=== PATIENT | male | born 1975 | race Caucasian/White ===

== ENCOUNTER 2017-05-29 23:46 | Emergency (ER) | payer OTHER ==
[2017-05-30 00:03] VITALS: BP 133/88; PULSE 111; TEMP 98; BMI 47.7
--- NOTE | 2017-05-30 02:10 | PDOC ---
History of Present Illness <Chasity Rizo - Last Filed: 05/30/17 02:11> - General History Source: Patient Exam Limitations: No Limitations - History of Present Illness Occurred: reports: other (TODAY) Pain Location: reports: face, head Method of Injury: Yes: fall Modifying Factors: improves with: other (PT WAS SEEN A FEW HOURA AGO IN THIS ER BUT THEN LEFT AND WAS FOUND IN ANOTHER PART OF THE HOSPITAL) Loss of Consciousness: unsure <Karen Santoro - Last Filed: 05/30/17 02:24> - General Chief Complaint: Injury Stated Complaint: FALL Time Seen by Provider: 05/30/17 00:11 Past History <Chasity Rizo - Last Filed: 05/30/17 02:11> - Past Medical History Anemia: No Asthma: No Cancer: No Cardiac Disorders: No CVA: No COPD: No CHF: No Dementia: No Diabetes: No GI Disorders: No Disorders: No HTN: No Hypercholesterolemia: No Kidney Stones: No Liver Disease: No Suicide Attempt (Hx): No Seizures: No Thyroid Disease: No - Surgical History Abdominal Surgery: No Appendectomy: No Cardiac Surgery: No Cholecystectomy: No Lung Surgery: No Neurologic Surgery: No Orthopedic Surgery: No - Reproductive History Testicular Surgery: No - Immunization History Immunization Up to Date: Yes - Psycho/Social/Smoking Cessation Hx Anxiety: No Suicidal Ideation: No Smoking Status: No Smoking History: Unknown if ever smoked Have you smoked in the past 12 months: Yes Number of Cigarettes Smoked Daily: 1 Cigars Per Day: 0 Information on smoking cessation initiated: No 'Breaking Loose' booklet given: 10/10/15 Hx Alcohol Use: Yes Drug/Substance Use Hx: Yes Substance Use Type: Alcohol, Heroin, Marijuana Hx Substance Use Treatment: Yes <Karen Santoro - Last Filed: 05/30/17 02:24> - Past Medical History Allergies/Adverse Reactions: Allergies Allergy/AdvReac Type Severity Reaction Status Date / Time No Known Allergies Allergy Verified 05/29/17 19:51 Home Medications: Ambulatory Orders Quetiapine Fumarate [Seroquel] 50 mg PO HS #30 tablet 10/11/15 Trauma Specific PMHX - Complaint Specific PMHX Arthritis: No <Karen Santoro - Last Filed: 05/30/17 02:24> *Physical Exam - Vital Signs Last Vital Signs Temp Pulse Resp BP Pulse Ox 98 F 111 H 18 133/88 99 05/29/17 23:55 05/29/17 23:55 05/29/17 23:55 05/29/17 23:55 05/29/17 23:55 - Physical Exam Comments: 05/30/17 02:11 HEAD: facial hematoma and occipital hematoma. PERRL, EOMI. NECK: No cervical or vertebral tenderneess. LUNGS: Clear to auscultation. ABDOMEN: No rebound or guarding EXTREMITIES: extensive superficial laceration to all his extremities. 10 cm area of ecchymosis on posterior left shoulder. NEURO: Alert, ambulatory PSYCH: combative, agitated, used profuse profanity towards staff <Chasity Rizo - Last Filed: 05/30/17 02:11> - Vital Signs Last Vital Signs Temp Pulse Resp BP Pulse Ox 98 F 111 H 18 133/88 99 05/29/17 23:55 05/29/17 23:55 05/29/17 23:55 05/29/17 23:55 05/29/17 23:55 <Karen Santoro - Last Filed: 05/30/17 02:24> ED Treatment Course - RADIOLOGY Radiology Studies Ordered: Category Date Time Status FACIAL BONES CT W/O CONTRAST [CT] Stat CT Scan 05/30/17 00:[address] WITHOUT CONTRAST [CT] Stat CT Scan 05/30/17 00:13 Taken <Karen Santoro - Last Filed: 05/30/17 02:24> Medical Decision Making - Medical Decision Making 05/30/17 02:14 Patient went missing and left the ED and was found in another part of the hospital <Chasity Rizo - Last Filed: 05/30/17 02:11> - Medical Decision Making 05/30/17 02:20 CAT scan of the head is negative for any acute fracture or intracranial pathology. There is no intracranial hemorrhage CT SCAN OF FACIAL BONES was negative for any facial fractures <Karen Santoro - Last Filed: 05/30/17 02:24> *DC/Admit/Observation/Transfer <Chasity Rizo - Last Filed: 05/30/17 02:11> <Karen Santoro - Last Filed: 05/30/17 02:24> Diagnosis at time of Disposition: PCP dependence., Opioid dependence, Abrasions of multiple sites Head trauma Qualifiers: Encounter type: initial encounter Qualified Code(s): S09.90XA - Unspecified injury of head, initial encounter - Discharge Dispostion Disposition: HOME - Patient Instructions Printed Discharge Instructions: DI for Closed Head Injury, DI for Abrasion Additional Instructions: PLEASE APPLY BACITRACIN TO YOUR ABRASIONS RETURN FOR ANY WORSENING SYMPTOMS
== END 2017-05-30 02:30 | disposition home or self-care (01) ==
LOC: JER 23:46
DX: S09.8XXA Other specified injuries of head, initial encounter (principal); M25.511 Pain in right shoulder; M25.512 Pain in left shoulder; M25.551 Pain in right hip; M25.552 Pain in left hip; T14.8 Other injury of unspecified body region; W17.81XD Fall down embankment (hill), subsequent encounter; F16.20 Hallucinogen dependence, uncomplicated; F10.10 Alcohol abuse, uncomplicated; F12.10 Cannabis abuse, uncomplicated
CPT/HCPCS: 70450-TC; 70486-TC; 99282-25

== ENCOUNTER → 2017-05-29 | Emergency (ER) | payer OTHER ==
[~2017-05-29] MED LIST: KETOROLAC TROMETHAMINE 30 MG/1 ML VIAL IVPUSH ONE; KETOROLAC TROMETHAMINE 30 MG/1 ML VIAL ONE; SODIUM CHLORIDE 1,000 ML IV STA; TETANUS AND DIPHTHERIA TOXOID 0.5 ML DISP.SYRIN IM ONE
[2017-05-29 19:51] VITALS: BP 132/79; PULSE 102; TEMP 98.1; BMI 23.3
--- NOTE | 2017-05-29 20:02 | PDOC ---
History of Present Illness - General Chief Complaint: Injury Stated Complaint: FALL Time Seen by Provider: 05/29/17 19:44 - History of Present Illness Initial Comments: 05/29/17 20:45 42M w/ hx of polysubstance abuse BIBEMS after fall resulting in multiple injuries. Pt reports walking down an embankment in [place] when he tripped, fell , and rolled down a hill banging his head, shoulders, back, and hips into trees and rocks. He reports signfiicant pain on the left side of his face, back of his head, his right hip, and shoulders. He denies any LOC before, during, or after fall. He denies any dizziness before the fall. He denies any n/v/, abdominal pain, blurry vision, seizures. He reports smoking marijuana earlier today, and states that his last drink of alcohol was yesterday when he had a beer. He denies using any other substances today. Past History - Past Medical History Allergies/Adverse Reactions: Allergies Allergy/AdvReac Type Severity Reaction Status Date / Time No Known Allergies Allergy Verified 05/29/17 19:51 Home Medications: Ambulatory Orders Quetiapine Fumarate [Seroquel] 50 mg PO HS #30 tablet 10/11/15 Anemia: No Asthma: No Cancer: No Cardiac Disorders: No CVA: No COPD: No CHF: No Dementia: No Diabetes: No GI Disorders: No Disorders: No HTN: No Hypercholesterolemia: No Kidney Stones: No Liver Disease: No Suicide Attempt (Hx): No Seizures: No Thyroid Disease: No Comment:: 05/29/17 20:49 Denies any PMH - Surgical History Abdominal Surgery: No Appendectomy: No Cardiac Surgery: No Cholecystectomy: No Lung Surgery: No Neurologic Surgery: No Orthopedic Surgery: No Comments:: 05/29/17 20:49 Denies any surgical hx. - Reproductive History Testicular Surgery: No - Immunization History Immunization Up to Date: Yes - Psycho/Social/Smoking Cessation Hx Anxiety: No Suicidal Ideation: No Smoking Status: No Smoking History: Current some day smoker Have you smoked in the past 12 months: Yes Number of Cigarettes Smoked Daily: 20 Cigars Per Day: 0 Information on smoking cessation initiated: No 'Breaking Loose' booklet given: 10/10/15 Hx Alcohol Use: Yes (Occasional) Drug/Substance Use Hx: Yes Substance Use Type: Alcohol, Marijuana Hx Substance Use Treatment: Yes Review of Systems - Review of Systems Comments:: 05/29/17 20:50 General: denies fevers, chills Neuro: no dizziness, no numbness HEENT: no vision changes, no nasal congestion Cardiac: no palpitations, no chest pain resp: no SOB, no wheezing abd: no diarrhea, no constipation extremities: + swelling on shoulders, +erythema on back and arms 05/29/17 20:56 *Physical Exam - Vital Signs Last Vital Signs Temp Pulse Resp BP Pulse Ox 98.1 F 102 H 19 132/79 99 05/29/17 19:45 05/29/17 19:45 05/29/17 19:45 05/29/17 19:45 05/29/17 19:45 - Physical Exam Comments: 05/29/17 20:53 General: belligerant male lying in bed in distress HEENT: large swelling on left temporal area and back of head Neuro: CN2-12 intact, AAOx3 Cardiac: normal s1/s2, RRR, no m/r/g Pulm: CTAB, no wheezing Abd: soft, NT, ND, no organomegaly Extremities: widespread erythema and cuts, and bruises on arms, shoulders, and legs. ED Treatment Course - LABORATORY CBC & Chemistry Diagram: 05/29/17 21:07 05/29/17 21:07 Medical Decision Making - Medical Decision Making 05/29/17 20:56 42M w/ hx of polysubstance abuse presenting after fall down hill resulting in multiple injuries. Pt denies LOC, dizziness, and states that he simply tripped. PE is significant for widespread bruises, cuts, erythema with swelling on face and back of head. -CT head w/o contrast -CT facial bones -PA and lateral CXR -pelvis radiograph -CBC -CMP -Utox -UA -pain meds: IM toradol 30mg -tetanus shot Pt eloped before receiving any imaging. He did not give any warning before doing so. Murali GUARDADO was notified, and attempts were made to locate him and warn him of the dangers of not receiving treatment. 05/29/17 22:06 *DC/Admit/Observation/Transfer Diagnosis at time of Disposition: Traumatic injury of head - Discharge Dispostion Disposition: ELOPED Condition at time of disposition: Poor - Attestations Physician Attestion: 05/29/17 20:59 I, Dr. Skyler Barrientos, attest that this document has been prepared under my direction and personally reviewed by me in its entirety. I further attest, that it accurately reflects all work, treatment, procedures and medical decision -making performed by me.
[2017-05-29 20:58] LABS: URINE APPEARANCE CLEAR; URINE BILIRUBIN NEGATIVE (NEGATIVE); URINE BLOOD 3+ (NEGATIVE); URINE COLOR YELLOW; URINE GLUCOSE (UA) NEGATIVE (NEGATIVE); URINE KETONE NEGATIVE (NEGATIVE); URINE LEUK ESTERASE NEGATIVE (NEGATIVE); URINE NITRITE NEGATIVE (NEGATIVE); URINE UROBILINOGEN NEGATIVE mg/dL (0.2-1.0)
[2017-05-29 20:59] LABS: URINE PROTEIN 1+ (NEGATIVE)
[2017-05-29 21:08] LABS: GRANULAR CASTS 3 /lpf; URINE MUCUS MANY; URINE RBC 122 /hpf (0-3); URINE WBC 2 /hpf (3-5)
[2017-05-29 21:11] LABS: URINE MARIJUANA THC NEGATIVE ng/ml (CUTOFF=50)
[2017-05-29 21:23] LABS: MCH 30.2 pg (25.7-33.7); MCHC 32.5 g/dl (32.0-35.9); MEAN PLT VOLUME 9.8 fl (7.5-11.1); PLATELET COUNT 215 K/MM3 (134-434); RDW 13.5 % (11.9-15.9); WHITE BLOOD COUNT 14.3 K/mm3 (4.0-10.0)
[2017-05-29 22:02] LABS: ALBUMIN 4.2 g/dl (3.4-5.0); ANION GAP 6 (8-16); BILIRUBIN,TOTAL 0.4 mg/dL (0.2-1.0); CALCIUM 8.8 mg/dL (8.5-10.1); CO2 28 mmol/L (21-32); CREATININE 1.1 mg/dL (0.7-1.3); GLUCOSE,RANDOM 74 mg/dL (74-106); SGPT/ALT 41 U/L (12-78); TOT PROT 7.7 g/dl (6.4-8.2)
[2017-05-29 22:03] LABS: ALK PHOS 72 U/L (45-117)
[2017-05-29 22:07] LABS: SGOT/AST 42 U/L (15-37)
== END | disposition left against medical advice (07) ==
LOC: SUPCPDRO 19:36 → JER 19:36
DX: S00.83XA Contusion of other part of head, initial encounter (principal); M25.511 Pain in right shoulder; M25.512 Pain in left shoulder; M25.551 Pain in right hip; M25.552 Pain in left hip; M54.5 Low back pain; W17.81XA Fall down embankment (hill), initial encounter; Y93.89 Activity, other specified; Y92.89 Other specified places as the place of occurrence of the external cause; Y99.8 Other external cause status
CPT/HCPCS: 36415; 71020-TC; 72170-TC; 80053; 80307; 81003; 81015; 85027; 99281-25

== ENCOUNTER 2017-07-12 21:35 | Emergency (ER) | payer SELFPAY ==
[2017-07-12 21:59] VITALS: BP 137/69; PULSE 75; TEMP 98.9; BMI 24.4
== END 2017-07-12 22:18 | disposition left against medical advice (07) ==
LOC: SUPCPDRO 21:35 → JER 21:35
DX: Z53.21 Procedure and treatment not carried out due to patient leaving prior to being seen by health care provider (principal)
CPT/HCPCS: 99281-25

== ENCOUNTER 2017-07-15 03:56 | Emergency (ER) | payer SELFPAY ==
[2017-07-15] MEDS ORDERED: diphenhydrAMINE HCL 25 MG CAPSULE (FP) PO ONE (04:32)
--- NOTE | 2017-07-15 04:32 | PDOC ---
History of Present Illness - General History Source: Patient Exam Limitations: No Limitations - History of Present Illness Initial Comments: 07/15/17 05:23 42-year-old male with a history of asthma presents to the emergency department complaining of dyskinesia after smoking a marijuana cigarette. Patient denies any headache, dizziness, lightheadedness, disturbance, neck pain, back pains, chest shortness of breath, abdominal pains, flank pains, urinary symptoms, extremity numbness or tingling sensation. Timing/Duration: 1 hour <Heidi Moreno - Last Filed: 07/15/17 05:23> - History of Present Illness Initial Comments: 07/15/17 05:50 Pt seen by Midlevel Provider under my direct supervision. Documentation has been prepared under my direction and personally reviewed by me in its entirety. I attest that this document accurately reflects all work, treatment, procedures and medical decision-making performed. I agree with plan as outlined by Midlevel Provider. (Gil Hall I) <Gil Hall I - Last Filed: 07/15/17 06:08> - General Stated Complaint: TIGHTNESS IN NECK Time Seen by Provider: 07/15/17 04:24 Past History - Past Medical History Anemia: No Asthma: No Cancer: No Cardiac Disorders: No CVA: No COPD: No CHF: No Dementia: No Diabetes: No GI Disorders: No Disorders: No HTN: No Hypercholesterolemia: No Kidney Stones: No Liver Disease: No Suicide Attempt (Hx): No Seizures: No Thyroid Disease: No - Surgical History Abdominal Surgery: No Appendectomy: No Cardiac Surgery: No Cholecystectomy: No Lung Surgery: No Neurologic Surgery: No Orthopedic Surgery: No - Reproductive History Testicular Surgery: No - Immunization History Immunization Up to Date: Yes - Psycho/Social/Smoking Cessation Hx Anxiety: No Suicidal Ideation: No Smoking Status: No Smoking History: Unknown if ever smoked Have you smoked in the past 12 months: Yes Number of Cigarettes Smoked Daily: 1 Cigars Per Day: 0 'Breaking Loose' booklet given: 10/10/15 Hx Alcohol Use: Yes Drug/Substance Use Hx: Yes Substance Use Type: Alcohol, Heroin, Marijuana Hx Substance Use Treatment: Yes <Heidi Moreno - Last Filed: 07/15/17 05:23> <Gil Hall I - Last Filed: 07/15/17 06:08> - Past Medical History Allergies/Adverse Reactions: Allergies Allergy/AdvReac Type Severity Reaction Status Date / Time No Known Allergies Allergy Verified 07/12/17 21:52 Home Medications: Ambulatory Orders Quetiapine Fumarate [Seroquel] 50 mg PO HS #30 tablet 10/11/15 Review of Systems - Review of Systems Able to Perform ROS?: Yes Comments:: 07/15/17 04:34 CONSTITUTIONAL: Absent: fever, chills, diaphoresis, generalized weakness, malaise, loss of appetite HEENT: +Involuntary movement to jaw/neck Absent: rhinorrhea, nasal congestion, throat pain, throat swelling, difficulty swallowing, mouth swelling, ear pain, eye pain, visual Changes CARDIOVASCULAR: Absent: chest pain, loss of consciousness, palpitations, irregular heart rate, peripheral edema RESPIRATORY: Absent: cough, shortness of breath, dyspnea with exertion, orthopnea, wheezing, stridor, hemoptysis GASTROINTESTINAL: Absent: abdominal pain, abdominal distension, nausea, vomiting, diarrhea, constipation, melena, hematochezia GENITOURINARY: Absent: dysuria, frequency, urgency, hesitancy, hematuria, flank pain, genital pain MUSCULOSKELETAL: Absent: myalgia, arthralgia, joint swelling SKIN: Absent: rash, itching, pallor HEMATOLOGIC/IMMUNOLOGIC: Absent: easy bleeding, easy bruising, lymphadenopathy, frequent infections ENDOCRINE: Absent: unexplained weight gain, unexplained weight loss, heat intolerance, cold intolerance NEUROLOGIC: Absent: headache, focal weakness or paresthesias, dizziness, unsteady gait, seizure, mental status changes, bladder or bowel incontinence PSYCHIATRIC: Absent: anxiety, depression, suicidal or homicidal ideation, hallucinations. Is the patient limited Somali proficient: No <Heidi Moreno - Last Filed: 07/15/17 05:23> *Physical Exam - Physical Exam Comments: 07/15/17 04:34 GENERAL: Well developed, well nourished. Awake and alert. No acute distress. HEENT: Normocephalic, atraumatic. PERRLA, EOMI. No conjunctival pallor. Sclera are non- icteric. Moist mucous membranes. Oropharynx is clear. NECK: Supple. Full ROM. No JVD. Carotid pulses 2+ and symmetric, without bruits. No thyromegaly. No lymphadenopathy. CARDIOVASCULAR: Regular rate and rhythm. No murmurs, rubs, or gallops. Distal pulses are 2+ and symmetric. PULMONARY: No evidence of respiratory distress. Lungs clear to auscultation bilaterally. No wheezing, rales or rhonchi. ABDOMINAL: Soft. Non-tender. Non-distended. No rebound or guarding. No organomegaly. Normoactive bowel sounds. MUSCULOSKELETAL Normal range of motion at all joints. No bony deformities or tenderness. No CVA tenderness. EXTREMITIES: No cyanosis. No clubbing. No edema. No calf tenderness. SKIN: Warm and dry. Normal capillary refill. No rashes. No jaundice. NEUROLOGICAL: Alert, awake, appropriate. Cranial nerves 2-12 intact. No deficits to light touch and temperature in face, upper extremities and lower extremities. No motor deficits in the in face, upper extremities and lower extremities. Normoreflexic in the upper and lower extremities. Normal speech. Toes are down- going bilaterally. Gait is normal without ataxia. PSYCHIATRIC: Cooperative. Good eye contact. Appropriate mood and affect. <Heidi Moreno - Last Filed: 07/15/17 05:23> - Vital Signs Last Vital Signs Temp Pulse Resp BP Pulse Ox 98.7 F 79 18 141/79 100 07/15/17 04:43 07/15/17 04:43 07/15/17 04:43 07/15/17 04:43 07/15/17 04:43 <Gil Hall I - Last Filed: 07/15/17 06:08> Heart Score/ECG Review - History History: Slightly suspicious - Electrocardiogram EKG: Normal - Age Age: >/= 65 - Risk Factors Based on the list above the patient has:: 1-2 risk factors - Troponin Troponin: </= normal limit - Score Heart Score - Total: 3 <Heidi Moreno - Last Filed: 07/15/17 05:23> ED Treatment Course - Medications Given in the ED: ED Medications Discontinued Medications Generic Name Dose Route Start Last Admin Trade Name Freq PRN Reason Stop Dose Admin Diphenhydramine HCl 50 mg 07/15/17 04:32 07/15/17 04:50 Benadryl - PO 07/15/17 04:33 Not Given ONCE ONE Diphenhydramine HCl 50 mg 07/15/17 04:33 07/15/17 04:49 Benadryl Injection - IM 07/15/17 04:34 50 mg ONCE ONE Administration <Gil Hall I - Last Filed: 07/15/17 06:08> *DC/Admit/Observation/Transfer - Discharge Dispostion Admit: No <Heidi Moreno - Last Filed: 07/15/17 05:23> <Gil Hall I - Last Filed: 07/15/17 06:08> Diagnosis at time of Disposition: Dyskinesia - Discharge Dispostion Condition at time of disposition: Stable - Referrals Referrals: Audrey Hansen MD [Staff Physician] - - Patient Instructions Printed Discharge Instructions: DI for Tardive Dyskinesia Additional Instructions: Avoid illegal narcotics/drugs Follow-up with your primary care physician or the one listed on your discharge Return back to the emergency department as needed
[2017-07-15 04:48] VITALS: BP 141/79; PULSE 79; TEMP 98.7; BMI 25.2
--- NOTE | 2017-07-24 20:33 | EKG ---
Test Reason : Blood Pressure : / mmHG Vent. Rate : 094 BPM Atrial Rate : 094 BPM P-R Int : 156 ms QRS Dur : 082 ms QT Int : 328 ms P-R-T Axes : 071 070 063 degrees QTc Int : 410 ms POOR DATA QUALITY, INTERPRETATION MAY BE ADVERSELY AFFECTED NORMAL SINUS RHYTHM NORMAL ECG WHEN COMPARED WITH ECG OF 02-DEC-2015 10:59, NO SIGNIFICANT CHANGE WAS FOUND SUBMITTED ON07-24-2017 SUBOPTIMAL EKG NO CLINICAL INFORMATION IS AVAILABLE REPEAT EKG IF CLINICALLY INDICATED Confirmed by DAVID VOGT MD ([id number]) on 07/24/2017 8:32:52 PM Referred By: Confirmed By:DAVID VOGT MD
== END 2017-07-15 06:35 | disposition home or self-care (01) ==
LOC: JER 03:56
PROC: 3E023GC Introduction of Other Therapeutic Substance into Muscle, Percutaneous Approach (ICD-10-PCS; principal; 2017-07-15)
DX: T40.7X4A Poisoning by cannabis (derivatives), undetermined, initial encounter (principal); G24.01 Drug induced subacute dyskinesia; Y92.89 Other specified places as the place of occurrence of the external cause
CPT/HCPCS: 93005; 93010; 99281-25

== ENCOUNTER 2018-03-15 22:05 | Emergency (ER) | payer OTHER ==
[2018-03-15 22:21] VITALS: BP 158/98; PULSE 106; TEMP 98.8; BMI 25.7
--- NOTE | 2018-03-15 22:54 | PDOC ---
*Physical Exam - Vital Signs Last Vital Signs Temp Pulse Resp BP Pulse Ox 98.8 F 106 H 18 158/98 97 03/15/18 22:17 03/15/18 22:17 03/15/18 22:17 03/15/18 22:17 03/15/18 22:17 - Physical Exam Comments: 03/15/18 22:53 The patient was examined by [FILTER TENDER JELLY Nikunj] under my direct supervision. I personally evaluated the patient. I concur with the above findings and the plan of care. *DC/Admit/Observation/Transfer Diagnosis at time of Disposition: Abscess of scrotal wall, Cellulitis - Discharge Dispostion Disposition: HOME Condition at time of disposition: Fair - Prescriptions Prescriptions: Cephalexin Monohydrate [Keflex -] 500 mg PO Q6H #28 capsule Sulfamethoxazole/Trimethoprim [Bactrim DS -] 1 tab PO BID #14 tablet - Referrals Referrals: Jonnie Valdovinos MD [Staff Physician] - Erik Chen MD [Staff Physician] - - Patient Instructions Printed Discharge Instructions: DI for Cellulitis -- Adult, DI for Scrotal Abscess Additional Instructions: Take Bactrim one tablet twice a day for the next 7 days. Take Keflex 4 times a day for the next 7 days. Finish all tablets of both of these medications even if you begin to feel better. You have been given a number to Dr. Chen, a urologist. If Symptoms do not improve within the 5 days, make an appointment for evaluation. You have been given a recommendation to see Dr. Cristina abuses her primary doctor going forward. Please call for an appointment for evaluation within the next 7 days. Return to the emergency department for any fevers, chills, discharge or drainage , worsening pain, foul odor from her genitals or any other concerns. - Post Discharge Activity
--- NOTE | 2018-03-15 23:02 | PDOC ---
History of Present Illness - General Chief Complaint: Wound Stated Complaint: INFECTION Time Seen by Provider: 03/15/18 22:32 History Source: Patient, Old Records Exam Limitations: No Limitations - History of Present Illness Initial Comments: 03/15/18 23:04 This is a 43-year-old male with past medical history of heroin use who presents emergency Department with pain to his left scrotum for the past one week. Patient states he's had multiple abscesses with MRSA in the past which she has been treated with Bactrim. Patient denies any IV drug use or injection into his scrotum at this time. The patient also with abrasion noted to his left lower leg with surrounding area of redness. Patient denies any fevers, chills, dysuria , hematuria. Past History - Past Medical History Allergies/Adverse Reactions: Allergies Allergy/AdvReac Type Severity Reaction Status Date / Time No Known Allergies Allergy Verified 01/20/18 15:03 Home Medications: Ambulatory Orders Quetiapine Fumarate [Seroquel] 50 mg PO HS #30 tablet 10/11/15 Cephalexin Monohydrate [Keflex -] 500 mg PO Q6H #28 capsule 03/16/18 Sulfamethoxazole/Trimethoprim [Bactrim DS -] 1 tab PO BID #14 tablet 03/16/18 Anemia: No Asthma: No Cancer: No Cardiac Disorders: No CVA: No COPD: No CHF: No Dementia: No Diabetes: No GI Disorders: No Disorders: No HTN: No Hypercholesterolemia: No Kidney Stones: No Liver Disease: No Seizures: No Thyroid Disease: No - Surgical History Abdominal Surgery: No Appendectomy: No Cardiac Surgery: No Cholecystectomy: No Lung Surgery: No Neurologic Surgery: No Orthopedic Surgery: No - Reproductive History Testicular Surgery: No - Immunization History Immunization Up to Date: Yes - Suicide/Smoking/Psychosocial Hx Smoking Status: No Smoking History: Current every day smoker Have you smoked in the past 12 months: Yes Number of Cigarettes Smoked Daily: 5 Cigars Per Day: 0 Information on smoking cessation initiated: No 'Breaking Loose' booklet given: 10/10/15 Hx Alcohol Use: No Drug/Substance Use Hx: Yes Substance Use Type: Heroin, Marijuana Hx Substance Use Treatment: Yes Review of Systems - Review of Systems Able to Perform ROS?: Yes Is the patient limited Libyan proficient: No Constitutional: No: Symptoms Reported HEENTM: No: Symptoms Reported Respiratory: No: Symptoms reported Cardiac (ROS): No: Symptoms Reported ABD/GI: No: Symptoms Reported : Yes: See HPI Musculoskeletal: No: Symptoms Reported Integumentary: Yes: See HPI Neurological: No: Symptoms reported *Physical Exam - Vital Signs Last Vital Signs Temp Pulse Resp BP Pulse Ox 98.8 F 106 H 18 158/98 97 03/15/18 22:17 03/15/18 22:17 03/15/18 22:17 03/15/18 22:17 03/15/18 22:17 - Physical Exam General Appearance: Yes: Appropriately Dressed. No: Apparent Distress HEENT: positive: EOMI, TALIB Neck: positive: Trachea midline Respiratory/Chest: positive: Lungs Clear, Normal Breath Sounds. negative: Respiratory Distress, Accessory Muscle Use Cardiovascular: positive: Regular Rhythm, Regular Rate. negative: Murmur Gastrointestinal/Abdominal: positive: Normal Bowel Sounds, Soft. negative: Tender Male Genitalia: positive: other (4 cm circular area of induration noted with open area to the center of induration. Unable to express fluid at this time.). negative: discharge, testicular tenderness, testicular mass, epididymus tender, inguinal hernia Musculoskeletal: positive: Normal Inspection. negative: CVA Tenderness Extremity: positive: Normal Range of Motion, Erythema (Healing abrasion noted to the left lateral lower leg with surrounding area of erythema. No induration or fluctuance noted.) Integumentary: positive: Normal Color, Dry, Warm Neurologic: positive: Alert, Normal Response Medical Decision Making - Medical Decision Making 03/16/18 01:10 A/P: 43 yo man with h/o multiple MRSA abscesses with induration to left anterior scrotal wall induration to left scrotal wall measuring 4cm circular. No area of fluctuance noted. self draining per patient No sq emphysema, crepitus noted on palpation multiple abrasions to bilateral lower extremities with 10x6cm abrasion with surrounding erythema to left lateral lower leg scrotal u/s, HIV, FSBG 03/16/18 01:37 Ultrasound as read by imaging induction coordination engineer: 3.4 x 3.2 x 1.6 cm complex, heterogeneous, vascular focus in the left scrotal wall area of scrotal induration. Findings could represent focal cellulitis, phlegmon or developing abscess. No testicular torsion bilaterally. Appropriate arterial and venous waveforms present. Unremarkable epididymides Small bilateral hydroceles 03/16/18 03:17 Laboratory Results - last 24 hr 03/16/18 03/16/18 00:32 01:49 POC Glucometer [id number] HIV 1&2 Antibody Screen Negative HIV P24 Antigen Negative Negative HIV testing and blood glucose of 135, low likelihood for Sarita's. I will discharge the patient home with prescriptions for Keflex and Bactrim to cover cellulitis and possible developing abscess in the scrotum. All results have been discussed with the patient verbalizes understanding of results. *DC/Admit/Observation/Transfer Diagnosis at time of Disposition: Abscess of scrotal wall Cellulitis Qualifiers: Site of cellulitis: extremity Site of cellulitis of extremity: lower extremity Laterality: left Qualified Code(s): L03.116 - Cellulitis of left lower limb - Discharge Dispostion Disposition: HOME Condition at time of disposition: Fair Decision to Admit order: No - Prescriptions Prescriptions: Cephalexin Monohydrate [Keflex -] 500 mg PO Q6H #28 capsule Sulfamethoxazole/Trimethoprim [Bactrim DS -] 1 tab PO BID #14 tablet - Referrals Referrals: Erik Chen MD [Staff Physician] - Jonnie Valdovinos MD [Staff Physician] - - Patient Instructions Printed Discharge Instructions: DI for Cellulitis -- Adult, DI for Scrotal Abscess Additional Instructions: Take Bactrim one tablet twice a day for the next 7 days. Take Keflex 4 times a day for the next 7 days. Finish all tablets of both of these medications even if you begin to feel better. You have been given a number to Dr. Chen, a urologist. If Symptoms do not improve within the 5 days, make an appointment for evaluation. You have been given a recommendation to see Dr. Cristina abuses her primary doctor going forward. Please call for an appointment for evaluation within the next 7 days. Return to the emergency department for any fevers, chills, discharge or drainage , worsening pain, foul odor from her genitals or any other concerns. - Post Discharge Activity
--- NOTE | 2018-03-17 14:02 | PDOC ---
Patient Follow-up (Call Back) - Post ED Follow - Up Condition at time of discharge: Fair Disposition at time of original discharge: HOME Reason for Call Back: Abnwl. Microbiology (MRSA positive. Pt already on bactrim. No further follow up needed)
== END 2018-03-16 03:21 | disposition home or self-care (01) ==
LOC: JER 22:05
DX: N49.2 Inflammatory disorders of scrotum (principal); B95.7 Other staphylococcus as the cause of diseases classified elsewhere; B96.89 Other specified bacterial agents as the cause of diseases classified elsewhere; Z86.14 Personal history of Methicillin resistant Staphylococcus aureus infection
CPT/HCPCS: 36415; 76870-TC; 82962; 87070; 87186; 87205; 87389; 99281-25

== ENCOUNTER 2018-04-04 10:27 | Inpatient (IN) | payer OTHER ==
[2018-04-04 11:39] VITALS: BMI 24.6
--- NOTE | 2018-04-04 13:24 | HP ---
COWS - Scale Resting Pulse: 1= MD 81-100 Sweatin=Flushed/Facial Moisture Restless Observation: 3= Extraneous Movement Pupil Size: 2= Moderately Dilated Bone or Joint Aches: 2= Severe Diffuse Aches Runny Nose/ Eye Tearin= Runny Nose/Eyes GI Upset > 30mins: 3= Vomiting/Diarrhea Tremor Observation: 2= Slight Tremor Visible Yawning Observation: 2= >3x During Session Anxiety or Irritability: 2=Irritable/Anxious Goose Flesh Skin: 0=Smooth Skin COWS Score: 21 Admission ROS S - HPI Chief Complaint: i am here,needed help to stop using heroin,marijuana,pcp Allergies/Adverse Reactions: Allergies Allergy/AdvReac Type Severity Reaction Status Date / Time No Known Allergies Allergy Verified 04/04/18 12:09 History of Present Illness: this 43 years old male with heroin marijuana and pcp dependence,seeking detox, withdrawal symptom,last treatment [facility] from 10/10/15 to 10/13/15 not completed nicotine dependence insomnia treated for abscess of scrotum at [facility] 1 month no significant period of sobriety Exam Limitations: No Limitations - Ebola screening Have you traveled outside of the country in the last 21 days: No (N) Have you had contact with anyone from an Ebola affected area: No Have you been sick,other than usual withdrawal symptoms: No Do you have a fever: No - Review of Systems Constitutional: Chills, Diaphoresis, Loss of Appetite, Malaise, Night Sweats, Weakness, Unintentional Wgt. Loss EENT: reports: Tearing, Nose Congestion Respiratory: reports: No Symptoms reported Cardiac: reports: No Symptoms Reported GI: reports: Diarrhea, Nausea, Vomiting : reports: No Symptoms Reported Musculoskeletal: reports: Back Pain, Joint Pain, Muscle Pain, Joint Stiffness Integumentary: reports: Dryness, Other (abscess) Neuro: reports: Headache, Tremors Endocrine: reports: No Symptoms Reported Hematology: reports: No Symptoms Reported Psychiatric: reports: No Sypmtoms Reported, Judgement Intact, Mood/Affect Appropiate, Orientated x3 (insomnia) Patient History - Patient Medical History Hx Anemia: No Hx Asthma: No Hx Chronic Obstructive Pulmonary Disease (COPD): No Hx Cancer: No Hx Cardiac Disorders: No Hx Congestive Heart Failure: No Hx Hypertension: No Hx Hypercholesterolemia: No Hx Pacemaker: No HX Cerebrovascular Accident: No Hx Seizures: No Hx Dementia: No Hx Diabetes: No Hx Gastrointestinal Disorders: No Hx Liver Disease: No Hx Genitourinary Disorders: No Hx Sexually Transmitted Disorders: No Hx Renal Disease (ESRD): No Hx Thyroid Disease: No Hx Human Immunodeficiency Virus (HIV): No (last 02/13 negative) Hx Hepatitis C: No Hx Depression: Yes Hx Suicide Attempt: No Hx Bipolar Disorder: Yes (seroquel, celexa, trazodone, rispedal as per hx , non compliant ) Hx Schizophrenia: No Other Medical History: no suicdal,no homicidal - Patient Surgical History Past Surgical History: No Hx Neurologic Surgery: No Hx Cataract Extraction: No Hx Cardiac Surgery: No Hx Lung Surgery: No Hx Breast Surgery: No Hx Breast Biopsy: No Hx Abdominal Surgery: No Hx Appendectomy: No Hx Cholecystectomy: No Hx Genitourinary Surgery: No Hx Section: No Hx Orthopedic Surgery: No Anesthesia Reaction: No - PPD History Previous Implant?: Yes Documented Results: Negative w/o proof Implanted On Prior [facility] Admission?: Yes Date: 10/12/15 PPD to be Administered?: Yes - Smoking Cessation Smoking history: Current every day smoker Have you smoked in the past 12 months: Yes Aproximately how many cigarettes per day: 5 Cigars Per Day: 0 Hx Chewing Tobacco Use: No Initiated information on smoking cessation: Yes 'Breaking Loose' booklet given: 04/04/18 - Substance & Tx. History Hx Alcohol Use: No Hx Substance Use: Yes Substance Use Type: Heroin Hx Substance Use Treatment: Yes ([facility] 10/10/15 to 10/13/15 not completed) - Substances Abused Heroin Route: Inhalation Frequency: Daily Amount used: 4 BAGS Age of first use: 23 Date of Last Use: 04/03/18 Marijuana/Hashish Route: Smoking Frequency: Daily Amount used: 1 BLUNT Age of first use: 15 Date of Last Use: 04/03/18 PCP Route: Smoking Frequency: 1-2 times per week Amount used: 1-2 BAGS Age of first use: 20 Date of Last Use: 03/28/18 Family Disease History - Family Disease History Family Disease History: Diabetes: Grandparent, Heart Disease: Grandparent, Other : Father (HIV/AIDS , iv drug user ) Admission Physical Exam BHS - Vital Signs Vital Signs: Vital Signs - 24 hr 04/04/18 11:36 Pulse Rate 98 H Respiratory 20 Rate Blood Pressure 110/80 - Physical General Appearance: Yes: Moderate Distress, Tremorous, Irritable, Sweating, Anxious HEENTM: Yes: Normal ENT Inspection, TALIB, Pharynx Normal Respiratory: Yes: Lungs Clear, Normal Breath Sounds, No Respiratory Distress Neck: Yes: Within Normal Limits, Supple, Trachea in good position Breast: Yes: Within Normal Limits Cardiology: Yes: Within Normal Limits, Regular Rhythm, Regular Rate, S1, S2 Abdominal: Yes: Within Normal Limits, Normal Bowel Sounds, Non Tender, Flat, Soft Genitourinary: Yes: Within Normal Limits Back: Yes: Normal Inspection, Muscle Spasm Musculoskeletal: Yes: full range of Motion, Back pain, Joint Stiffness, Muscle Pain Extremities: Yes: Tremors Neurological: Yes: pesticide applicator II-XII NML intact, Fully Oriented, Alert, Motor Strength 5/5 Integumentary: Yes: Dry, Other (resolving abscess both inguinal leigh cyst lef srotal area) Lymphatic: Yes: Within Normal Limits - Diagnostic (1) Opioid dependence with withdrawal Current Visit: No Status: Acute (2) Cannabis dependence Current Visit: No Status: Chronic (3) PCP dependence. Current Visit: No Status: Chronic (4) Abscess of scrotal wall Current Visit: No Status: Acute (5) Cellulitis Current Visit: No Status: Acute Qualifiers: Site of cellulitis: extremity Site of cellulitis of extremity: lower extremity Laterality: left Qualified Code(s): L03.116 - Cellulitis of left lower limb (6) Weight loss counseling, encounter for Current Visit: Yes Status: Acute Cleared for Admission [facility] - Detox or Rehab [facility] Level of Care: Medically Managed Detox Regimen/Protocol: Methadone [facility] Breath Alcohol Content Breath Alcohol Content: 0 Urine Drug Screen - Results Drug Screen Negative: No Urine Drug Screen Results: THC-Marijuana, OPI-Opiates, PCP-Phencyclidine, TCA- Tricyclic Antidepress
[2018-04-04] MEDS ORDERED: ACETAMINOPHEN 325 MG TABLET (FP) PO PRN (13:39)
[2018-04-04] MEDS ORDERED: LOPERAMIDE HCL 2 MG CAPSULE PO PRN (13:39)
[2018-04-04] MEDS ORDERED: MAG HYDROX/AL HYDROX/SIMETH 30 ML UNIT-DOSE CUP PO PRN (13:39)
[2018-04-04] MEDS ORDERED: IBUPROFEN 400 MG TABLET (FP) PO PRN (13:39)
[2018-04-04] MEDS ORDERED: guaiFENesin/D-METHORPHAN HB 10 ML UNIT-DOSE CUPS PO PRN (13:39)
[2018-04-04] MEDS ORDERED: hydrOXYzine PAMOATE 25 MG CAPSULE (FP) PO PRN (13:39)
[2018-04-04] MEDS ORDERED: MAGNESIUM HYDROX 2400MG/30ML ORAL SUSPENSION 30 ML CUP PO PRN (13:39)
[2018-04-04] MEDS ORDERED: MAGNESIUM CITRATE 300 ML BOTTLE PO PRN (13:39)
[2018-04-04] MEDS ORDERED: P-EPHED 60MG/TRIPROLIDI 2.5MG TABLET PO PRN (13:39)
[2018-04-04] MEDS ORDERED: MENTHOL/PHENOL 1 EACH UD MM PRN (13:39)
--- NOTE | 2018-04-04 13:53 | CONSULT ---
[facility] Psychiatric Consult - Data Date of interview: 04/04/18 Admission source: [facility] Identifying data: This 43 years old male, single father of two, living alone, unemployed, with no psychiatric hospitalization history, with heroin marijuana and pcp dependence, reportingn withdrawal symptoms, seeking for detox, Substance Abuse History: - Smoking Cessation. Smoking history: Current every day smoker. Have you smoked in the past 12 months: Yes. Aproximately how many cigarettes per day: 5. Cigars Per Day: 0. Hx Chewing Tobacco Use: No. Initiated information on smoking cessation: Yes. 'Breaking Loose' booklet given : 04/04/18. - Substance & Tx. History. Hx Alcohol Use: No. Hx Substance Use: Yes. Substance Use Type: Heroin. Hx Substance Use Treatment: Yes ([facility] to 10/13/15 not completed). - Substances Abused. Heroin. Route: Inhalation. Frequency: Daily. Amount used: 4 BAGS. Age of first use: 23. Date of Last Use: 04/03/18. Marijuana/Hashish. Route: Smoking. Frequency: Daily. Amount used: 1 BLUNT. Age of first use: 15. Date of Last Use: . PCP. Route: Smoking. Frequency: 1-2 times per week. Amount used: 1-2 BAGS. Age of first use: 20. Date of Last Use: 03/28/18 Medical History: Denies significant medical issues Psychiatric History: Patient reports history of depression and nxiety, repoprts severe insomnia, reports Benadryl 100mg was helpful in the past Physical/Sexual Abuse/Trauma History: Denies Additional Comment: Benadryl 100mg po qhs Mental Status Exam - Mental Status Exam Alert and Oriented to: Place, Person Cognitive Function: Fair Patient Appearance: Well Groomed Mood: Anxious, Irritable Affect: Labile Patient Behavior: Cooperative Speech Pattern: Excessive Voice Loudness: Normal Thought Process: Goal Oriented Thought Disorder: Being Controlled Hallucinations: Denies Suicidal Ideation: Denies Homicidal Ideation: Denies Insight/Judgement: Fair Sleep: Difficulty falling asleep Appetite: Fair Muscle strength/Tone: Normal Gait/Station: Normal Additional Comments: Benadryl 100mg po qhs Psychiatric Findings - Problem List ([place] 1, 2,3) (1) Drug-induced mood disorder Current Visit: Yes Status: Acute (2) Alcohol dependence with uncomplicated withdrawal Current Visit: No Status: Acute (3) Drug-induced mood disorder Current Visit: No Status: Acute (4) Heroin overdose Current Visit: No Status: Acute Qualifiers: Encounter type: initial encounter Injury intent: accidental or unintentional Qualified Code(s): T40.1X1A - Poisoning by heroin, accidental ( unintentional), initial encounter (5) Opioid dependence with withdrawal Current Visit: No Status: Acute (6) Cannabis dependence Current Visit: No Status: Chronic (7) Nicotine dependence Current Visit: No Status: Chronic (8) PCP dependence. Current Visit: No Status: Chronic - Initial Treatment Plan Initial Treatment Plan: Benadryl 100mg po qhs
[2018-04-04] MEDS ORDERED: METHADONE HCL 10 MG TABLET (FOR DETOX USE ONLY) PO ONE ×2 (14:00→23:00)
[2018-04-04] MEDS: diazePAM 5 MG TABLET PO PRN (14:58)
[2018-04-04] MEDS ORDERED: diphenhydrAMINE HCL 50 MG CAPSULE PO PRN (15:08)
[2018-04-04] MEDS: CEPHALEXIN MONOHYDRATE 500 MG CAPSULE (UD) PO SCH ×2 (17:39→23:01)
[2018-04-04 18:00] LABS: URINE APPEARANCE CLEAR; URINE BILIRUBIN NEGATIVE (<2.0 mg/dL); URINE BLOOD NEGATIVE (NEGATIVE); URINE COLOR YELLOW; URINE GLUCOSE (UA) NEGATIVE (NEGATIVE); URINE KETONE NEGATIVE (NEGATIVE); URINE LEUK ESTERASE NEGATIVE (NEGATIVE); URINE NITRITE NEGATIVE (NEGATIVE); URINE PROTEIN NEGATIVE (NEGATIVE); URINE UROBILINOGEN NEGATIVE mg/dL (0.2-1.0)
[2018-04-04] MEDS ORDERED: diphenhydrAMINE HCL 25 MG CAPSULE (FP) PO ONE (20:33)
[2018-04-04] MEDS ORDERED: MELATONIN 5 MG TABLETS PO PRN (22:00)
[2018-04-04] MEDS: diphenhydrAMINE HCL 50 MG CAPSULE PO SCH (22:33)
[2018-04-04] MEDS: SULFAMETHOXAZOLE/TRIMETHOPRIM 800MG/160MG D.S. TABLET PO SCH (22:34)
[2018-04-04] MEDS: THIAMINE HCL 100 MG TABLET (FP) PO SCH (22:34)
[2018-04-05] MEDS: CEPHALEXIN MONOHYDRATE 500 MG CAPSULE (UD) PO SCH ×4 (06:22→23:17)
[2018-04-05] MEDS ORDERED: METHADONE HCL 10 MG TABLET (FOR DETOX USE ONLY) PO ONE (10:00)
[2018-04-05 10:29] LABS: HEMATOCRIT 42.8 % (35.4-49); HEMOGLOBIN 14.6 GM/dL (11.7-16.9); MCHC 34.1 g/dl (32.0-35.9); MEAN CELL VOLUME 90.9 fl (80-96); MEAN PLT VOLUME 10.4 fl (7.5-11.1); PLATELET COUNT 253 K/MM3 (134-434); RDW 13.8 % (11.9-15.9); WHITE BLOOD COUNT 6.3 K/mm3 (4.0-10.0)
[2018-04-05 10:39] LABS: ALBUMIN 3.8 g/dl (3.4-5.0); ANION GAP 7 (8-16); BLOOD UREA NITROGEN 16 mg/dL (7-18); CHLORIDE 100 mmol/L (98-107); CO2 29 mmol/L (21-32); CREATININE 0.9 mg/dL (0.7-1.3); GLUCOSE,RANDOM 130 mg/dL (74-106); SGOT/AST 19 U/L (15-37); SGPT/ALT 28 U/L (12-78); SODIUM 136 mmol/L (136-145)
[2018-04-05 10:40] LABS: ALK PHOS 68 U/L (45-117); BILIRUBIN,TOTAL 0.3 mg/dL (0.2-1.0); TOT PROT 7.3 g/dl (6.4-8.2)
--- NOTE | 2018-04-05 10:50 | EKG ---
Test Reason : Blood Pressure : / mmHG Vent. Rate : 088 BPM Atrial Rate : 088 BPM P-R Int : 160 ms QRS Dur : 088 ms QT Int : 338 ms P-R-T Axes : 069 059 055 degrees QTc Int : 408 ms NORMAL SINUS RHYTHM POSSIBLE LEFT ATRIAL ENLARGEMENT BORDERLINE ECG WHEN COMPARED WITH ECG OF 20-JAN-2018 16:15, NO SIGNIFICANT CHANGE WAS FOUND Confirmed by TIO SCHAEFER MD ([id number]) on 04/05/2018 10:49:53 AM Referred By: Confirmed By:TIO SCHAEFER MD
[2018-04-05] MEDS: PRENATAL VITAMINS W/ FOLIC ACID TABLET (FP) PO SCH (11:06)
[2018-04-05] MEDS: SULFAMETHOXAZOLE/TRIMETHOPRIM 800MG/160MG D.S. TABLET PO SCH ×2 (11:06→22:44)
[2018-04-05] MEDS: diazePAM 5 MG TABLET PO PRN ×2 (11:06→22:44)
--- NOTE | 2018-04-05 13:42 | PN ---
S COWS - Scale Resting Pulse: 0= VT 80 or Below Sweatin= Chills/Flushing Restless Observation: 3= Extraneous Movement Pupil Size: 1= Pupils >than Normal Bone or Joint Aches: 2= Severe Diffuse Aches Runny Nose/ Eye Tearin= Runny Nose/Eyes GI Upset > 30mins: 2= Nausea/Diarrhea Tremor Observation of Outstretched Hands: 2= Slight Tremor Visible Yawning Observation: 1= 1-2x During Session Anxiety or Irritability: 2=Irritable/Anxious Goose Flesh Skin: 0=Smooth Skin COWS Score: 16 S Progress Note (SOAP) Subjective: alert,irritable,anxious,interrupted sleep,tremor,pain in the body and back Objective: 04/05/18 13:39 Vital Signs Temperature 96.4 F L 04/05/18 11:22 Pulse Rate 79 04/05/18 11:22 Respiratory Rate 18 04/05/18 11:22 Blood Pressure 99/63 04/05/18 11:22 O2 Sat by Pulse Oximetry (%) ekg nsr prolog qt 338/408 no chest pain,no sob,no dizziness Laboratory Last Values WBC 6.3 K/mm3 (4.0-10.0) D 04/05/18 06:00 RBC 4.70 M/mm3 (4.00-5.60) 04/05/18 06:00 Hgb 14.6 GM/dL (11.7-16.9) 04/05/18 06:00 Hct 42.8 % (35.4-49) 04/05/18 06:00 MCV 90.9 fl (80-96) 04/05/18 06:00 MCH 31.0 pg (25.7-33.7) 04/05/18 06:00 MCHC 34.1 g/dl (32.0-35.9) 04/05/18 06:00 RDW 13.8 % (11.9-15.9) 04/05/18 06:00 Plt Count 253 K/MM3 (134-434) 04/05/18 06:00 MPV 10.4 fl (7.5-11.1) D 04/05/18 06:00 Sodium 136 mmol/L (136-145) 04/05/18 06:00 Potassium 4.0 mmol/L (3.5-5.1) 04/05/18 06:00 Chloride 100 mmol/L (98-107) 04/05/18 06:00 Carbon Dioxide 29 mmol/L (21-32) D 04/05/18 06:00 Anion Gap 7 (8-16) L 04/05/18 06:00 BUN 16 mg/dL (7-18) 04/05/18 06:00 Creatinine 0.9 mg/dL (0.7-1.3) D 04/05/18 06:00 Creat Clearance w eGFR > 60 (>60) 04/05/18 06:00 Random Glucose 130 mg/dL (74-106) H 04/05/18 06:00 Calcium 9.0 mg/dL (8.5-10.1) 04/05/18 06:00 Total Bilirubin 0.3 mg/dL (0.2-1.0) D 04/05/18 06:00 AST 19 U/L (15-37) D 04/05/18 06:00 ALT 28 U/L (12-78) 04/05/18 06:00 Alkaline Phosphatase 68 U/L (45-117) 04/05/18 06:00 Total Protein 7.3 g/dl (6.4-8.2) 04/05/18 06:00 Albumin 3.8 g/dl (3.4-5.0) 04/05/18 06:00 Urine Color Yellow 04/04/18 17:26 Urine Appearance Clear 04/04/18 17:26 Urine pH 6.0 (5.0-8.0) 04/04/18 17:26 Ur Specific [place] 1.014 (1.001-1.035) 04/04/18 17:26 Urine Protein Negative (NEGATIVE) 04/04/18 17:26 Urine Glucose (UA) Negative (NEGATIVE) 04/04/18 17:26 Urine Ketones Negative (NEGATIVE) 04/04/18 17:26 Urine Blood Negative (NEGATIVE) 04/04/18 17:26 Urine Nitrite Negative (NEGATIVE) 04/04/18 17:26 Urine Bilirubin Negative (<2.0 mg/dL) 04/04/18 17:26 Urine Urobilinogen Negative mg/dL (0.2-1.0) 04/04/18 17:26 Ur Leukocyte Esterase Negative (NEGATIVE) 04/04/18 17:26 RPR Titer Nonreactive (NONREACTIVE) 04/05/18 06:00 HIV 1&2 Antibody Screen Negative 04/04/18 15:00 HIV P24 Antigen Negative 04/04/18 15:00 Assessment: 04/05/18 13:41 withdrawal symptom Plan: continue detox,bgm monitoring,fasting glucose in am
[2018-04-05] MEDS: BACITRACIN 0.9 GM PACKET TP SCH ×2 (15:02→22:44)
[2018-04-05] MEDS ORDERED: diphenhydrAMINE HCL 25 MG CAPSULE (FP) PO ONE (21:07)
[2018-04-05] MEDS: diphenhydrAMINE HCL 50 MG CAPSULE PO SCH (22:44)
[2018-04-05] MEDS: THIAMINE HCL 100 MG TABLET (FP) PO SCH (22:46)
[2018-04-06] MEDS: CEPHALEXIN MONOHYDRATE 500 MG CAPSULE (UD) PO SCH ×2 (06:41→11:11)
[2018-04-06 07:03] VITALS: BP 100/62; PULSE 60; TEMP 96.6
[2018-04-06] MEDS ORDERED: METHADONE HCL 5 MG TABLET (FOR DETOX USE ONLY) PO ONE (10:00)
[2018-04-06] MEDS: PRENATAL VITAMINS W/ FOLIC ACID TABLET (FP) PO SCH (10:13)
[2018-04-06] MEDS: BACITRACIN 0.9 GM PACKET TP SCH (10:13)
[2018-04-06] MEDS: SULFAMETHOXAZOLE/TRIMETHOPRIM 800MG/160MG D.S. TABLET PO SCH (10:13)
[2018-04-06] MEDS: diazePAM 5 MG TABLET PO PRN (10:13)
--- NOTE | 2018-04-06 13:31 | PN ---
BHS COWS - Scale Resting Pulse: 0= MD 80 or Below Sweatin= Chills/Flushing Restless Observation: 3= Extraneous Movement Pupil Size: 1= Pupils >than Normal Bone or Joint Aches: 2= Severe Diffuse Aches Runny Nose/ Eye Tearin= Runny Nose/Eyes GI Upset > 30mins: 2= Nausea/Diarrhea Tremor Observation of Outstretched Hands: 2= Slight Tremor Visible Yawning Observation: 1= 1-2x During Session Anxiety or Irritability: 1=Feels Anxious/Irritable Goose Flesh Skin: 0=Smooth Skin COWS Score: 15 BHS Progress Note (SOAP) Subjective: alert,irritable,anxious,interrupted sleep,pain in the body and back Objective: 04/06/18 13:29 Vital Signs Temperature 96.6 F L 04/06/18 10:46 Pulse Rate 60 04/06/18 10:46 Respiratory Rate 18 04/06/18 10:46 Blood Pressure 100/62 04/06/18 10:46 O2 Sat by Pulse Oximetry (%) Assessment: 04/06/18 13:30 withdrawal symptom Plan: continue detox
--- NOTE | 2018-04-06 13:33 | PN ---
[facility] Progress Note Note: patient did not want to completed treatment,all attempts to convince patient to stay with no avail seen by counselor,signed relase ama,
--- NOTE | 2018-04-06 13:36 | DS ---
[facility] Detox Discharge Summary Admission Date: 04/04/18 Discharge Date: 04/06/18 - History Present History: Cocaine Dependence, Opioid Dependence Additional Comments: patient did not want to complete treatment,all attempts to convince patient to stay with no avail seen by counselor,signed release ama Pertinent Past History: cellulitis history of abscess of scrotal - Physical Exam Results Vital Signs: Vital Signs Temperature 96.6 F L 04/06/18 10:46 Pulse Rate 60 04/06/18 10:46 Respiratory Rate 18 04/06/18 10:46 Blood Pressure 100/62 04/06/18 10:46 O2 Sat by Pulse Oximetry (%) Pertinent Admission Physical Exam Findings: withdrawal signs and symptom Vital Signs Temperature 96.6 F L 04/06/18 10:46 Pulse Rate 60 04/06/18 10:46 Respiratory Rate 18 04/06/18 10:46 Blood Pressure 100/62 04/06/18 10:46 O2 Sat by Pulse Oximetry (%) Laboratory Last Values WBC 6.3 K/mm3 (4.0-10.0) D 04/05/18 06:00 RBC 4.70 M/mm3 (4.00-5.60) 04/05/18 06:00 Hgb 14.6 GM/dL (11.7-16.9) 04/05/18 06:00 Hct 42.8 % (35.4-49) 04/05/18 06:00 MCV 90.9 fl (80-96) 04/05/18 06:00 MCH 31.0 pg (25.7-33.7) 04/05/18 06:00 MCHC 34.1 g/dl (32.0-35.9) 04/05/18 06:00 RDW 13.8 % (11.9-15.9) 04/05/18 06:00 Plt Count 253 K/MM3 (134-434) 04/05/18 06:00 MPV 10.4 fl (7.5-11.1) D 04/05/18 06:00 Sodium 136 mmol/L (136-145) 04/05/18 06:00 Potassium 4.0 mmol/L (3.5-5.1) 04/05/18 06:00 Chloride 100 mmol/L (98-107) 04/05/18 06:00 Carbon Dioxide 29 mmol/L (21-32) D 04/05/18 06:00 Anion Gap 7 (8-16) L 04/05/18 06:00 BUN 16 mg/dL (7-18) 04/05/18 06:00 Creatinine 0.9 mg/dL (0.7-1.3) D 04/05/18 06:00 Creat Clearance w eGFR > 60 (>60) 04/05/18 06:00 POC Glucometer 85 UNITS (80-120) 04/06/18 06:48 Random Glucose 130 mg/dL (74-106) H 04/05/18 06:00 Fasting Glucose 79 mg/dL (70-105) 04/06/18 07:55 Calcium 9.0 mg/dL (8.5-10.1) 04/05/18 06:00 Total Bilirubin 0.3 mg/dL (0.2-1.0) D 04/05/18 06:00 AST 19 U/L (15-37) D 04/05/18 06:00 ALT 28 U/L (12-78) 04/05/18 06:00 Alkaline Phosphatase 68 U/L (45-117) 04/05/18 06:00 Total Protein 7.3 g/dl (6.4-8.2) 04/05/18 06:00 Albumin 3.8 g/dl (3.4-5.0) 04/05/18 06:00 Urine Color Yellow 04/04/18 17:26 Urine Appearance Clear 04/04/18 17:26 Urine pH 6.0 (5.0-8.0) 04/04/18 17:26 Ur Specific [place] 1.014 (1.001-1.035) 04/04/18 17:26 Urine Protein Negative (NEGATIVE) 04/04/18 17:26 Urine Glucose (UA) Negative (NEGATIVE) 04/04/18 17:26 Urine Ketones Negative (NEGATIVE) 04/04/18 17:26 Urine Blood Negative (NEGATIVE) 04/04/18 17:26 Urine Nitrite Negative (NEGATIVE) 04/04/18 17:26 Urine Bilirubin Negative (<2.0 mg/dL) 04/04/18 17:26 Urine Urobilinogen Negative mg/dL (0.2-1.0) 04/04/18 17:26 Ur Leukocyte Esterase Negative (NEGATIVE) 04/04/18 17:26 RPR Titer Nonreactive (NONREACTIVE) 04/05/18 06:00 HIV 1&2 Antibody Screen Negative 04/04/18 15:00 HIV P24 Antigen Negative 04/04/18 15:00 - Medication Discharge Medications: Ambulatory Orders Diphenhydramine [Benadryl Capsule -] 100 mg PO HS #14 capsule 04/04/18 - Diagnosis (1) Opioid dependence with withdrawal Current Visit: No Status: Acute (2) Cannabis dependence Current Visit: No Status: Chronic (3) PCP dependence. Current Visit: No Status: Chronic (4) Abscess of scrotal wall Current Visit: No Status: Acute (5) Cellulitis Current Visit: No Status: Acute Qualifiers: Site of cellulitis: extremity Site of cellulitis of extremity: lower extremity Laterality: left Qualified Code(s): L03.116 - Cellulitis of left lower limb (6) Weight loss counseling, encounter for Current Visit: Yes Status: Acute - AMA Did Patient Leave Against Medical Advice: Yes
[2018-04-07] MEDS ORDERED: METHADONE HCL 5 MG TABLET (FOR DETOX USE ONLY) PO ONE (10:00)
[2018-04-08] MEDS ORDERED: METHADONE HCL 10 MG TABLET (FOR DETOX USE ONLY) PO ONE (10:00)
[2018-04-09] MEDS ORDERED: METHADONE HCL 5 MG TABLET (FOR DETOX USE ONLY) PO ONE (06:00)
== END 2018-04-06 13:50 | disposition left against medical advice (07) | DRG 770 ==
LOC: YASAS 10:27 → Y6N 13:35
PROVIDERS: ADMIT Surgery; ATTEND Surgery
PROC: HZ2ZZZZ Detoxification Services for Substance Abuse Treatment (ICD-10-PCS; principal; 2018-04-04)
DX: F11.23 Opioid dependence with withdrawal (principal); F12.20 Cannabis dependence, uncomplicated; F16.20 Hallucinogen dependence, uncomplicated; F17.210 Nicotine dependence, cigarettes, uncomplicated; F19.24 Other psychoactive substance dependence with psychoactive substance-induced mood disorder; N49.2 Inflammatory disorders of scrotum; Z71.3 Dietary counseling and surveillance; Z68.24 Body mass index [BMI] 24.0-24.9, adult
CPT/HCPCS: 36415; 80053; 81003; 82947; 82962; 85027; 86593; 87389; 93005; 93010

== ENCOUNTER 2018-05-21 19:16 | Inpatient (IN) | payer OTHER ==
[2018-05-21 19:46] VITALS: BMI 24.6
--- NOTE | 2018-05-21 21:38 | HP ---
COWS - Scale Resting Pulse: 0= [place] 80 or Below Sweatin= Beads of Sweat on Face Restless Observation: 3= Extraneous Movement Pupil Size: 1= Pupils >than Normal Bone or Joint Aches: 1= Mild Discomfort Runny Nose/ Eye Tearin= Runny Nose/Eyes GI Upset > 30mins: 3= Vomiting/Diarrhea Tremor Observation: 2= Slight Tremor Visible Yawning Observation: 1= 1-2x During Session Anxiety or Irritability: 2=Irritable/Anxious Goose Flesh Skin: 3=Piloerection COWS Score: 21 Admission ROS S - HPI Chief Complaint: opioid withdrawal symptoms Allergies/Adverse Reactions: Allergies Allergy/AdvReac Type Severity Reaction Status Date / Time No Known Allergies Allergy Verified 05/21/18 21:52 History of Present Illness: 43 yo male with hx of nicotine, heroin ( paranasal), PCP, and cannabis dependence is here seeking detox. Denies any medical problems. Reports hx of bipolar, depression and anxiety. Denies suicidal / homicidal ideation, denies hx of suicide attempt. Denies hx of seizures, and reports frequent blackouts. Reports OD x 4 with last episode 05/07/18. Exam Limitations: No Limitations - Ebola screening Have you been sick,other than usual withdrawal symptoms: No - Review of Systems Constitutional: Chills, Diaphoresis, Loss of Appetite, Changes in sleep, Unintentional Wgt. Loss EENT: reports: No Symptoms Reported Respiratory: reports: No Symptoms reported Cardiac: reports: No Symptoms Reported GI: reports: Diarrhea, Nausea, Poor Appetite, Poor Fluid Intake, Vomiting : reports: No Symptoms Reported Musculoskeletal: reports: Back Pain, Joint Pain Integumentary: reports: Pruritus Neuro: reports: Headache Endocrine: reports: Increased Thirst Hematology: reports: No Symptoms Reported Psychiatric: reports: Orientated x3, Anxious Other Systems: Reviewed and Negative Patient History - Patient Medical History Hx Anemia: No Hx Asthma: No Hx Chronic Obstructive Pulmonary Disease (COPD): No Hx Cancer: No Hx Cardiac Disorders: No Hx Congestive Heart Failure: No Hx Hypertension: No Hx Hypercholesterolemia: No Hx Pacemaker: No HX Cerebrovascular Accident: No Hx Seizures: No Hx Dementia: No Hx Diabetes: No Hx Gastrointestinal Disorders: No Hx Liver Disease: No Hx Genitourinary Disorders: No Hx Sexually Transmitted Disorders: No Hx Renal Disease (ESRD): No Hx Thyroid Disease: No Hx Human Immunodeficiency Virus (HIV): No (last 02/13 negative) Hx Hepatitis C: No Hx Depression: Yes Hx Suicide Attempt: No Hx Bipolar Disorder: Yes (seroquel, celexa, trazodone, rispedal as per hx , non compliant ) Hx Schizophrenia: No - Patient Surgical History Past Surgical History: No Hx Neurologic Surgery: No Hx Cataract Extraction: No Hx Cardiac Surgery: No Hx Lung Surgery: No Hx Breast Surgery: No Hx Breast Biopsy: No Hx Abdominal Surgery: No Hx Appendectomy: No Hx Cholecystectomy: No Hx Genitourinary Surgery: No Hx Section: No Hx Orthopedic Surgery: No Anesthesia Reaction: No - PPD History Documented Results: Negative w/proof Implanted On Prior R Admission?: No Date: 04/06/18 PPD to be Administered?: No - Smoking Cessation Smoking history: Current every day smoker Have you smoked in the past 12 months: Yes Aproximately how many cigarettes per day: 2 Cigars Per Day: 0 Hx Chewing Tobacco Use: No Initiated information on smoking cessation: Yes 'Breaking Loose' booklet given: 05/21/18 - Substance & Tx. History Hx Alcohol Use: Yes Hx Substance Use: Yes Substance Use Type: Heroin, Marijuana Hx Substance Use Treatment: Yes (04/04/18 - 04/06/18 [facility] left AMA ) - Substances Abused Heroin Route: Inhalation Frequency: Daily Amount used: 3 bags Age of first use: 23 Date of Last Use: 05/21/18 Marijuana/Hashish Route: Smoking Frequency: Daily Amount used: 1 joint Age of first use: 15 Date of Last Use: 05/14/18 PCP Route: Smoking Frequency: 1-2 times per week Amount used: 1 bag Age of first use: 19 Date of Last Use: 05/07/18 Family Disease History - Family Disease History Family Disease History: Diabetes: Grandparent, Heart Disease: Grandparent, Other : Father (HIV/AIDS , iv drug user ) Admission Physical Exam BHS - Vital Signs Vital Signs: Vital Signs - 24 hr 05/21/18 19:45 Temperature 96.5 F L Pulse Rate 71 Respiratory 18 Rate Blood Pressure 112/71 - Physical General Appearance: Yes: Moderate Distress, Thin, Sweating, Anxious HEENTM: Yes: EOMI, Hearing grossly Normal, Normal ENT Inspection, Normocephalic , Normal Voice, TALIB, Pharynx Normal, Tm's normal Respiratory: Yes: Chest Non-Tender, Lungs Clear, Normal Breath Sounds, No Respiratory Distress, No Accessory Muscle Use Neck: Yes: Within Normal Limits Breast: Yes: Breast Exam Deferred Cardiology: Yes: Regular Rhythm, Regular Rate Abdominal: Yes: Normal Bowel Sounds, Non Tender, Flat, Soft Genitourinary: Yes: Within Normal Limits Back: Yes: Normal Inspection Musculoskeletal: Yes: full range of Motion, Gait Steady, Pelvis Stable Extremities: Yes: Normal Capillary Refill, Normal Inspection, Normal Range of Motion, Non-Tender Neurological: Yes: tribunal member II-XII NML intact, Fully Oriented, Alert, Motor Strength 5/5, Depressed Affect, Other (restless) Integumentary: Yes: Normal Color, Warm, Diaphoresis, Other (abression on biateral lower extremities secondary to patient scratching the area, no infection) Lymphatic: Yes: Within Normal Limits - Diagnostic (1) Anxious mood Current Visit: Yes Status: Acute (2) Abrasions of multiple sites Current Visit: No Status: Acute (3) Opioid dependence with withdrawal Current Visit: Yes Status: Acute (4) Cannabis dependence Current Visit: Yes Status: Chronic (5) Nicotine dependence Current Visit: Yes Status: Chronic Qualifiers: Nicotine product type: cigarettes (6) PCP dependence. Current Visit: Yes Status: Chronic Cleared for Admission [facility] - Detox or Rehab [facility] Level of Care: Medically Managed Detox Regimen/Protocol: Methadone [facility] Breath Alcohol Content Breath Alcohol Content: 0 Urine Drug Screen - Results Drug Screen Negative: No Urine Drug Screen Results: THC-Marijuana, OPI-Opiates, PCP-Phencyclidine
[2018-05-21] MEDS ORDERED: hydrOXYzine PAMOATE 50 MG CAPSULE (FP) PO PRN (21:45)
[2018-05-21] MEDS ORDERED: NICOTINE POLACRILEX 2 MG GUM BC PRN (21:45)
[2018-05-21] MEDS ORDERED: P-EPHED 60MG/TRIPROLIDI 2.5MG TABLET PO PRN (21:45)
[2018-05-21] MEDS ORDERED: IBUPROFEN 400 MG TABLET (FP) PO PRN (21:45)
[2018-05-21] MEDS ORDERED: MENTHOL/PHENOL 1 EACH UD MM PRN (21:45)
[2018-05-21] MEDS ORDERED: MAG HYDROX/AL HYDROX/SIMETH 30 ML UNIT-DOSE CUP PO PRN (21:45)
[2018-05-21] MEDS ORDERED: MAGNESIUM HYDROX 2400MG/30ML ORAL SUSPENSION 30 ML CUP PO PRN (21:45)
[2018-05-21] MEDS ORDERED: LOPERAMIDE HCL 2 MG CAPSULE PO PRN (21:45)
[2018-05-21] MEDS ORDERED: guaiFENesin/D-METHORPHAN HB 10 ML UNIT-DOSE CUPS PO PRN (21:45)
[2018-05-21] MEDS ORDERED: ACETAMINOPHEN 325 MG TABLET (FP) PO PRN (21:45)
[2018-05-21] MEDS ORDERED: MAGNESIUM CITRATE 300 ML BOTTLE PO PRN (21:45)
[2018-05-21] MEDS ORDERED: MELATONIN 5 MG TABLETS PO PRN (22:00)
[2018-05-21] MEDS ORDERED: METHADONE HCL 10 MG TABLET (FOR DETOX USE ONLY) PO ONE ×2 (22:00→23:00)
[2018-05-21] MEDS: THIAMINE HCL 100 MG TABLET (FP) PO SCH (23:32)
[2018-05-21] MEDS: BACITRACIN 0.9 GM PACKET TP SCH (23:32)
[2018-05-22 00:14] LABS: URINE APPEARANCE CLEAR; URINE BILIRUBIN NEGATIVE (<2.0 mg/dL); URINE COLOR AMBER; URINE GLUCOSE (UA) NEGATIVE (NEGATIVE); URINE KETONE NEGATIVE (NEGATIVE); URINE LEUK ESTERASE NEGATIVE (NEGATIVE); URINE NITRITE NEGATIVE (NEGATIVE); URINE UROBILINOGEN NEGATIVE mg/dL (0.2-1.0)
[2018-05-22 00:19] LABS: URINE PROTEIN 1+ (NEGATIVE)
[2018-05-22 00:23] LABS: EPI CELLS RARE /HPF (FEW); URINE HYALINE CAST 2 /lpf; URINE MUCUS MANY
[2018-05-22] MEDS: diazePAM 5 MG TABLET PO PRN (07:32)
--- NOTE | 2018-05-22 09:09 | CONSULT ---
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 Denies any medical problems. Reports hx of bipolar, depression and anxiety. Substance Abuse History: Smoking history: Current every day smoker. Have you smoked in the past 12 months: Yes. Aproximately how many cigarettes per day: 2. Cigars Per Day: 0. Hx Chewing Tobacco Use: No. Initiated information on smoking cessation: Yes. 'Breaking Loose' booklet given: 05/21/18. - Substance & Tx. History. Hx Alcohol Use: Yes. Hx Substance Use: Yes. Substance Use Type : Heroin, Marijuana. Hx Substance Use Treatment: Yes (04/04/18 - 04/06/18 [facility] left AMA ). - Substances Abused. Heroin. Route: Inhalation. Frequency: Daily. Amount used: 3 bags. Age of first use: 23. Date of Last Use: . Marijuana/Hashish. Route: Smoking. Frequency: Daily. Amount used: 1 joint. Age of first use: 15. Date of Last Use: 05/14/18. PCP. Route: Smoking. Frequency: 1-2 times per week. Amount used: 1 bag. Age of first use : 19. Date of Last Use: 05/07/18 Medical History: Patient denies significant medical issues Psychiatric History: Patient reports history of depression and anxiety, as per chart carries Bipolar Disorder, reports insomnia, [id number] with medications. Denies suicidal and homicidal history Physical/Sexual Abuse/Trauma History: Denies Additional Comment: Remeron 15mg po qhs Mental Status Exam - Mental Status Exam Alert and Oriented to: Person Cognitive Function: Fair Patient Appearance: Unkempt Mood: Anxious, Irritable Affect: Labile Patient Behavior: Cooperative Speech Pattern: Excessive Voice Loudness: Normal Thought Process: Goal Oriented Thought Disorder: Being Controlled Hallucinations: Denies Suicidal Ideation: Denies Homicidal Ideation: Denies Insight/Judgement: Fair Sleep: Difficulty falling asleep Appetite: Weight loss Muscle strength/Tone: Normal Gait/Station: Normal Additional Comments: Remeron 15mg po qhs Psychiatric Findings - Problem List ([place] 1, 2,3) (1) Opioid dependence with withdrawal Current Visit: Yes Status: Acute (2) Cannabis dependence Current Visit: Yes Status: Chronic (3) Nicotine dependence Current Visit: Yes Status: Chronic Qualifiers: Nicotine product type: cigarettes (4) PCP dependence. Current Visit: Yes Status: Chronic (5) Alcohol dependence with uncomplicated withdrawal Current Visit: No Status: Acute (6) Cellulitis Current Visit: No Status: Acute Qualifiers: Site of cellulitis: extremity Site of cellulitis of extremity: lower extremity Laterality: left Qualified Code(s): L03.116 - Cellulitis of left lower limb (7) Dehydration Current Visit: No Status: Acute (8) Drug-induced mood disorder Current Visit: No Status: Acute (9) Heroin overdose Current Visit: No Status: Acute Qualifiers: Encounter type: initial encounter Injury intent: accidental or unintentional Qualified Code(s): T40.1X1A - Poisoning by heroin, accidental ( unintentional), initial encounter (10) Opioid dependence Current Visit: No Status: Chronic - Initial Treatment Plan Initial Treatment Plan: Remeron 15mg po qhs
[2018-05-22] MEDS ORDERED: METHADONE HCL 10 MG TABLET (FOR DETOX USE ONLY) PO ONE (10:00)
[2018-05-22 10:07] LABS: CHLORIDE 102 mmol/L (98-107); POTASSIUM 3.9 mmol/L (3.5-5.1); SODIUM 136 mmol/L (136-145)
--- NOTE | 2018-05-22 10:08 | EKG ---
Test Reason : Blood Pressure : / mmHG Vent. Rate : 096 BPM Atrial Rate : 096 BPM P-R Int : 144 ms QRS Dur : 076 ms QT Int : 326 ms P-R-T Axes : 064 066 062 degrees QTc Int : 411 ms NORMAL SINUS RHYTHM NORMAL ECG WHEN COMPARED WITH ECG OF 04-APR-2018 14:08, NO SIGNIFICANT CHANGE WAS FOUND Confirmed by JACKY REYNOLDS MD ([id number]) on 05/22/2018 10:08:04 AM Referred By: Confirmed By:JACKY REYNOLDS MD
[2018-05-22 10:09] LABS: MCH 31.3 pg (25.7-33.7); MCHC 34.2 g/dl (32.0-35.9); MEAN CELL VOLUME 91.5 fl (80-96); MEAN PLT VOLUME 10.1 fl (7.5-11.1); PLATELET COUNT 225 K/MM3 (134-434); RBC 4.81 M/mm3 (4.00-5.60); RDW 14.2 % (11.9-15.9)
[2018-05-22] MEDS: PRENATAL VITAMINS W/ FOLIC ACID TABLET (FP) PO SCH (10:22)
[2018-05-22] MEDS: BACITRACIN 0.9 GM PACKET TP SCH ×2 (10:23→22:33)
[2018-05-22 10:32] LABS: ALK PHOS 72 U/L (45-117); ANION GAP 9 (8-16); BILIRUBIN,TOTAL 0.3 mg/dL (0.2-1.0); BLOOD UREA NITROGEN 16 mg/dL (7-18); CO2 25 mmol/L (21-32); CREATININE 1.1 mg/dL (0.7-1.3); GLUCOSE,RANDOM 141 mg/dL (74-106); SGOT/AST 23 U/L (15-37); SGPT/ALT 28 U/L (12-78); TOT PROT 7.3 g/dl (6.4-8.2)
--- NOTE | 2018-05-22 11:29 | PN ---
BHS COWS - Scale Resting Pulse: 0= [place] 80 or Below Sweatin= Chills/Flushing Restless Observation: 1= Difficult to Sit Still Pupil Size: 1= Pupils >than Normal Bone or Joint Aches: 2= Severe Diffuse Aches Runny Nose/ Eye Tearin= Runny Nose/Eyes GI Upset > 30mins: 2= Nausea/Diarrhea Tremor Observation of Outstretched Hands: 2= Slight Tremor Visible Yawning Observation: 1= 1-2x During Session Anxiety or Irritability: 2=Irritable/Anxious Goose Flesh Skin: 3=Piloerection COWS Score: 17 S Progress Note (SOAP) Subjective: muscle ache trouble sleep at night sweat tremor joints pain restlessness Objective: 05/22/18 11:31 Vital Signs Temperature 97.5 F L 05/22/18 07:31 Pulse Rate 68 05/22/18 07:31 Respiratory Rate 18 05/22/18 07:31 Blood Pressure 135/74 05/22/18 07:31 O2 Sat by Pulse Oximetry (%) Laboratory Last Values WBC 8.0 K/mm3 (4.0-10.0) 05/22/18 07:00 RBC 4.81 M/mm3 (4.00-5.60) 05/22/18 07:00 Hgb 15.0 GM/dL (11.7-16.9) 05/22/18 07:00 Hct 44.0 % (35.4-49) 05/22/18 07:00 MCV 91.5 fl (80-96) 05/22/18 07:00 MCH 31.3 pg (25.7-33.7) 05/22/18 07:00 MCHC 34.2 g/dl (32.0-35.9) 05/22/18 07:00 RDW 14.2 % (11.9-15.9) 05/22/18 07:00 Plt Count 225 K/MM3 (134-434) 05/22/18 07:00 MPV 10.1 fl (7.5-11.1) 05/22/18 07:00 Sodium 136 mmol/L (136-145) 05/22/18 07:00 Potassium 3.9 mmol/L (3.5-5.1) 05/22/18 07:00 Chloride 102 mmol/L (98-107) 05/22/18 07:00 Carbon Dioxide 25 mmol/L (21-32) 05/22/18 07:00 Anion Gap 9 (8-16) 05/22/18 07:00 BUN 16 mg/dL (7-18) 05/22/18 07:00 Creatinine 1.1 mg/dL (0.7-1.3) 05/22/18 07:00 Creat Clearance w eGFR > 60 (>60) 05/22/18 07:00 Random Glucose 141 mg/dL (74-106) H 05/22/18 07:00 Calcium 9.0 mg/dL (8.5-10.1) 05/22/18 07:00 Total Bilirubin 0.3 mg/dL (0.2-1.0) 05/22/18 07:00 AST 23 U/L (15-37) D 05/22/18 07:00 ALT 28 U/L (12-78) 05/22/18 07:00 Alkaline Phosphatase 72 U/L (45-117) 05/22/18 07:00 Total Protein 7.3 g/dl (6.4-8.2) 05/22/18 07:00 Albumin 4.0 g/dl (3.4-5.0) 05/22/18 07:00 Urine Color [place] 05/21/18 20:12 Urine Appearance Clear 05/21/18 20:12 Urine pH 6.0 (5.0-8.0) 05/21/18 20:12 Ur Specific [place] 1.034 (1.001-1.035) 05/21/18 20:12 Urine Protein 1+ (NEGATIVE) H 05/21/18 20:12 Urine Glucose (UA) Negative (NEGATIVE) 05/21/18 20:12 Urine Ketones Negative (NEGATIVE) 05/21/18 20:12 Urine Blood Negative (NEGATIVE) 05/21/18 20:12 Urine Nitrite Negative (NEGATIVE) 05/21/18 20:12 Urine Bilirubin Negative (<2.0 mg/dL) 05/21/18 20:12 Urine Urobilinogen Negative mg/dL (0.2-1.0) 05/21/18 20:12 Ur Leukocyte Esterase Negative (NEGATIVE) 05/21/18 20:12 Urine WBC (Auto) 1 /hpf (3-5) 05/21/18 20:12 Urine RBC (Auto) 4 /hpf (0-3) 05/21/18 20:12 Ur Epithelial Cells Rare /HPF (FEW) 05/21/18 20:12 Hyaline Casts 2 /lpf 05/21/18 20:12 Urine Mucus Many 05/21/18 20:12 RPR Titer Nonreactive (NONREACTIVE) 05/22/18 07:00 HIV 1&2 Antibody Screen Negative 05/22/18 07:00 HIV P24 Antigen Negative 05/22/18 07:00 lab noted Assessment: 05/22/18 11:31 withdrawal sx Plan: continue detox
[2018-05-22] MEDS ORDERED: MIRTAZAPINE 15 MG TABLET (FP) PO SCH (22:00)
[2018-05-22] MEDS: THIAMINE HCL 100 MG TABLET (FP) PO SCH (22:33)
[2018-05-22] MEDS: MIRTAZAPINE 15 MG TABLET (FP) PO SCH (22:33)
--- NOTE | 2018-05-23 09:13 | PN ---
BHS COWS - Scale Resting Pulse: 0= [place] 80 or Below Sweatin= Chills/Flushing Restless Observation: 1= Difficult to Sit Still Pupil Size: 1= Pupils >than Normal Bone or Joint Aches: 2= Severe Diffuse Aches Runny Nose/ Eye Tearin= Nasal Congestion GI Upset > 30mins: 2= Nausea/Diarrhea Tremor Observation of Outstretched Hands: 2= Slight Tremor Visible Yawning Observation: 2= >3x During Session Anxiety or Irritability: 2=Irritable/Anxious Goose Flesh Skin: 0=Smooth Skin COWS Score: 14 BHS Progress Note (SOAP) Subjective: muscle cramp jonts paint body ache gi distress sweat tremor restlessness denies dizziness social with peers in day room Objective: 05/23/18 09:15 Vital Signs Temperature 97.2 F L 05/23/18 07:32 Pulse Rate 52 L 05/23/18 07:32 Respiratory Rate 18 05/23/18 07:32 Blood Pressure 89/63 05/23/18 07:32 O2 Sat by Pulse Oximetry (%) Laboratory Last Values WBC 8.0 K/mm3 (4.0-10.0) 05/22/18 07:00 RBC 4.81 M/mm3 (4.00-5.60) 05/22/18 07:00 Hgb 15.0 GM/dL (11.7-16.9) 05/22/18 07:00 Hct 44.0 % (35.4-49) 05/22/18 07:00 MCV 91.5 fl (80-96) 05/22/18 07:00 MCH 31.3 pg (25.7-33.7) 05/22/18 07:00 MCHC 34.2 g/dl (32.0-35.9) 05/22/18 07:00 RDW 14.2 % (11.9-15.9) 05/22/18 07:00 Plt Count 225 K/MM3 (134-434) 05/22/18 07:00 MPV 10.1 fl (7.5-11.1) 05/22/18 07:00 Sodium 136 mmol/L (136-145) 05/22/18 07:00 Potassium 3.9 mmol/L (3.5-5.1) 05/22/18 07:00 Chloride 102 mmol/L (98-107) 05/22/18 07:00 Carbon Dioxide 25 mmol/L (21-32) 05/22/18 07:00 Anion Gap 9 (8-16) 05/22/18 07:00 BUN 16 mg/dL (7-18) 05/22/18 07:00 Creatinine 1.1 mg/dL (0.7-1.3) 05/22/18 07:00 Creat Clearance w eGFR > 60 (>60) 05/22/18 07:00 Random Glucose 141 mg/dL (74-106) H 05/22/18 07:00 Calcium 9.0 mg/dL (8.5-10.1) 05/22/18 07:00 Total Bilirubin 0.3 mg/dL (0.2-1.0) 05/22/18 07:00 AST 23 U/L (15-37) D 05/22/18 07:00 ALT 28 U/L (12-78) 05/22/18 07:00 Alkaline Phosphatase 72 U/L (45-117) 05/22/18 07:00 Total Protein 7.3 g/dl (6.4-8.2) 05/22/18 07:00 Albumin 4.0 g/dl (3.4-5.0) 05/22/18 07:00 Urine Color Nikia 05/21/18 20:12 Urine Appearance Clear 05/21/18 20:12 Urine pH 6.0 (5.0-8.0) 05/21/18 20:12 Ur Specific [place] 1.034 (1.001-1.035) 05/21/18 20:12 Urine Protein 1+ (NEGATIVE) H 05/21/18 20:12 Urine Glucose (UA) Negative (NEGATIVE) 05/21/18 20:12 Urine Ketones Negative (NEGATIVE) 05/21/18 20:12 Urine Blood Negative (NEGATIVE) 05/21/18 20:12 Urine Nitrite Negative (NEGATIVE) 05/21/18 20:12 Urine Bilirubin Negative (<2.0 mg/dL) 05/21/18 20:12 Urine Urobilinogen Negative mg/dL (0.2-1.0) 05/21/18 20:12 Ur Leukocyte Esterase Negative (NEGATIVE) 05/21/18 20:12 Urine WBC (Auto) 1 /hpf (3-5) 05/21/18 20:12 Urine RBC (Auto) 4 /hpf (0-3) 05/21/18 20:12 Ur Epithelial Cells Rare /HPF (FEW) 05/21/18 20:12 Hyaline Casts 2 /lpf 05/21/18 20:12 Urine Mucus Many 05/21/18 20:12 RPR Titer Nonreactive (NONREACTIVE) 05/22/18 07:00 HIV 1&2 Antibody Screen Negative 05/22/18 07:00 HIV P24 Antigen Negative 05/22/18 07:00 lab noted Assessment: 05/23/18 09:15 withdrawal sx Plan: continue detox health teaching on opiate based substance related complications
[2018-05-23] MEDS ORDERED: METHADONE HCL 5 MG TABLET (FOR DETOX USE ONLY) PO ONE (10:00)
[2018-05-23] MEDS: PRENATAL VITAMINS W/ FOLIC ACID TABLET (FP) PO SCH (11:10)
[2018-05-23] MEDS: BACITRACIN 0.9 GM PACKET TP SCH ×2 (11:11→22:03)
[2018-05-23] MEDS: THIAMINE HCL 100 MG TABLET (FP) PO SCH (22:02)
[2018-05-23] MEDS: diazePAM 5 MG TABLET PO PRN (22:03)
[2018-05-23] MEDS: MIRTAZAPINE 15 MG TABLET (FP) PO SCH (22:03)
[2018-05-24] MEDS ORDERED: METHADONE HCL 5 MG TABLET (FOR DETOX USE ONLY) PO ONE (10:00)
[2018-05-24] MEDS: BACITRACIN 0.9 GM PACKET TP SCH ×2 (12:25→22:09)
[2018-05-24] MEDS: PRENATAL VITAMINS W/ FOLIC ACID TABLET (FP) PO SCH (12:50)
--- NOTE | 2018-05-24 13:55 | PN ---
S Progress Note (SOAP) Subjective: pt without complaints Objective: 05/24/18 13:52 Laboratory Tests 05/21/18 05/22/18 05/22/18 20:12 07:00 07:00 WBC 8.0 RBC 4.81 Hgb 15.0 Hct 44.0 MCV 91.5 MCH 31.3 MCHC 34.2 RDW 14.2 Plt Count 225 MPV 10.1 Sodium 136 Potassium 3.9 Chloride 102 Carbon Dioxide 25 Anion Gap 9 BUN 16 Creatinine 1.1 Creat Clearance w eGFR > 60 Random Glucose 141 H Calcium 9.0 Total Bilirubin 0.3 AST 23 D ALT 28 Alkaline Phosphatase 72 Total Protein 7.3 Albumin 4.0 Urine Color Nikia Urine Appearance Clear Urine pH 6.0 Ur Specific [place] 1.034 Urine Protein 1+ H Urine Glucose (UA) Negative Urine Ketones Negative Urine Blood Negative Urine Nitrite Negative Urine Bilirubin Negative Urine Urobilinogen Negative Ur Leukocyte Esterase Negative Urine WBC (Auto) 1 Urine RBC (Auto) 4 Ur Epithelial Cells Rare Hyaline Casts 2 Urine Mucus Many RPR Titer HIV 1&2 Antibody Screen HIV P24 Antigen 05/22/18 05/22/18 07:00 07:00 WBC RBC Hgb Hct MCV MCH MCHC RDW Plt Count MPV Sodium Potassium Chloride Carbon Dioxide Anion Gap BUN Creatinine Creat Clearance w eGFR Random Glucose Calcium Total Bilirubin AST ALT Alkaline Phosphatase Total Protein Albumin Urine Color Urine Appearance Urine pH Ur Specific [place] Urine Protein Urine Glucose (UA) Urine Ketones Urine Blood Urine Nitrite Urine Bilirubin Urine Urobilinogen Ur Leukocyte Esterase Urine WBC (Auto) Urine RBC (Auto) Ur Epithelial Cells Hyaline Casts Urine Mucus RPR Titer Nonreactive HIV 1&2 Antibody Screen Negative HIV P24 Antigen Negative Vital Signs - 24 hr 05/23/18 05/23/18 05/23/18 14:39 17:39 22:11 Temperature 97.9 F 98.1 F 97.7 F Pulse Rate 55 L 66 73 Respiratory 18 16 18 Rate Blood Pressure 108/53 96/51 117/64 05/24/18 05/24/18 05/24/18 00:30 03:30 05:56 Temperature 97.3 F L Pulse Rate 64 Respiratory 18 16 16 Rate Blood Pressure 92/55 05/24/18 05/24/18 09:35 13:46 Temperature 96.3 F L 97.7 F Pulse Rate 54 L 60 Respiratory 20 18 Rate Blood Pressure 110/80 93/56 pt lying in bed nl VS grossly nl PE Assessment: 05/24/18 13:54 Pt states leaving detox in a day or so- would like to be on suboxone
[2018-05-24] MEDS: MIRTAZAPINE 15 MG TABLET (FP) PO SCH (22:09)
[2018-05-24] MEDS: THIAMINE HCL 100 MG TABLET (FP) PO SCH (22:09)
[2018-05-25] MEDS ORDERED: METHADONE HCL 10 MG TABLET (FOR DETOX USE ONLY) PO ONE (10:00)
[2018-05-25 10:24] VITALS: BP 104/69; PULSE 55; TEMP 97.3
--- NOTE | 2018-05-25 12:37 | PN ---
S Progress Note (SOAP) Subjective: Malaise, anxiety and back pain Objective: 05/25/18 12:36 Vital Signs 05/25/18 05/25/18 06:00 10:23 Temperature 96.4 F L 97.3 F L Pulse Rate 61 55 L Respiratory 18 18 Rate Blood Pressure 100/56 104/69 Laboratory Last Values WBC 8.0 K/mm3 (4.0-10.0) 05/22/18 07:00 RBC 4.81 M/mm3 (4.00-5.60) 05/22/18 07:00 Hgb 15.0 GM/dL (11.7-16.9) 05/22/18 07:00 Hct 44.0 % (35.4-49) 05/22/18 07:00 MCV 91.5 fl (80-96) 05/22/18 07:00 MCH 31.3 pg (25.7-33.7) 05/22/18 07:00 MCHC 34.2 g/dl (32.0-35.9) 05/22/18 07:00 RDW 14.2 % (11.9-15.9) 05/22/18 07:00 Plt Count 225 K/MM3 (134-434) 05/22/18 07:00 MPV 10.1 fl (7.5-11.1) 05/22/18 07:00 Sodium 136 mmol/L (136-145) 05/22/18 07:00 Potassium 3.9 mmol/L (3.5-5.1) 05/22/18 07:00 Chloride 102 mmol/L (98-107) 05/22/18 07:00 Carbon Dioxide 25 mmol/L (21-32) 05/22/18 07:00 Anion Gap 9 (8-16) 05/22/18 07:00 BUN 16 mg/dL (7-18) 05/22/18 07:00 Creatinine 1.1 mg/dL (0.7-1.3) 05/22/18 07:00 Creat Clearance w eGFR > 60 (>60) 05/22/18 07:00 Random Glucose 141 mg/dL (74-106) H 05/22/18 07:00 Calcium 9.0 mg/dL (8.5-10.1) 05/22/18 07:00 Total Bilirubin 0.3 mg/dL (0.2-1.0) 05/22/18 07:00 AST 23 U/L (15-37) D 05/22/18 07:00 ALT 28 U/L (12-78) 05/22/18 07:00 Alkaline Phosphatase 72 U/L (45-117) 05/22/18 07:00 Total Protein 7.3 g/dl (6.4-8.2) 05/22/18 07:00 Albumin 4.0 g/dl (3.4-5.0) 05/22/18 07:00 Urine Color [place] 05/21/18 20:12 Urine Appearance Clear 05/21/18 20:12 Urine pH 6.0 (5.0-8.0) 05/21/18 20:12 Ur Specific [place] 1.034 (1.001-1.035) 05/21/18 20:12 Urine Protein 1+ (NEGATIVE) H 05/21/18 20:12 Urine Glucose (UA) Negative (NEGATIVE) 05/21/18 20:12 Urine Ketones Negative (NEGATIVE) 05/21/18 20:12 Urine Blood Negative (NEGATIVE) 05/21/18 20:12 Urine Nitrite Negative (NEGATIVE) 05/21/18 20:12 Urine Bilirubin Negative (<2.0 mg/dL) 05/21/18 20:12 Urine Urobilinogen Negative mg/dL (0.2-1.0) 05/21/18 20:12 Ur Leukocyte Esterase Negative (NEGATIVE) 05/21/18 20:12 Urine WBC (Auto) 1 /hpf (3-5) 05/21/18 20:12 Urine RBC (Auto) 4 /hpf (0-3) 05/21/18 20:12 Ur Epithelial Cells Rare /HPF (FEW) 05/21/18 20:12 Hyaline Casts 2 /lpf 05/21/18 20:12 Urine Mucus Many 05/21/18 20:12 RPR Titer Nonreactive (NONREACTIVE) 05/22/18 07:00 HIV 1&2 Antibody Screen Negative 05/22/18 07:00 HIV P24 Antigen Negative 05/22/18 07:00 Labs noted Assessment: 05/25/18 12:37 Withdrawal sx Plan: Continue detox
[2018-05-25] MEDS: PRENATAL VITAMINS W/ FOLIC ACID TABLET (FP) PO SCH (13:12)
[2018-05-25] MEDS: BACITRACIN 0.9 GM PACKET TP SCH (13:12)
--- NOTE | 2018-05-25 19:02 | DS ---
[facility] Detox Discharge Summary Admission Date: 05/21/18 Discharge Date: 05/25/18 - History Present History: Alcohol Dependence, Cannabis Dependence - Physical Exam Results Vital Signs: Vital Signs Temperature 97.3 F L 05/25/18 10:23 Pulse Rate 55 L 05/25/18 10:23 Respiratory Rate 18 05/25/18 10:23 Blood Pressure 104/69 05/25/18 10:23 O2 Sat by Pulse Oximetry (%) Pertinent Admission Physical Exam Findings: withdrawal sx Laboratory Last Values WBC 8.0 K/mm3 (4.0-10.0) 05/22/18 07:00 RBC 4.81 M/mm3 (4.00-5.60) 05/22/18 07:00 Hgb 15.0 GM/dL (11.7-16.9) 05/22/18 07:00 Hct 44.0 % (35.4-49) 05/22/18 07:00 MCV 91.5 fl (80-96) 05/22/18 07:00 MCH 31.3 pg (25.7-33.7) 05/22/18 07:00 MCHC 34.2 g/dl (32.0-35.9) 05/22/18 07:00 RDW 14.2 % (11.9-15.9) 05/22/18 07:00 Plt Count 225 K/MM3 (134-434) 05/22/18 07:00 MPV 10.1 fl (7.5-11.1) 05/22/18 07:00 Sodium 136 mmol/L (136-145) 05/22/18 07:00 Potassium 3.9 mmol/L (3.5-5.1) 05/22/18 07:00 Chloride 102 mmol/L (98-107) 05/22/18 07:00 Carbon Dioxide 25 mmol/L (21-32) 05/22/18 07:00 Anion Gap 9 (8-16) 05/22/18 07:00 BUN 16 mg/dL (7-18) 05/22/18 07:00 Creatinine 1.1 mg/dL (0.7-1.3) 05/22/18 07:00 Creat Clearance w eGFR > 60 (>60) 05/22/18 07:00 Random Glucose 141 mg/dL (74-106) H 05/22/18 07:00 Calcium 9.0 mg/dL (8.5-10.1) 05/22/18 07:00 Total Bilirubin 0.3 mg/dL (0.2-1.0) 05/22/18 07:00 AST 23 U/L (15-37) D 05/22/18 07:00 ALT 28 U/L (12-78) 05/22/18 07:00 Alkaline Phosphatase 72 U/L (45-117) 05/22/18 07:00 Total Protein 7.3 g/dl (6.4-8.2) 05/22/18 07:00 Albumin 4.0 g/dl (3.4-5.0) 05/22/18 07:00 Urine Color [place]ia 05/21/18 20:12 Urine Appearance Clear 05/21/18 20:12 Urine pH 6.0 (5.0-8.0) 05/21/18 20:12 Ur Specific [place] 1.034 (1.001-1.035) 05/21/18 20:12 Urine Protein 1+ (NEGATIVE) H 05/21/18 20:12 Urine Glucose (UA) Negative (NEGATIVE) 05/21/18 20:12 Urine Ketones Negative (NEGATIVE) 05/21/18 20:12 Urine Blood Negative (NEGATIVE) 05/21/18 20:12 Urine Nitrite Negative (NEGATIVE) 05/21/18 20:12 Urine Bilirubin Negative (<2.0 mg/dL) 05/21/18 20:12 Urine Urobilinogen Negative mg/dL (0.2-1.0) 05/21/18 20:12 Ur Leukocyte Esterase Negative (NEGATIVE) 05/21/18 20:12 Urine WBC (Auto) 1 /hpf (3-5) 05/21/18 20:12 Urine RBC (Auto) 4 /hpf (0-3) 05/21/18 20:12 Ur Epithelial Cells Rare /HPF (FEW) 05/21/18 20:12 Hyaline Casts 2 /lpf 05/21/18 20:12 Urine Mucus Many 05/21/18 20:12 RPR Titer Nonreactive (NONREACTIVE) 05/22/18 07:00 HIV 1&2 Antibody Screen Negative 05/22/18 07:00 HIV P24 Antigen Negative 05/22/18 07:00 - Medication Discharge Medications: Ambulatory Orders Mirtazapine [Remeron -] 15 mg PO HS #30 tablet 05/22/18 Mirtazapine [Remeron -] 15 mg PO HS #30 tablet 05/22/18 - Diagnosis (1) Opioid dependence with withdrawal Status: Acute (2) Cannabis dependence Status: Chronic (3) Nicotine dependence Status: Chronic Qualifiers: Nicotine product type: cigarettes - AMA Did Patient Leave Against Medical Advice: Yes
[2018-05-26] MEDS ORDERED: METHADONE HCL 5 MG TABLET (FOR DETOX USE ONLY) PO ONE (06:00)
== END 2018-05-25 13:33 | disposition left against medical advice (07) | DRG 770 ==
LOC: YASAS 19:16 → Y6N 21:09
PROVIDERS: ADMIT Surgery; ATTEND Surgery
PROC: HZ2ZZZZ Detoxification Services for Substance Abuse Treatment (ICD-10-PCS; principal; 2018-05-21)
DX: F11.23 Opioid dependence with withdrawal (principal); F10.230 Alcohol dependence with withdrawal, uncomplicated; F12.20 Cannabis dependence, uncomplicated; F16.20 Hallucinogen dependence, uncomplicated; F17.210 Nicotine dependence, cigarettes, uncomplicated; F19.24 Other psychoactive substance dependence with psychoactive substance-induced mood disorder; F31.9 Bipolar disorder, unspecified; E86.0 Dehydration; L03.116 Cellulitis of left lower limb; Z91.14 Patient's other noncompliance with medication regimen
CPT/HCPCS: 36415; 80053; 81003; 81015; 85027; 86593; 87389; 93005; 93010

== ENCOUNTER 2018-07-15 10:43 | Inpatient (IN) | payer OTHER ==
[2018-07-15 16:57] VITALS: BMI 26.6
[2018-07-15] MEDS ORDERED: MELATONIN 5 MG TABLETS PO PRN (22:00)
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
[2018-07-15] MEDS ORDERED: P-EPHED 60MG/TRIPROLIDI 2.5MG TABLET PO PRN (23:16)
[2018-07-15] MEDS ORDERED: LOPERAMIDE HCL 2 MG CAPSULE PO PRN (23:16)
[2018-07-15] MEDS ORDERED: MENTHOL/PHENOL 1 EACH UD MM PRN (23:16)
[2018-07-15] MEDS ORDERED: MAGNESIUM CITRATE 300 ML BOTTLE PO PRN (23:16)
[2018-07-15] MEDS ORDERED: guaiFENesin/D-METHORPHAN HB 10 ML UNIT-DOSE CUPS PO PRN (23:16)
[2018-07-15] MEDS ORDERED: ACETAMINOPHEN 325 MG TABLET (FP) PO PRN (23:16)
[2018-07-15] MEDS ORDERED: NICOTINE POLACRILEX 2 MG GUM BC PRN (23:16)
[2018-07-15] MEDS ORDERED: MAG HYDROX/AL HYDROX/SIMETH 30 ML UNIT-DOSE CUP PO PRN (23:16)
[2018-07-15] MEDS ORDERED: IBUPROFEN 400 MG TABLET (FP) PO PRN (23:16)
[2018-07-15] MEDS ORDERED: MAGNESIUM HYDROX 2400MG/30ML ORAL SUSPENSION 30 ML CUP PO PRN (23:16)
[2018-07-16] MEDS ORDERED: METHADONE HCL 10 MG TABLET (FOR DETOX USE ONLY) PO ONE ×3 (01:27→23:00)
[2018-07-16] MEDS: diazePAM 5 MG TABLET PO PRN ×2 (02:15→22:27)
[2018-07-16] MEDS ORDERED: BACITRACIN 15 GM TUBE TOPICAL OINTMENT TP SCH (10:00)
[2018-07-16 10:23] LABS: HEMATOCRIT 44.2 % (35.4-49); HEMOGLOBIN 14.9 GM/dL (11.7-16.9); MCH 31.1 pg (25.7-33.7); MCHC 33.7 g/dl (32.0-35.9); MEAN CELL VOLUME 92.2 fl (80-96); MEAN PLT VOLUME 9.3 fl (7.5-11.1); PLATELET COUNT 204 K/MM3 (134-434); RBC 4.79 M/mm3 (4.00-5.60); RDW 13.8 % (11.9-15.9); WHITE BLOOD COUNT 4.7 K/mm3 (4.0-10.0)
[2018-07-16 10:29] LABS: CHLORIDE 102 mmol/L (98-107); POTASSIUM 3.8 mmol/L (3.5-5.1); SODIUM 140 mmol/L (136-145)
[2018-07-16] MEDS: PRENATAL VITAMINS W/ FOLIC ACID TABLET (FP) PO SCH (10:40)
[2018-07-16] MEDS: NICOTINE 14 MG/24 HOURS TOPICAL PATCH TD SCH (10:40)
[2018-07-16 10:51] LABS: ALBUMIN 3.7 g/dl (3.4-5.0); ALK PHOS 77 U/L (45-117); ANION GAP 8 MMOL/L (8-16); BILIRUBIN,TOTAL 0.3 mg/dL (0.2-1); BLOOD UREA NITROGEN 14 mg/dL (7-18); CALCIUM 8.6 mg/dL (8.5-10.1); CO2 30 mmol/L (21-32); CREATININE 0.8 mg/dL (0.55-1.3); GLUCOSE,RANDOM 89 mg/dL (74-106); SGOT/AST 29 U/L (15-37); SGPT/ALT 28 U/L (13-61); TOT PROT 6.7 g/dl (6.4-8.2)
[2018-07-16] MEDS ORDERED: BACITRACIN 0.9 GM PACKET TP SCH (10:57)
--- NOTE | 2018-07-16 14:54 | CONSULT ---
[facility] Psychiatric Consult - Data Date of interview: 07/16/18 Admission source: [facility] Identifying data: Patient is a 43 year old single male, father of two, employed , and domiciled. This is one of multiple admissions for patient. Patient admitted to for marijuana and opiate dependence. Substance Abuse History: Smoking Cessation. Smoking history: Current every day smoker. Have you smoked in the past 12 months: Yes. Aproximately how many cigarettes per day: 2. Cigars Per Day: 0. Hx Chewing Tobacco Use: No. Initiated information on smoking cessation: Yes. 'Breaking Loose' booklet given : 07/15/18. - Substance & Tx. History. Hx Alcohol Use: No. Hx Substance Use: Yes. Substance Use Type: Heroin. Hx Substance Use Treatment: Yes ([facility]). - Substances Abused. Heroin. Route: SNIFF. Frequency: Daily. Amount used: 7 BAGS. Age of first use: 23. Date of Last Use: 07/15/18 Medical History: denies. Psychiatric History: Patient denies h/o psychiatric hospitalization. He reports multiple admissions to the [facility], most recently at [place] for bizzare behavior. Mr. Collazo reports seeing the psychiatrist in the [facility] and being discharge the day he was admitted. Patient denies h/o outpatient care and suicide attempt. Physical/Sexual Abuse/Trauma History: denies. Mental Status Exam - Mental Status Exam Alert and Oriented to: Time, Place, Person Cognitive Function: Good Patient Appearance: Well Groomed Mood: Euthymic Affect: Mood Congruent Patient Behavior: Fatigued, Guarded, Cooperative Speech Pattern: Appropriate Voice Loudness: Moderately Soft/Quiet Thought Process: Intact, Goal Oriented Thought Disorder: Not Present Hallucinations: Denies Suicidal Ideation: Denies Homicidal Ideation: Denies Insight/Judgement: Poor Sleep: Fair Appetite: Fair Muscle strength/Tone: Normal Gait/Station: Normal Psychiatric Findings - Problem List ([place] 1, 2,3) (1) Substance induced mood disorder Current Visit: Yes Status: Acute (2) Opioid dependence with withdrawal Current Visit: Yes Status: Acute (3) Cannabis dependence Current Visit: Yes Status: Chronic (4) Nicotine dependence Current Visit: Yes Status: Chronic Qualifiers: Nicotine product type: cigarettes - Initial Treatment Plan Initial Treatment Plan: Psychoeducation provided. Detoxification in progress. Observation.
--- NOTE | 2018-07-16 16:45 | EKG ---
Test Reason : Blood Pressure : / mmHG Vent. Rate : 070 BPM Atrial Rate : 070 BPM P-R Int : 170 ms QRS Dur : 092 ms QT Int : 390 ms P-R-T Axes : 072 066 054 degrees QTc Int : 421 ms NORMAL SINUS RHYTHM MINIMAL VOLTAGE CRITERIA FOR LVH, MAY BE NORMAL VARIANT EARLY REPOLARIZATION BORDERLINE ECG WHEN COMPARED WITH ECG OF 21-MAY-2018 22:18, NO SIGNIFICANT CHANGE WAS FOUND Confirmed by Gian Burk ([id number]) on 07/16/2018 4:44:57 PM Referred By: Confirmed By:Gian Burk
--- NOTE | 2018-07-16 16:46 | PN ---
BHS COWS - Scale Resting Pulse: 0= [place] 80 or Below Sweatin=Flushed/Facial Moisture Restless Observation: 1= Difficult to Sit Still Pupil Size: 0= Normal to Room Light Bone or Joint Aches: 0= None Runny Nose/ Eye Tearin= Runny Nose/Eyes GI Upset > 30mins: 0= None Tremor Observation of Outstretched Hands: 1= Tremor [place], Not Seen Yawning Observation: 0= None Anxiety or Irritability: 1=Feels Anxious/Irritable Goose Flesh Skin: 0=Smooth Skin COWS Score: 7 S Progress Note (SOAP) Subjective: States stills feels very shaky and sweating. Denies bone/muscle pain at this time. . Objective: A&O x3. (+) rhinorrhea. Abd S/NT/BS+. Facial perspiration present. Mild tremors of hands. Vital Signs 07/16/18 07/16/18 09:21 13:54 Temperature 97.0 F L 97.0 F L Pulse Rate 64 62 Respiratory 18 20 Rate Blood Pressure 109/69 125/86 Laboratory 07/16/18 07/16/18 07/16/18 07:50 07:50 10:00 WBC 4.7 K/mm3 K/mm3 (4.0-10.0) RBC 4.79 M/mm3 M/mm3 (4.00-5.60) Hgb 14.9 GM/dL GM/dL (11.7-16.9) Hct 44.2 % % (35.4-49) MCV 92.2 fl fl (80-96) MCH 31.1 pg pg (25.7-33.7) MCHC 33.7 g/dl g/dl (32.0-35.9) RDW 13.8 % % (11.9-15.9) Plt Count 204 K/MM3 K/MM3 (134-434) MPV 9.3 fl fl (7.5-11.1) Sodium 140 mmol/L mmol/L (136-145) Potassium 3.8 mmol/L mmol/L (3.5-5.1) Chloride 102 mmol/L mmol/L (98-107) Carbon Dioxide 30 mmol/L mmol/L (21-32) Anion Gap 8 MMOL/L MMOL/L (8-16) BUN 14 mg/dL mg/dL (7-18) Creatinine 0.8 mg/dL mg/dL (0.55-1.3) Creat Clearance w eGFR > 60 (>60) Random Glucose 89 mg/dL mg/dL (74-106) Calcium 8.6 mg/dL mg/dL (8.5-10.1) Total Bilirubin 0.3 mg/dL mg/dL (0.2-1) AST 29 U/L U/L (15-37) ALT 28 U/L U/L (13-61) Alkaline Phosphatase 77 U/L U/L (45-117) Total Protein 6.7 g/dl g/dl (6.4-8.2) Albumin 3.7 g/dl g/dl (3.4-5.0) RPR Titer Nonreactive (NONREACTIVE) Labs reviewed. Assessment: Withdrawal symptoms. Plan: Continue detox.
[2018-07-16 19:10] LABS: URINE APPEARANCE CLEAR; URINE BILIRUBIN NEGATIVE (<2.0 mg/dL); URINE COLOR YELLOW; URINE GLUCOSE (UA) NEGATIVE (NEGATIVE); URINE KETONE NEGATIVE (NEGATIVE); URINE LEUK ESTERASE NEGATIVE (NEGATIVE); URINE NITRITE NEGATIVE (NEGATIVE); URINE PROTEIN NEGATIVE (NEGATIVE); URINE UROBILINOGEN NEGATIVE mg/dL (0.2-1.0)
[2018-07-16] MEDS ORDERED: THIAMINE HCL 100 MG TABLET (FP) PO SCH (22:00)
[2018-07-17] MEDS ORDERED: METHADONE HCL 10 MG TABLET (FOR DETOX USE ONLY) PO ONE (10:00)
[2018-07-17] MEDS: PRENATAL VITAMINS W/ FOLIC ACID TABLET (FP) PO SCH (10:57)
[2018-07-17] MEDS: NICOTINE 14 MG/24 HOURS TOPICAL PATCH TD SCH (10:58)
--- NOTE | 2018-07-17 11:15 | PN ---
BHS COWS - Scale Resting Pulse: 0= [place] 80 or Below Sweatin= Chills/Flushing Restless Observation: 3= Extraneous Movement Pupil Size: 2= Moderately Dilated Bone or Joint Aches: 1= Mild Discomfort Runny Nose/ Eye Tearin= None GI Upset > 30mins: 0= None Tremor Observation of Outstretched Hands: 1= Tremor [place], Not Seen Yawning Observation: 2= >3x During Session Anxiety or Irritability: 2=Irritable/Anxious Goose Flesh Skin: 0=Smooth Skin COWS Score: 12 BHS Progress Note (SOAP) Subjective: SLIGHT ANXIETY, SWEATS,FATIGUE. Objective: 07/17/18 11:15 Vital Signs 07/17/18 07/17/18 07/17/18 03:30 07:00 09:25 Temperature 97.3 F L 98.1 F Pulse Rate 54 L 60 Respiratory 18 18 16 Rate Blood Pressure 97/62 99/66 Laboratory Tests 07/16/18 07/16/18 07/16/18 07:50 07:50 10:00 WBC 4.7 RBC 4.79 Hgb 14.9 Hct 44.2 MCV 92.2 MCH 31.1 MCHC 33.7 RDW 13.8 Plt Count 204 MPV 9.3 Sodium 140 Potassium 3.8 Chloride 102 Carbon Dioxide 30 Anion Gap 8 BUN 14 Creatinine 0.8 Creat Clearance w eGFR > 60 Random Glucose 89 Calcium 8.6 Total Bilirubin 0.3 AST 29 ALT 28 Alkaline Phosphatase 77 Total Protein 6.7 Albumin 3.7 Urine Color Urine Appearance Urine pH Ur Specific [place] Urine Protein Urine Glucose (UA) Urine Ketones Urine Blood Urine Nitrite Urine Bilirubin Urine Urobilinogen Ur Leukocyte Esterase RPR Titer Nonreactive 07/16/18 17:30 WBC RBC Hgb Hct MCV MCH MCHC RDW Plt Count MPV Sodium Potassium Chloride Carbon Dioxide Anion Gap BUN Creatinine Creat Clearance w eGFR Random Glucose Calcium Total Bilirubin AST ALT Alkaline Phosphatase Total Protein Albumin Urine Color Yellow Urine Appearance Clear Urine pH 6.0 Ur Specific [place] 1.026 Urine Protein Negative Urine Glucose (UA) Negative Urine Ketones Negative Urine Blood Negative Urine Nitrite Negative Urine Bilirubin Negative Urine Urobilinogen Negative Ur Leukocyte Esterase Negative RPR Titer Assessment: 07/17/18 11:15 WITHDRAWAL SX Plan: CONTINUE DETOX
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
[2018-07-17 19:02] VITALS: BP 119/63; PULSE 63; TEMP 97.1
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
--- NOTE | 2018-07-17 20:46 | DS ---
[facility] Detox Discharge Summary Admission Date: 07/15/18 Discharge Date: 07/17/18 - History Present History: Opioid Dependence Additional Comments: Admitted w/ complaints of opiate withdrawal. - Physical Exam Results Vital Signs: Vital Signs Temperature 97.1 F L 07/17/18 18:00 Pulse Rate 63 07/17/18 18:00 Respiratory Rate 18 07/17/18 18:00 Blood Pressure 119/63 07/17/18 18:00 O2 Sat by Pulse Oximetry (%) Pertinent Admission Physical Exam Findings: Patient presented with withdrawal symptoms. Lab Results WBC 4.7 K/mm3 (4.0-10.0) 07/16/18 07:50 RBC 4.79 M/mm3 (4.00-5.60) 07/16/18 07:50 Hgb 14.9 GM/dL (11.7-16.9) 07/16/18 07:50 Hct 44.2 % (35.4-49) 07/16/18 07:50 MCV 92.2 fl (80-96) 07/16/18 07:50 MCHC 33.7 g/dl (32.0-35.9) 07/16/18 07:50 RDW 13.8 % (11.9-15.9) 07/16/18 07:50 Plt Count 204 K/MM3 (134-434) 07/16/18 07:50 Sodium 140 mmol/L (136-145) 07/16/18 07:50 Potassium 3.8 mmol/L (3.5-5.1) 07/16/18 07:50 Chloride 102 mmol/L (98-107) 07/16/18 07:50 Carbon Dioxide 30 mmol/L (21-32) 07/16/18 07:50 Anion Gap 8 MMOL/L (8-16) 07/16/18 07:50 BUN 14 mg/dL (7-18) 07/16/18 07:50 Creatinine 0.8 mg/dL (0.55-1.3) 07/16/18 07:50 Random Glucose 89 mg/dL (74-106) 07/16/18 07:50 Calcium 8.6 mg/dL (8.5-10.1) 07/16/18 07:50 Labs reviewed. - Treatment Hospital Course: Detox Protocol Followed (Did not complete detox protocol.) Patient has Accepted a Rehab Referral to: Patient refused referral suggestions. - Medication Discharge Medications: Ambulatory Orders Methocarbamol [Robaxin -] 750 mg PO Q8H PRN #20 tablet 07/19/18 Naproxen 500 mg PO BID PRN #30 tablet 07/19/18 - Diagnosis (1) Opioid dependence with withdrawal Status: Acute - AMA Did Patient Leave Against Medical Advice: Yes
[2018-07-18] MEDS ORDERED: METHADONE HCL 5 MG TABLET (FOR DETOX USE ONLY) PO ONE (10:00)
[2018-07-19] MEDS ORDERED: METHADONE HCL 5 MG TABLET (FOR DETOX USE ONLY) PO ONE (10:00)
[2018-07-20] MEDS ORDERED: METHADONE HCL 10 MG TABLET (FOR DETOX USE ONLY) PO ONE (10:00)
[2018-07-21] MEDS ORDERED: METHADONE HCL 5 MG TABLET (FOR DETOX USE ONLY) PO ONE (06:00)
== END 2018-07-17 18:40 | disposition left against medical advice (07) | DRG 770 ==
LOC: YASAS 10:43 → Y3N 21:31
PROC: HZ2ZZZZ Detoxification Services for Substance Abuse Treatment (ICD-10-PCS; principal; 2018-07-15)
DX: F11.23 Opioid dependence with withdrawal (principal); F12.20 Cannabis dependence, uncomplicated; F17.213 Nicotine dependence, cigarettes, with withdrawal; F19.24 Other psychoactive substance dependence with psychoactive substance-induced mood disorder; F31.9 Bipolar disorder, unspecified; Z91.89 Other specified personal risk factors, not elsewhere classified
CPT/HCPCS: 36415; 80053; 81003; 85027; 86593; 93005; 93010

== ENCOUNTER 2018-07-19 19:37 | Emergency (ER) | payer OTHER ==
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
[2018-07-19 19:44] VITALS: BP 134/93; PULSE 116; TEMP 97; BMI 26.2
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
[2018-07-19] MEDS ORDERED: KETOROLAC TROMETHAMINE 30 MG/1 ML VIAL ONE (20:58)
[2018-07-19] MEDS ORDERED: KETOROLAC TROMETHAMINE 30 MG/1 ML VIAL IM ONE (21:08)
== END 2018-07-19 21:12 | disposition home or self-care (01) ==
LOC: JERFT 19:37
PROC: 3E0233Z Introduction of Anti-inflammatory into Muscle, Percutaneous Approach (ICD-10-PCS; principal; 2018-07-19)
DX: S46.811A Strain of other muscles, fascia and tendons at shoulder and upper arm level, right arm, initial encounter (principal); Y04.2XXA Assault by strike against or bumped into by another person, initial encounter; Y93.89 Activity, other specified; Y92.238 Other place in hospital as the place of occurrence of the external cause; Y99.8 Other external cause status; Y07.9 Unspecified perpetrator of maltreatment and neglect
CPT/HCPCS: 73030-TC-RT-FY; 99281-25

== ENCOUNTER 2018-08-18 11:56 | Inpatient (IN) | payer OTHER ==
[2018-08-18 15:58] VITALS: BMI 25.0
--- NOTE | 2018-08-18 19:25 | HP ---
COWS - Scale Resting Pulse: 0= [place] 80 or Below Sweatin=Flushed/Facial Moisture Restless Observation: 3= Extraneous Movement Pupil Size: 0= Normal to Room Light Bone or Joint Aches: 1= Mild Discomfort Runny Nose/ Eye Tearin= Nasal Congestion GI Upset > 30mins: 2= Nausea/Diarrhea Tremor Observation: 2= Slight Tremor Visible Yawning Observation: 1= 1-2x During Session Anxiety or Irritability: 1=Feels Anxious/Irritable Goose Flesh Skin: 3=Piloerection COWS Score: 16 Admission ROS S - HPI Chief Complaint: "i am here for detox from heroin" Allergies/Adverse Reactions: Allergies Allergy/AdvReac Type Severity Reaction Status Date / Time No Known Allergies Allergy Verified 08/18/18 17:57 History of Present Illness: 43 y/o male with a long history of heroin addiction presents today for detox. Pt is well known to the facility and was last here in Jun 2018. Pt endorses on and off periods of sobriety, but usually due to incarceration. Denies any remarkable hx. Denies any Suicidal ideation. Exam Limitations: No Limitations - Ebola screening Have you traveled outside of the country in the last 21 days: No Have you had contact with anyone from an Ebola affected area: No Have you been sick,other than usual withdrawal symptoms: No Do you have a fever: No - Review of Systems Constitutional: Loss of Appetite, Unintentional Wgt. Loss EENT: reports: No Symptoms Reported, Nose Congestion Respiratory: reports: No Symptoms reported Cardiac: reports: No Symptoms Reported GI: reports: Diarrhea, Nausea : reports: No Symptoms Reported Musculoskeletal: reports: Back Pain, Joint Pain Integumentary: reports: Flushing Neuro: reports: No Symptoms reported Endocrine: reports: No Symptoms Reported Hematology: reports: No Symptoms Reported Psychiatric: reports: Orientated x3, Agitated, Anxious Other Systems: Reviewed and Negative Patient History - Patient Medical History Hx Anemia: No Hx Asthma: No Hx Chronic Obstructive Pulmonary Disease (COPD): No Hx Cancer: No Hx Cardiac Disorders: No Hx Congestive Heart Failure: No Hx Hypertension: No Hx Hypercholesterolemia: No Hx Pacemaker: No HX Cerebrovascular Accident: No Hx Seizures: No Hx Dementia: No Hx Diabetes: No Hx Gastrointestinal Disorders: No Hx Liver Disease: No Hx Genitourinary Disorders: No Hx Sexually Transmitted Disorders: No Hx Renal Disease (ESRD): No Hx Thyroid Disease: No Hx Human Immunodeficiency Virus (HIV): No Hx Hepatitis C: No Hx Depression: Yes Hx Suicide Attempt: No Hx Bipolar Disorder: Yes Hx Schizophrenia: No - Patient Surgical History Past Surgical History: No Hx Neurologic Surgery: No Hx Cataract Extraction: No Hx Cardiac Surgery: No Hx Lung Surgery: No Hx Breast Surgery: No Hx Breast Biopsy: No Hx Abdominal Surgery: No Hx Appendectomy: No Hx Cholecystectomy: No Hx Genitourinary Surgery: No Hx Section: No Hx Orthopedic Surgery: No Anesthesia Reaction: No - PPD History Date: 04/06/18 Results: 0MM - Smoking Cessation Smoking history: Current every day smoker Have you smoked in the past 12 months: Yes Aproximately how many cigarettes per day: 2 Cigars Per Day: 0 Hx Chewing Tobacco Use: No Initiated information on smoking cessation: Yes 'Breaking Loose' booklet given: 08/18/18 - Substances Abused Heroin Route: SNIFF Frequency: Daily Amount used: 3 BAGS Age of first use: 23 Date of Last Use: 08/17/18 Marijuana/Hashish Route: Smoking Frequency: 3-6 times per week Amount used: 2 BAGS Age of first use: 16 Date of Last Use: 08/18/18 PCP Route: Smoking Frequency: 1-3 times last 30 days Amount used: a blunt Age of first use: 20 Date of Last Use: 07/13/18 Family Disease History - Family Disease History Family Disease History: Diabetes: Grandparent, Heart Disease: Grandparent, Other : Father (HIV/AIDS , iv drug user ) Admission Physical Exam S - Vital Signs Vital Signs: Vital Signs - 24 hr 08/18/18 15:52 Temperature 96.2 F L Pulse Rate 70 Respiratory 18 Rate Blood Pressure 128/70 - Physical General Appearance: Yes: Moderate Distress, Irritable HEENTM: Yes: Nasal Congestion, Other (Discoloration to L aspect of forehead s/p "I fell some days ago") Respiratory: Yes: Lungs Clear, No Respiratory Distress, No Accessory Muscle Use Neck: Yes: No masses,lesions,Nodules, Trachea in good position Breast: Yes: Breast Exam Deferred Abdominal: Yes: Within Normal Limits, Non Tender Genitourinary: Yes: Within Normal Limits Back: Yes: Normal Inspection Musculoskeletal: Yes: full range of Motion, Gait Steady Extremities: Yes: Within Normal Limits, Normal Capillary Refill Neurological: Yes: Within Normal Limits, Alert, Motor Strength 5/5 Integumentary: Yes: Within Normal Limits Lymphatic: Yes: Within Normal Limits - Diagnostic (1) Uncomplicated opioid dependence Current Visit: Yes Status: Acute (2) Anxious mood Current Visit: Yes Status: Suspected (3) Cannabis dependence Current Visit: Yes Status: Chronic (4) PCP dependence. Current Visit: Yes Status: Chronic Cleared for Admission [facility] - Detox or Rehab [facility] Level of Care: Medically Managed Detox Regimen/Protocol: Methadone [facility] Breath Alcohol Content Breath Alcohol Content: 0 Urine Drug Screen - Results Drug Screen Negative: No Urine Drug Screen Results: THC-Marijuana, OPI-Opiates, FEN-Fentanyl
[2018-08-18] MEDS ORDERED: METHADONE HCL 10 MG TABLET (FOR DETOX USE ONLY) PO ONE ×2 (19:39→23:00)
[2018-08-18] MEDS ORDERED: guaiFENesin/D-METHORPHAN HB 10 ML UNIT-DOSE CUPS PO PRN (19:39)
[2018-08-18] MEDS ORDERED: MAGNESIUM CITRATE 300 ML BOTTLE PO PRN (19:39)
[2018-08-18] MEDS ORDERED: IBUPROFEN 400 MG TABLET (FP) PO PRN (19:39)
[2018-08-18] MEDS ORDERED: P-EPHED 60MG/TRIPROLIDI 2.5MG TABLET PO PRN (19:39)
[2018-08-18] MEDS ORDERED: LOPERAMIDE HCL 2 MG CAPSULE PO PRN (19:39)
[2018-08-18] MEDS ORDERED: MENTHOL/PHENOL 1 EACH UD MM PRN (19:39)
[2018-08-18] MEDS ORDERED: ACETAMINOPHEN 325 MG TABLET (FP) PO PRN (19:39)
[2018-08-18] MEDS ORDERED: MAGNESIUM HYDROX 2400MG/30ML ORAL SUSPENSION 30 ML CUP PO PRN (19:39)
[2018-08-18] MEDS ORDERED: MAG HYDROX/AL HYDROX/SIMETH 30 ML UNIT-DOSE CUP PO PRN (19:39)
--- NOTE | 2018-08-18 19:42 | PN ---
[facility] Progress Note Note: pt declined NRT stating he had stopped smoking. Pt also declined psych consult.
[2018-08-18] MEDS: THIAMINE HCL 100 MG TABLET (FP) PO SCH (22:03)
[2018-08-18] MEDS: diazePAM 5 MG TABLET PO PRN (22:03)
[2018-08-18] MEDS: MELATONIN 5 MG TABLETS PO PRN (22:03)
[2018-08-19] MEDS ORDERED: METHADONE HCL 10 MG TABLET (FOR DETOX USE ONLY) PO ONE (10:00)
[2018-08-19] MEDS: diazePAM 5 MG TABLET PO PRN ×3 (10:22→22:16)
[2018-08-19] MEDS: PRENATAL VITAMINS W/ FOLIC ACID TABLET (FP) PO SCH (10:23)
[2018-08-19 11:16] LABS: ALBUMIN 3.4 g/dl (3.4-5.0); ALK PHOS 56 U/L (45-117); ANION GAP 6 MMOL/L (8-16); BILIRUBIN,TOTAL 0.3 mg/dL (0.2-1); BLOOD UREA NITROGEN 12 mg/dL (7-18); CALCIUM 8.1 mg/dL (8.5-10.1); CHLORIDE 106 mmol/L (98-107); CO2 30 mmol/L (21-32); CREATININE 0.8 mg/dL (0.55-1.3); GLUCOSE,RANDOM 82 mg/dL (74-106); POTASSIUM 4.2 mmol/L (3.5-5.1); SGOT/AST 20 U/L (15-37); SGPT/ALT 22 U/L (13-61); SODIUM 142 mmol/L (136-145); TOT PROT 6.3 g/dl (6.4-8.2)
[2018-08-19 11:19] LABS: HEMATOCRIT 43.3 % (35.4-49); HEMOGLOBIN 14.1 GM/dL (11.7-16.9); MCH 30.2 pg (25.7-33.7); MCHC 32.6 g/dl (32.0-35.9); MEAN CELL VOLUME 92.5 fl (80-96); MEAN PLT VOLUME 9.9 fl (7.5-11.1); PLATELET COUNT 180 K/MM3 (134-434); RBC 4.68 M/mm3 (4.00-5.60); RDW 13.6 % (11.9-15.9); WHITE BLOOD COUNT 4.9 K/mm3 (4.0-10.0)
--- NOTE | 2018-08-19 12:26 | PN ---
[facility] COWS - Scale Resting Pulse: 0= [place] 80 or Below Sweatin=Flushed/Facial Moisture Restless Observation: 3= Extraneous Movement Pupil Size: 0= Normal to Room Light Bone or Joint Aches: 1= Mild Discomfort Runny Nose/ Eye Tearin= Nasal Congestion GI Upset > 30mins: 2= Nausea/Diarrhea Tremor Observation of Outstretched Hands: 2= Slight Tremor Visible Yawning Observation: 2= >3x During Session Anxiety or Irritability: 2=Irritable/Anxious Goose Flesh Skin: 0=Smooth Skin COWS Score: 15 BHS Progress Note (SOAP) Subjective: sweats tremors bodyaches diarrhea Objective: 08/19/18 12:28 A & O x 3 Ambulating steadily Vital Signs Temperature 97.4 F L 08/19/18 10:01 Pulse Rate 87 08/19/18 10:01 Respiratory Rate 16 08/19/18 10:01 Blood Pressure 95/69 08/19/18 10:01 O2 Sat by Pulse Oximetry (%) Laboratory Last Values WBC 4.9 K/mm3 (4.0-10.0) 08/19/18 07:00 RBC 4.68 M/mm3 (4.00-5.60) 08/19/18 07:00 Hgb 14.1 GM/dL (11.7-16.9) 08/19/18 07:00 Hct 43.3 % (35.4-49) 08/19/18 07:00 MCV 92.5 fl (80-96) 08/19/18 07:00 MCH 30.2 pg (25.7-33.7) 08/19/18 07:00 MCHC 32.6 g/dl (32.0-35.9) 08/19/18 07:00 RDW 13.6 % (11.9-15.9) 08/19/18 07:00 Plt Count 180 K/MM3 (134-434) 08/19/18 07:00 MPV 9.9 fl (7.5-11.1) 08/19/18 07:00 Sodium 142 mmol/L (136-145) 08/19/18 07:00 Potassium 4.2 mmol/L (3.5-5.1) 08/19/18 07:00 Chloride 106 mmol/L (98-107) 08/19/18 07:00 Carbon Dioxide 30 mmol/L (21-32) 08/19/18 07:00 Anion Gap 6 MMOL/L (8-16) L 08/19/18 07:00 BUN 12 mg/dL (7-18) 08/19/18 07:00 Creatinine 0.8 mg/dL (0.55-1.3) 08/19/18 07:00 Creat Clearance w eGFR > 60 (>60) 08/19/18 07:00 Random Glucose 82 mg/dL (74-106) 08/19/18 07:00 Calcium 8.1 mg/dL (8.5-10.1) L 08/19/18 07:00 Total Bilirubin 0.3 mg/dL (0.2-1) 08/19/18 07:00 AST 20 U/L (15-37) 08/19/18 07:00 ALT 22 U/L (13-61) 08/19/18 07:00 Alkaline Phosphatase 56 U/L (45-117) 08/19/18 07:00 Total Protein 6.3 g/dl (6.4-8.2) L 08/19/18 07:00 Albumin 3.4 g/dl (3.4-5.0) 08/19/18 07:00 RPR Titer Nonreactive (NONREACTIVE) 08/19/18 07:00 LAbs noted Assessment: 08/19/18 12:30 withdrawal sx Plan: continue detox increase drinking water
[2018-08-19] MEDS ORDERED: BACITRACIN 0.9 GM PACKET TP ONE (12:35)
[2018-08-19] MEDS: MELATONIN 5 MG TABLETS PO PRN (22:16)
[2018-08-19] MEDS: THIAMINE HCL 100 MG TABLET (FP) PO SCH (22:16)
[2018-08-20 00:03] LABS: URINE APPEARANCE CLEAR; URINE BILIRUBIN NEGATIVE (<2.0 mg/dL); URINE COLOR YELLOW; URINE GLUCOSE (UA) NEGATIVE (NEGATIVE); URINE KETONE NEGATIVE (NEGATIVE); URINE LEUK ESTERASE NEGATIVE (NEGATIVE); URINE NITRITE NEGATIVE (NEGATIVE); URINE PROTEIN NEGATIVE (NEGATIVE); URINE UROBILINOGEN NEGATIVE mg/dL (0.2-1.0)
[2018-08-20 09:38] VITALS: BP 111/74; PULSE 72; TEMP 97.8
[2018-08-20] MEDS ORDERED: METHADONE HCL 5 MG TABLET (FOR DETOX USE ONLY) PO ONE (10:00)
[2018-08-20] MEDS: PRENATAL VITAMINS W/ FOLIC ACID TABLET (FP) PO SCH (11:03)
--- NOTE | 2018-08-20 11:38 | PN ---
[facility] COWS - Scale Resting Pulse: 0= [place] 80 or Below Sweatin= No chills or Flushing Restless Observation: 1= Difficult to Sit Still Pupil Size: 2= Moderately Dilated Bone or Joint Aches: 2= Severe Diffuse Aches Runny Nose/ Eye Tearin= None GI Upset > 30mins: 0= None Tremor Observation of Outstretched Hands: 0= None Yawning Observation: 1= 1-2x During Session Anxiety or Irritability: 2=Irritable/Anxious Goose Flesh Skin: 0=Smooth Skin COWS Score: 8 BHS Progress Note (SOAP) Subjective: PATIENT ANXIOUS/RESTLESS, C/O BODY ACHES. Objective: 08/20/18 11:36 Laboratory Tests 08/19/18 08/19/18 08/19/18 07:00 07:00 07:00 WBC 4.9 RBC 4.68 Hgb 14.1 Hct 43.3 MCV 92.5 MCH 30.2 MCHC 32.6 RDW 13.6 Plt Count 180 MPV 9.9 Sodium 142 Potassium 4.2 Chloride 106 Carbon Dioxide 30 Anion Gap 6 L BUN 12 Creatinine 0.8 Creat Clearance w eGFR > 60 Random Glucose 82 Calcium 8.1 L Total Bilirubin 0.3 AST 20 ALT 22 Alkaline Phosphatase 56 Total Protein 6.3 L Albumin 3.4 Urine Color Urine Appearance Urine pH Ur Specific [place] Urine Protein Urine Glucose (UA) Urine Ketones Urine Blood Urine Nitrite Urine Bilirubin Urine Urobilinogen Ur Leukocyte Esterase RPR Titer Nonreactive 08/19/18 22:22 WBC RBC Hgb Hct MCV MCH MCHC RDW Plt Count MPV Sodium Potassium Chloride Carbon Dioxide Anion Gap BUN Creatinine Creat Clearance w eGFR Random Glucose Calcium Total Bilirubin AST ALT Alkaline Phosphatase Total Protein Albumin Urine Color Yellow Urine Appearance Clear Urine pH 6.0 Ur Specific [place] 1.027 Urine Protein Negative Urine Glucose (UA) Negative Urine Ketones Negative Urine Blood Negative Urine Nitrite Negative Urine Bilirubin Negative Urine Urobilinogen Negative Ur Leukocyte Esterase Negative RPR Titer Vital Signs Temperature 97.8 F 08/20/18 09:38 Pulse Rate 72 08/20/18 09:38 Respiratory Rate 18 08/20/18 09:38 Blood Pressure 111/74 08/20/18 09:38 O2 Sat by Pulse Oximetry (%) SKIN WARM AND DRY CAR S1S2 RESP CTA BL EXT NO EDEMA, FULL ROM ANXIOUS AND PACING IN HALLWAY ALERT AND ORIENTED X 3 Assessment: 08/20/18 11:37 WITHDRAWAL SX Plan: CONTINUE DETOX ENCOURAGE ORAL FLUIDS CONTINUE TO MONITOR CLINICALLY
--- NOTE | 2018-08-20 13:01 | EKG ---
Test Reason : Blood Pressure : / mmHG Vent. Rate : 065 BPM Atrial Rate : 065 BPM P-R Int : 162 ms QRS Dur : 084 ms QT Int : 398 ms P-R-T Axes : 039 070 061 degrees QTc Int : 413 ms NORMAL SINUS RHYTHM INCREASED R/S RATIO IN V1, CONSIDER EARLY TRANSITION OR POSTERIOR INFARCT ABNORMAL ECG Confirmed by MD ROBLES, DONNA ([id number]) on 08/20/2018 1:01:10 PM Referred By: Zoie Rutherford Confirmed By:DONNA ARBOLEDA MD
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
[2018-08-21] MEDS ORDERED: METHADONE HCL 5 MG TABLET (FOR DETOX USE ONLY) PO ONE (10:00)
[2018-08-22] MEDS ORDERED: METHADONE HCL 10 MG TABLET (FOR DETOX USE ONLY) PO ONE (10:00)
[2018-08-23] MEDS ORDERED: METHADONE HCL 5 MG TABLET (FOR DETOX USE ONLY) PO ONE (06:00)
== END 2018-08-20 13:40 | disposition home or self-care (01) | DRG 773 ==
LOC: YASAS 11:56 → Y3N 18:03
PROC: HZ2ZZZZ Detoxification Services for Substance Abuse Treatment (ICD-10-PCS; principal; 2018-08-18)
DX: F11.23 Opioid dependence with withdrawal (principal); F12.20 Cannabis dependence, uncomplicated; F16.20 Hallucinogen dependence, uncomplicated; F91.8 Other conduct disorders; F41.9 Anxiety disorder, unspecified; Z72.0 Tobacco use; Z91.19 Patient's noncompliance with other medical treatment and regimen
CPT/HCPCS: 36415; 80053; 81003; 85027; 86593; 93005; 93010

== ENCOUNTER 2018-10-05 11:42 | Inpatient (IN) | payer OTHER ==
[2018-10-05 14:08] VITALS: BMI 25.2
--- NOTE | 2018-10-05 14:17 | HP ---
COWS - Scale Resting Pulse: 0= [place] 80 or Below Sweatin= No chills or Flushing Restless Observation: 1= Difficult to Sit Still Pupil Size: 0= Normal to Room Light Bone or Joint Aches: 1= Mild Discomfort Runny Nose/ Eye Tearin= Nasal Congestion GI Upset > 30mins: 2= Nausea/Diarrhea Tremor Observation: 2= Slight Tremor Visible Yawning Observation: 1= 1-2x During Session Anxiety or Irritability: 2=Irritable/Anxious Goose Flesh Skin: 0=Smooth Skin COWS Score: 10 Admission ROS [facility] - HPI Chief Complaint: I keep using, I keep relapsing, I want to go to rehab after detox Allergies/Adverse Reactions: Allergies Allergy/AdvReac Type Severity Reaction Status Date / Time No Known Allergies Allergy Verified 08/18/18 17:57 History of Present Illness: 43 yo gentleman here for detox from opiates - long history of using, last time in detox was july 2018 - history of five of overdoses. States methadone made his 'bones hurt' when he was on a methadone program. States he sometimes uses street suboxone and wants to try to get on that. States alcohol is 'not my problem' and only drinks occasionally. He states the last time he was here, he did go to [facility] as he was told but he states they told him that he did not have an appointment and he would have to come back in a month and then he relapsed. Exam Limitations: Clinical Condition - Ebola screening Have you traveled outside of the country in the last 21 days: No ([place]) Have you had contact with anyone from an Ebola affected area: No Have you been sick,other than usual withdrawal symptoms: No Do you have a fever: No - Review of Systems Constitutional: Loss of Appetite, Changes in sleep EENT: reports: Blurred Vision, Nose Congestion Respiratory: reports: No Symptoms reported Cardiac: reports: No Symptoms Reported GI: reports: Nausea : reports: Dysuria Musculoskeletal: reports: Back Pain, Joint Pain, Muscle Pain Integumentary: reports: No Symptoms Reported Neuro: reports: Headache, Tremors Endocrine: reports: No Symptoms Reported Hematology: reports: No Symptoms Reported Psychiatric: reports: Judgement Intact, Mood/Affect Appropiate, Anxious Other Systems: Reviewed and Negative Patient History - Patient Medical History Hx Anemia: No Hx Asthma: No Hx Chronic Obstructive Pulmonary Disease (COPD): No Hx Cancer: No Hx Cardiac Disorders: No Hx Congestive Heart Failure: No Hx Hypertension: No Hx Hypercholesterolemia: No Hx Pacemaker: No HX Cerebrovascular Accident: No Hx Seizures: No Hx Dementia: No Hx Diabetes: No Hx Gastrointestinal Disorders: No Hx Liver Disease: No Hx Genitourinary Disorders: No Hx Sexually Transmitted Disorders: No Hx Renal Disease (ESRD): No Hx Thyroid Disease: No Hx Human Immunodeficiency Virus (HIV): No Hx Hepatitis C: No Hx Depression: Yes Hx Suicide Attempt: No Hx Bipolar Disorder: Yes ('mood disorder') Hx Schizophrenia: No - Patient Surgical History Past Surgical History: No Hx Neurologic Surgery: No Hx Cataract Extraction: No Hx Cardiac Surgery: No Hx Lung Surgery: No Hx Breast Surgery: No Hx Breast Biopsy: No Hx Abdominal Surgery: No Hx Appendectomy: No Hx Cholecystectomy: No Hx Genitourinary Surgery: No Hx Section: No Hx Orthopedic Surgery: No Other Surgical History: left calf abscess drained 2016 Anesthesia Reaction: No - PPD History Previous Implant?: Yes Documented Results: Negative w/proof Implanted On Prior [facility] Admission?: Yes Date: 04/06/18 Results: 0MM PPD to be Administered?: No - Reproductive History Patient is a Female of Child Bearing Age (11 -55 yrs old): No (male) - Smoking Cessation Smoking history: Current some day smoker Have you smoked in the past 12 months: Yes Aproximately how many cigarettes per day: 2 Cigars Per Day: 0 Hx Chewing Tobacco Use: No Initiated information on smoking cessation: Yes 'Breaking Loose' booklet given: 10/05/18 ( give on floor) - Substance & Tx. History Hx Alcohol Use: Yes Hx Substance Use: Yes Substance Use Type: Alcohol Hx Substance Use Treatment: Yes (detox, rehab, methadone program) - Substances Abused alcohol Frequency: 1-2 times per week Amount used: 1 beer; one shots whiskey Age of first use: 14 Date of Last Use: 10/05/18 heroin Route: Inhalation Frequency: Daily Amount used: 4 bags Age of first use: 23 Date of Last Use: 10/04/18 marijuana Route: Smoking Frequency: 3-6 times per week Amount used: 1 blunt Age of first use: 15 Date of Last Use: 10/01/18 Family Disease History - Family Disease History Family Disease History: Diabetes: Grandparent, Heart Disease: Grandparent, Mother (living, hx cva,psych issues), Other: Father (HIV/AIDS , iv drug user ), Mother, Son (age 14, ), Daughter (age 13) Admission Physical Exam [facility] - Vital Signs Vital Signs: Vital Signs - 24 hr 10/05/18 14:05 Temperature 98.3 F Pulse Rate 74 Respiratory 18 Rate Blood Pressure 127/72 - Physical General Appearance: Yes: Nourished, Appropriately Dressed, Moderate Distress, Anxious HEENTM: Yes: Hearing grossly Normal, Normocephalic, Normal Voice, Pharynx Normal , Nasal Congestion Respiratory: Yes: Normal Breath Sounds, No Respiratory Distress Neck: Yes: No masses,lesions,Nodules, Supple Breast: Yes: Breast Exam Deferred Cardiology: Yes: Regular Rhythm, Regular Rate Abdominal: Yes: Flat Genitourinary: Yes: Dysuria Back: Yes: Normal Inspection Musculoskeletal: Yes: full range of Motion, Gait Steady Extremities: Yes: Normal Inspection, Normal Range of Motion, Non-Tender, Tremors Neurological: Yes: Alert, Motor Strength 5/5, Normal Mood/Affect, Normal Response Integumentary: Yes: Normal Color, Warm, Other (scratch win both lower extremities) Lymphatic: Yes: Within Normal Limits - Diagnostic (1) Opioid dependence with withdrawal Current Visit: Yes Status: Chronic (2) Nicotine dependence Current Visit: Yes Status: Acute Qualifiers: Nicotine product type: cigarettes Substance use status: uncomplicated Qualified Code(s): F17.210 - Nicotine dependence, cigarettes, uncomplicated Cleared for Admission [facility] - Detox or Rehab [facility] Level of Care: Medically Managed Detox Regimen/Protocol: Methadone [facility] Breath Alcohol Content Breath Alcohol Content: 0.012 Urine Drug Screen - Results Drug Screen Negative: No Urine Drug Screen Results: THC-Marijuana, OPI-Opiates, FEN-Fentanyl
[2018-10-05] MEDS ORDERED: P-EPHED 60MG/TRIPROLIDI 2.5MG TABLET PO PRN (14:27)
[2018-10-05] MEDS ORDERED: MAGNESIUM HYDROX 2400MG/30ML ORAL SUSPENSION 30 ML CUP PO PRN (14:27)
[2018-10-05] MEDS ORDERED: LOPERAMIDE HCL 2 MG CAPSULE PO PRN (14:27)
[2018-10-05] MEDS ORDERED: MAG HYDROX/AL HYDROX/SIMETH 30 ML UNIT-DOSE CUP PO PRN (14:27)
[2018-10-05] MEDS ORDERED: ACETAMINOPHEN 325 MG TABLET (FP) PO PRN (14:27)
[2018-10-05] MEDS ORDERED: MENTHOL/PHENOL 1 EACH UD MM PRN (14:27)
[2018-10-05] MEDS ORDERED: hydrOXYzine PAMOATE 25 MG CAPSULE (FP) PO PRN (14:27)
[2018-10-05] MEDS ORDERED: IBUPROFEN 400 MG TABLET (FP) PO PRN (14:27)
[2018-10-05] MEDS ORDERED: MAGNESIUM CITRATE 300 ML BOTTLE PO PRN (14:27)
[2018-10-05] MEDS ORDERED: guaiFENesin/D-METHORPHAN HB 10 ML UNIT-DOSE CUPS PO PRN (14:27)
[2018-10-05] MEDS ORDERED: METHADONE HCL 10 MG TABLET (FOR DETOX USE ONLY) PO ONE ×2 (15:30→23:00)
[2018-10-05] MEDS: diazePAM 5 MG TABLET PO PRN ×2 (16:49→22:17)
[2018-10-05] MEDS: THIAMINE HCL 100 MG TABLET (FP) PO SCH (22:17)
[2018-10-05] MEDS: MELATONIN 5 MG TABLETS PO PRN (22:17)
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
[2018-10-06] MEDS ORDERED: PRENATAL VITAMINS W/ FOLIC ACID TABLET (FP) PO SCH (10:00)
[2018-10-06] MEDS ORDERED: METHADONE HCL 10 MG TABLET (FOR DETOX USE ONLY) PO ONE (10:00)
[2018-10-06 10:38] LABS: HEMATOCRIT 39.4 % (35.4-49); HEMOGLOBIN 13.9 GM/dL (11.7-16.9); MCH 32.5 pg (25.7-33.7); MCHC 35.3 g/dl (32.0-35.9); MEAN CELL VOLUME 91.8 fl (80-96); PLATELET COUNT 202 K/MM3 (134-434); RBC 4.29 M/mm3 (4.00-5.60); RDW 13.7 % (11.9-15.9); WHITE BLOOD COUNT 6.7 K/mm3 (4.0-10.0)
[2018-10-06 10:56] LABS: ALBUMIN 3.2 g/dl (3.4-5.0); ALK PHOS 68 U/L (45-117); ANION GAP 7 MMOL/L (8-16); BILIRUBIN,TOTAL 0.2 mg/dL (0.2-1); BLOOD UREA NITROGEN 15 mg/dL (7-18); CALCIUM 8.1 mg/dL (8.5-10.1); CHLORIDE 105 mmol/L (98-107); CO2 29 mmol/L (21-32); CREATININE 0.8 mg/dL (0.55-1.3); GLUCOSE,RANDOM 88 mg/dL (74-106); POTASSIUM 4.2 mmol/L (3.5-5.1); SGOT/AST 17 U/L (15-37); SGPT/ALT 22 U/L (13-61); SODIUM 141 mmol/L (136-145); TOT PROT 6.2 g/dl (6.4-8.2)
--- NOTE | 2018-10-06 14:34 | PN ---
S COWS - Scale Resting Pulse: 0= [place] 80 or Below Sweatin= Chills/Flushing Restless Observation: 1= Difficult to Sit Still Pupil Size: 1= Pupils >than Normal Bone or Joint Aches: 2= Severe Diffuse Aches Runny Nose/ Eye Tearin= Nasal Congestion GI Upset > 30mins: 1= Stomach Cramp Tremor Observation of Outstretched Hands: 2= Slight Tremor Visible Yawning Observation: 2= >3x During Session Anxiety or Irritability: 1=Feels Anxious/Irritable Goose Flesh Skin: 0=Smooth Skin COWS Score: 12 S Progress Note (SOAP) Subjective: joints pain body aches muscle cramping tremor sweat Objective: 10/06/18 14:36 Vital Signs Temperature 97.5 F L 10/06/18 07:12 Pulse Rate 76 10/06/18 07:12 Respiratory Rate 18 10/06/18 07:12 Blood Pressure 110/62 10/06/18 07:12 O2 Sat by Pulse Oximetry (%) Laboratory Last Values WBC 6.7 K/mm3 (4.0-10.0) 10/06/18 07:15 RBC 4.29 M/mm3 (4.00-5.60) 10/06/18 07:15 Hgb 13.9 GM/dL (11.7-16.9) 10/06/18 07:15 Hct 39.4 % (35.4-49) 10/06/18 07:15 MCV 91.8 fl (80-96) 10/06/18 07:15 MCH 32.5 pg (25.7-33.7) 10/06/18 07:15 MCHC 35.3 g/dl (32.0-35.9) 10/06/18 07:15 RDW 13.7 % (11.9-15.9) 10/06/18 07:15 Plt Count 202 K/MM3 (134-434) 10/06/18 07:15 MPV 10.0 fl (7.5-11.1) 10/06/18 07:15 Sodium 141 mmol/L (136-145) 10/06/18 07:15 Potassium 4.2 mmol/L (3.5-5.1) 10/06/18 07:15 Chloride 105 mmol/L (98-107) 10/06/18 07:15 Carbon Dioxide 29 mmol/L (21-32) 10/06/18 07:15 Anion Gap 7 MMOL/L (8-16) L 10/06/18 07:15 BUN 15 mg/dL (7-18) 10/06/18 07:15 Creatinine 0.8 mg/dL (0.55-1.3) 10/06/18 07:15 Creat Clearance w eGFR > 60 (>60) 10/06/18 07:15 Random Glucose 88 mg/dL (74-106) 10/06/18 07:15 Calcium 8.1 mg/dL (8.5-10.1) L 10/06/18 07:15 Total Bilirubin 0.2 mg/dL (0.2-1) 10/06/18 07:15 AST 17 U/L (15-37) 10/06/18 07:15 ALT 22 U/L (13-61) 10/06/18 07:15 Alkaline Phosphatase 68 U/L (45-117) 10/06/18 07:15 Total Protein 6.2 g/dl (6.4-8.2) L 10/06/18 07:15 Albumin 3.2 g/dl (3.4-5.0) L 10/06/18 07:15 RPR Titer Nonreactive (NONREACTIVE) 10/06/18 07:15 lab noted Assessment: 10/06/18 14:37 withdrawal sx Plan: continue detox
[2018-10-06] MEDS: diazePAM 5 MG TABLET PO PRN ×2 (17:31→22:31)
[2018-10-06 22:16] VITALS: BP 128/81; PULSE 89; TEMP 96.1
[2018-10-06] MEDS: THIAMINE HCL 100 MG TABLET (FP) PO SCH (22:30)
[2018-10-06] MEDS: MELATONIN 5 MG TABLETS PO PRN (22:31)
--- NOTE | 2018-10-07 07:52 | DS ---
[facility] Detox Discharge Summary Admission Date: 10/05/18 Discharge Date: 10/07/18 - History Additional Comments: Patient is leaving against medical advice. Risks and consequences of his action reinforced. Patient reports that he has to leave for personal reasons. Patient is medically stable. No withdrawal symptoms noted at this time. Vital signs stable. Pertinent Past History: OIpioid dependence , alcohol dependence, nicotine dependence - Physical Exam Results Vital Signs: Vital Signs Temperature 96.1 F L 10/06/18 22:15 Pulse Rate 89 10/06/18 22:15 Respiratory Rate 18 10/07/18 03:30 Blood Pressure 128/81 10/06/18 22:15 O2 Sat by Pulse Oximetry (%) Laboratory Last Values WBC 6.7 K/mm3 (4.0-10.0) 10/06/18 07:15 RBC 4.29 M/mm3 (4.00-5.60) 10/06/18 07:15 Hgb 13.9 GM/dL (11.7-16.9) 10/06/18 07:15 Hct 39.4 % (35.4-49) 10/06/18 07:15 MCV 91.8 fl (80-96) 10/06/18 07:15 MCH 32.5 pg (25.7-33.7) 10/06/18 07:15 MCHC 35.3 g/dl (32.0-35.9) 10/06/18 07:15 RDW 13.7 % (11.9-15.9) 10/06/18 07:15 Plt Count 202 K/MM3 (134-434) 10/06/18 07:15 MPV 10.0 fl (7.5-11.1) 10/06/18 07:15 Sodium 141 mmol/L (136-145) 10/06/18 07:15 Potassium 4.2 mmol/L (3.5-5.1) 10/06/18 07:15 Chloride 105 mmol/L (98-107) 10/06/18 07:15 Carbon Dioxide 29 mmol/L (21-32) 10/06/18 07:15 Anion Gap 7 MMOL/L (8-16) L 10/06/18 07:15 BUN 15 mg/dL (7-18) 10/06/18 07:15 Creatinine 0.8 mg/dL (0.55-1.3) 10/06/18 07:15 Creat Clearance w eGFR > 60 (>60) 10/06/18 07:15 Random Glucose 88 mg/dL (74-106) 10/06/18 07:15 Calcium 8.1 mg/dL (8.5-10.1) L 10/06/18 07:15 Total Bilirubin 0.2 mg/dL (0.2-1) 10/06/18 07:15 AST 17 U/L (15-37) 10/06/18 07:15 ALT 22 U/L (13-61) 10/06/18 07:15 Alkaline Phosphatase 68 U/L (45-117) 10/06/18 07:15 Total Protein 6.2 g/dl (6.4-8.2) L 10/06/18 07:15 Albumin 3.2 g/dl (3.4-5.0) L 10/06/18 07:15 RPR Titer Nonreactive (NONREACTIVE) 10/06/18 07:15 Pertinent Admission Physical Exam Findings: Alcohol and opioid withdrawal symptoms - Medication Discharge Medications: Ambulatory Orders NK [No Known Home Medication] 08/18/18 - Diagnosis (1) Nicotine dependence Current Visit: Yes Status: Chronic Qualifiers: Nicotine product type: cigarettes Substance use status: uncomplicated Qualified Code(s): F17.210 - Nicotine dependence, cigarettes, uncomplicated (2) Opioid dependence with withdrawal Current Visit: Yes Status: Chronic (3) Alcohol dependence with uncomplicated withdrawal Current Visit: No Status: Chronic (4) Cellulitis Current Visit: No Status: Chronic Qualifiers: Site of cellulitis: extremity Site of cellulitis of extremity: lower extremity Laterality: left Qualified Code(s): L03.116 - Cellulitis of left lower limb (5) Cannabis dependence Current Visit: No Status: Chronic (6) Opioid dependence Current Visit: No Status: Chronic (7) PCP dependence. Current Visit: No Status: Chronic - AMA Did Patient Leave Against Medical Advice: Yes
[2018-10-07] MEDS ORDERED: METHADONE HCL 5 MG TABLET (FOR DETOX USE ONLY) PO ONE (10:00)
[2018-10-08] MEDS ORDERED: METHADONE HCL 5 MG TABLET (FOR DETOX USE ONLY) PO ONE (10:00)
[2018-10-09] MEDS ORDERED: METHADONE HCL 10 MG TABLET (FOR DETOX USE ONLY) PO ONE (10:00)
[2018-10-10] MEDS ORDERED: METHADONE HCL 5 MG TABLET (FOR DETOX USE ONLY) PO ONE (06:00)
== END 2018-10-07 07:45 | disposition left against medical advice (07) | DRG 770 ==
LOC: YASAS 11:42 → Y6N 14:28
PROC: HZ2ZZZZ Detoxification Services for Substance Abuse Treatment (ICD-10-PCS; principal; 2018-10-05)
DX: F11.23 Opioid dependence with withdrawal (principal); F16.20 Hallucinogen dependence, uncomplicated; F12.20 Cannabis dependence, uncomplicated; F17.210 Nicotine dependence, cigarettes, uncomplicated; F19.24 Other psychoactive substance dependence with psychoactive substance-induced mood disorder; F39 Unspecified mood [affective] disorder; F31.9 Bipolar disorder, unspecified; Z87.2 Personal history of diseases of the skin and subcutaneous tissue
CPT/HCPCS: 36415; 80053; 85027; 86593

== ENCOUNTER 2019-05-07 09:49 | Inpatient (IN) | payer OTHER ==
[2019-05-07 13:17] VITALS: BMI 27.9
--- NOTE | 2019-05-07 14:21 | HP ---
COWS - Scale Resting Pulse: 0= [place] 80 or Below Sweatin= Chills/Flushing Restless Observation: 1= Difficult to Sit Still Pupil Size: 0= Normal to Room Light Bone or Joint Aches: 1= Mild Discomfort Runny Nose/ Eye Tearin= Nasal Congestion GI Upset > 30mins: 1= Stomach Cramp Tremor Observation: 1= Tremor [place], Not Seen Yawning Observation: 1= 1-2x During Session Anxiety or Irritability: 1=Feels Anxious/Irritable Goose Flesh Skin: 0=Smooth Skin COWS Score: 8 CIWA Score - Admission Criteria [facility]ASAS Guidelines: Admission for Medically Managed Detox: Requires at least one of the followin. CIWA greater than 12 2. Seizures within the past 24 hours 3. Delirium tremens within the past 24 hours 4. Hallucinations within the past 24 hours 5. Acute intervention needed for co occurring medical disorder 6. Acute intervention needed for co occurring psychiatric disorder 7. Severe withdrawal that cannot be handled at a lower level of care (continued vomiting, continued diarrhea, abnormal vital signs) requiring intravenous medication and/or fluids 8. Admission [facility] Chief Complaint: opioid withdrawal sx Allergies/Adverse Reactions: Allergies Allergy/AdvReac Type Severity Reaction Status Date / Time No Known Allergies Allergy Verified 05/07/19 13:12 History of Present Illness: Patient is a 44 yo male with hx of heroin dependence is here seeking inpatient detox d/t withdrawal sx, plan to return to [place] post detox. Attempted MAT with Bup, stopped taking mediation and relapse. PMHX: denies Psych: insomnia Overdose x 2 with last episode two years ago Denies hx of seizures or syncope Denies SI/HI Others' Prescriptions Patient Name: Salvador Collazo Date: 1975 Address: [address] [place] [address] Sex: Male Rx Written Rx Dispensed Drug Quantity Days Supply Prescriber Name 03/21/2019 03/21/2019 buprenorphine-naloxone 8-2 mg sl film 30 15 Tyrese Saavedra MD Patient Name: Salvador Collazo Date: 1975 Address: [address] [place] [address] Sex: Male Rx Written Rx Dispensed Drug Quantity Days Supply Prescriber Name 03/15/2019 03/16/2019 chlordiazepoxide 25 mg capsule 18 3 Franklyn Cuellar Patient Name: Salvador Abdi Date: 1975 Address: [address] [place] [address] Sex: Male Rx Written Rx Dispensed Drug Quantity Days Supply Prescriber Name 02/11/2019 02/11/2019 buprenorphine-naloxone 8-2 mg sl film 42 21 Carissa Carney 01/28/2019 01/28/2019 buprenorphine-naloxone 8-2 mg sl film 28 14 Carissa Carney 01/21/2019 01/21/2019 buprenorphine-naloxone 8-2 mg sl film 16 8 Carissa Valdovinos Patient Name: Salvador Collazo Date: 1975 Address: [address] [place] [address] Sex: Male Rx Written Rx Dispensed Drug Quantity Days Supply Prescriber Name 01/14/2019 01/15/2019 suboxone 8 mg-2 mg sl film 16 8 Carissa Polk 01/07/2019 01/07/2019 suboxone 12 mg-3 mg sl film 7 7 Carissa Polk 12/31/2018 01/01/2019 suboxone 12 mg-3 mg sl film 7 7 Carissa Polk Exam Limitations: No Limitations - Ebola screening Have you traveled outside of the country in the last 21 days: No (N) Have you had contact with anyone from an Ebola affected area: No Do you have a fever: No - Review of Systems Constitutional: Changes in sleep EENT: reports: No Symptoms Reported Respiratory: reports: No Symptoms reported Cardiac: reports: No Symptoms Reported GI: reports: Poor Appetite, Poor Fluid Intake, Abdominal cramping : reports: No Symptoms Reported Musculoskeletal: reports: No Symptoms Reported Integumentary: reports: Other (sunburn head) Neuro: reports: No Symptoms reported Endocrine: reports: Increased Thirst Hematology: reports: No Symptoms Reported Psychiatric: reports: Anxious Other Systems: Reviewed and Negative Patient History - Patient Medical History Hx Anemia: No Hx Asthma: No Hx Chronic Obstructive Pulmonary Disease (COPD): No Hx Cancer: No Hx Cardiac Disorders: No Hx Congestive Heart Failure: No Hx Hypertension: No Hx Hypercholesterolemia: No Hx Pacemaker: No HX Cerebrovascular Accident: No Hx Seizures: No Hx Dementia: No Hx Diabetes: No Hx Gastrointestinal Disorders: No Hx Liver Disease: No Hx Genitourinary Disorders: No Hx Sexually Transmitted Disorders: No Hx Renal Disease (ESRD): No Hx Thyroid Disease: No Hx Human Immunodeficiency Virus (HIV): No Hx Hepatitis C: No Hx Depression: Yes Hx Suicide Attempt: No Hx Bipolar Disorder: Yes ('mood disorder') Hx Schizophrenia: No - Patient Surgical History Past Surgical History: No Hx Neurologic Surgery: No Hx Cataract Extraction: No Hx Cardiac Surgery: No Hx Lung Surgery: No Hx Breast Surgery: No Hx Breast Biopsy: No Hx Abdominal Surgery: No Hx Appendectomy: No Hx Cholecystectomy: No Hx Genitourinary Surgery: No Hx Section: No Hx Orthopedic Surgery: No Other Surgical History: left calf abscess drained 2016 Anesthesia Reaction: No - PPD History Previous Implant?: No Documented Results: Negative w/proof Date: 04/06/18 (quantefron) Results: 0MM PPD to be Administered?: No - Smoking Cessation Smoking history: Current some day smoker Have you smoked in the past 12 months: Yes Aproximately how many cigarettes per day: 2 Cigars Per Day: 0 Hx Chewing Tobacco Use: No Initiated information on smoking cessation: Yes 'Breaking Loose' booklet given: 05/07/19 - Substance & Tx. History Hx Alcohol Use: Yes Hx Substance Use: Yes Substance Use Type: Alcohol, Heroin Hx Substance Use Treatment: Yes (Last detox [facility] June 2018 AMA ) - Substances abused Alcohol Substance route: Oral Frequency: 3-6 times per week Amount used: 2-3 x 12 oz beers Age of first use: 15 Date of last use: 05/02/19 Heroin Substance route: Inhalation Frequency: Daily Amount used: 2-4bags Age of first use: 23 Date of last use: 05/07/19 Family Disease History - Family Disease History Family Disease History: Diabetes: Grandparent, Heart Disease: Grandparent, Mother (living, hx cva,psych issues), Other: Father (HIV/AIDS , iv drug user ), Mother, Son (age 14, ), Daughter (age 13) Admission Physical Exam S - Vital Signs Vital Signs: Vital Signs - 24 hr 05/07/19 13:08 Temperature 98.3 F Pulse Rate 77 Respiratory 17 Rate Blood Pressure 103/64 - Physical General Appearance: Yes: Appropriately Dressed, Anxious HEENTM: Yes: Hearing grossly Normal, Normal ENT Inspection, Normocephalic, Normal Voice, TALIB, Pharynx Normal, Tm's normal, Other (cheilithis, dry mucous membranes) Respiratory: Yes: Chest Non-Tender, Lungs Clear, Normal Breath Sounds, No Respiratory Distress Neck: Yes: Within Normal Limits Breast: Yes: Breast Exam Deferred Cardiology: Yes: Regular Rhythm, Regular Rate Abdominal: Yes: Normal Bowel Sounds, Non Tender, Flat, Soft Genitourinary: Yes: Within Normal Limits Back: Yes: Normal Inspection Extremities: Yes: Normal Capillary Refill, Normal Inspection, Normal Range of Motion, Non-Tender Neurological: Yes: electrical continuity tester II-XII NML intact, Fully Oriented, Alert, Motor Strength 5/5, Normal Response, Depressed Affect Integumentary: Yes: Normal Color, Dry, Warm, Other (sunburn lesion head) Lymphatic: Yes: Within Normal Limits - Diagnostic (1) Lesion of skin of scalp Current Visit: Yes Status: Acute (2) At risk for dehydration due to poor fluid intake Current Visit: Yes Status: Acute (3) Nicotine dependence Current Visit: Yes Status: Chronic Qualifiers: Nicotine product type: cigarettes Substance use status: uncomplicated Qualified Code(s): F17.210 - Nicotine dependence, cigarettes, uncomplicated (4) Opioid dependence with withdrawal Current Visit: Yes Status: Acute Cleared for Admission S - Detox or Rehab [facility] Level of Care: Medically Managed Detox Regimen/Protocol: Methadone Inpatient Rehab Admission - Rehab Decision to Admit Inpatient rehab admission?: No
[2019-05-07] MEDS ORDERED: cloNIDine HCL 0.1 MG TABLET PO PRN (14:23)
[2019-05-07] MEDS ORDERED: MENTHOL/PHENOL 1 EACH UD MM PRN (14:23)
[2019-05-07] MEDS ORDERED: BISMUTH SUBSALICYLATE 524 MG/30 ML UD PO PRN (14:23)
[2019-05-07] MEDS ORDERED: MAGNESIUM CITRATE 300 ML BOTTLE PO PRN (14:23)
[2019-05-07] MEDS ORDERED: MAGNESIUM HYDROX 2400MG/30ML ORAL SUSPENSION 30 ML CUP PO PRN (14:23)
[2019-05-07] MEDS ORDERED: MAG HYDROX/AL HYDROX/SIMETH 30 ML UNIT-DOSE CUP PO PRN (14:23)
[2019-05-07] MEDS ORDERED: METHOCARBAMOL 500 MG TABLET PO PRN (14:23)
[2019-05-07] MEDS ORDERED: NICOTINE POLACRILEX 2 MG GUM BUC PRN (14:23)
[2019-05-07] MEDS ORDERED: IBUPROFEN 400 MG TABLET (FP) PO PRN (14:23)
[2019-05-07] MEDS ORDERED: ACETAMINOPHEN 325 MG TABLET (FP) PO PRN ×2 (14:23)
[2019-05-07] MEDS ORDERED: BACITRACIN 15 GM TUBE TOPICAL OINTMENT TP ONE (16:00)
[2019-05-07] MEDS ORDERED: METHADONE HCL 10 MG TABLET (FOR DETOX USE ONLY) PO ONE (16:00)
[2019-05-07 17:26] LABS: HEMATOCRIT 44.3 % (35.4-49); HEMOGLOBIN 14.8 GM/dL (11.7-16.9); MCH 31.1 pg (25.7-33.7); MCHC 33.5 g/dl (32.0-35.9); MEAN CELL VOLUME 92.9 fl (80-96); MEAN PLT VOLUME 9.7 fl (7.5-11.1); PLATELET COUNT 191 K/MM3 (134-434); RBC 4.77 M/mm3 (4.00-5.60); RDW 13.2 % (11.9-15.9); WHITE BLOOD COUNT 5.7 K/mm3 (4.0-10.0)
[2019-05-07 17:32] LABS: ALBUMIN 3.8 g/dl (3.4-5.0); BILIRUBIN,TOTAL 0.4 mg/dL (0.2-1); BLOOD UREA NITROGEN 14.8 mg/dL (7-18); CALCIUM 8.4 mg/dL (8.5-10.1); CREATININE 0.8 mg/dL (0.55-1.3); TOT PROT 7.2 g/dl (6.4-8.2)
[2019-05-07] MEDS: MELATONIN 5 MG TABLETS PO PRN (22:21)
[2019-05-07] MEDS: THIAMINE HCL 100 MG TABLET (FP) PO SCH (22:21)
[2019-05-08 06:20] LABS: PH,URINE 5.5 (5.0-8.0); URINE APPEARANCE TURBID; URINE BILIRUBIN NEGATIVE (NEGATIVE); URINE COLOR YELLOW; URINE GLUCOSE (UA) NEGATIVE (NEGATIVE); URINE KETONE TRACE (NEGATIVE); URINE LEUK ESTERASE NEGATIVE (NEGATIVE); URINE NITRITE NEGATIVE (NEGATIVE); URINE PROTEIN NEGATIVE (NEGATIVE)
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
[2019-05-08] MEDS ORDERED: METHADONE HCL 5 MG TABLET (FOR DETOX USE ONLY) PO ONE (10:00)
[2019-05-08] MEDS: PRENATAL VITAMINS W/ FOLIC ACID TABLET (FP) PO SCH (10:23)
--- NOTE | 2019-05-08 12:41 | PN ---
BHS COWS - Scale Resting Pulse: 0= [place] 80 or Below Sweatin= Chills/Flushing Restless Observation: 1= Difficult to Sit Still Pupil Size: 0= Normal to Room Light Bone or Joint Aches: 1= Mild Discomfort Runny Nose/ Eye Tearin= Nasal Congestion GI Upset > 30mins: 0= None Tremor Observation of Outstretched Hands: 1= Tremor [place], Not Seen Yawning Observation: 0= None Anxiety or Irritability: 2=Irritable/Anxious Goose Flesh Skin: 0=Smooth Skin COWS Score: 7 BHS Progress Note (SOAP) Subjective: anxiety restless Objective: 05/08/19 12:41 Vital Signs Temperature 96.7 F L 05/08/19 09:49 Pulse Rate 60 05/08/19 09:49 Respiratory Rate 18 05/08/19 09:49 Blood Pressure 101/75 05/08/19 09:49 O2 Sat by Pulse Oximetry (%) Laboratory Tests 05/07/19 05/07/19 05/07/19 14:25 14:25 16:00 WBC 5.7 RBC 4.77 Hgb 14.8 Hct 44.3 MCV 92.9 MCH 31.1 MCHC 33.5 RDW 13.2 Plt Count 191 MPV 9.7 Sodium 137 Potassium 4.0 Chloride 103 Carbon Dioxide 30 Anion Gap 4 L BUN 14.8 Creatinine 0.8 Est GFR (CKD-EPI)AfAm 127.70 Est GFR (CKD-EPI)NonAf 110.18 Random Glucose 94 Calcium 8.4 L Total Bilirubin 0.4 AST 22 ALT 25 Alkaline Phosphatase 73 Total Protein 7.2 Albumin 3.8 Urine Color Yellow Urine Appearance Turbid Urine pH 5.5 Ur Specific [place] 1.029 Urine Protein Negative Urine Glucose (UA) Negative Urine Ketones Trace H Urine Blood Negative Urine Nitrite Negative Urine Bilirubin Negative Urine Urobilinogen 1.0 Ur Leukocyte Esterase Negative aaox3 ambulating no acute distress Assessment: 05/08/19 12:41 withdrawal sx Plan: continue detox increase fluids
[2019-05-08] MEDS ORDERED: COLLOIDAL OATMEAL 1 BAR EACH TP ONE (14:38)
[2019-05-08] MEDS: MIRTAZAPINE 30 MG TABLET (FP) PO SCH (22:14)
[2019-05-08] MEDS: THIAMINE HCL 100 MG TABLET (FP) PO SCH (22:14)
[2019-05-09] MEDS ORDERED: METHADONE HCL 10 MG TABLET (FOR DETOX USE ONLY) PO ONE (10:00)
[2019-05-09] MEDS: PRENATAL VITAMINS W/ FOLIC ACID TABLET (FP) PO SCH (10:37)
--- NOTE | 2019-05-09 12:27 | PN ---
BHS COWS - Scale Resting Pulse: 0= [place] 80 or Below Sweatin= No chills or Flushing Restless Observation: 1= Difficult to Sit Still Pupil Size: 0= Normal to Room Light Bone or Joint Aches: 1= Mild Discomfort Runny Nose/ Eye Tearin= None GI Upset > 30mins: 0= None Tremor Observation of Outstretched Hands: 0= None Yawning Observation: 0= None Anxiety or Irritability: 0= None Goose Flesh Skin: 0=Smooth Skin COWS Score: 2 BHS Progress Note (SOAP) Subjective: i need bacitracin for my small cuts on my scalp little anxiety Objective: 05/09/19 12:26 Vital Signs Temperature 97.5 F L 05/09/19 09:56 Pulse Rate 68 05/09/19 09:56 Respiratory Rate 18 05/09/19 09:56 Blood Pressure 122/63 05/09/19 09:56 O2 Sat by Pulse Oximetry (%) Laboratory Tests 05/07/19 05/07/19 05/07/19 14:25 14:25 14:25 WBC 5.7 RBC 4.77 Hgb 14.8 Hct 44.3 MCV 92.9 MCH 31.1 MCHC 33.5 RDW 13.2 Plt Count 191 MPV 9.7 Sodium 137 Potassium 4.0 Chloride 103 Carbon Dioxide 30 Anion Gap 4 L BUN 14.8 Creatinine 0.8 Est GFR (CKD-EPI)AfAm 127.70 Est GFR (CKD-EPI)NonAf 110.18 Random Glucose 94 Calcium 8.4 L Total Bilirubin 0.4 AST 22 ALT 25 Alkaline Phosphatase 73 Total Protein 7.2 Albumin 3.8 Urine Color Urine Appearance Urine pH Ur Specific [place] Urine Protein Urine Glucose (UA) Urine Ketones Urine Blood Urine Nitrite Urine Bilirubin Urine Urobilinogen Ur Leukocyte Esterase RPR Titer Nonreactive HIV 1&2 Antibody Screen HIV P24 Antigen TB Test (QFT) Nil TB Test (QFT) Mitogen TB Test (QFT) Antigen TB Test (QFT) TB Positive Criteria 05/07/19 05/07/19 05/07/19 14:25 14:25 16:00 WBC RBC Hgb Hct MCV MCH MCHC RDW Plt Count MPV Sodium Potassium Chloride Carbon Dioxide Anion Gap BUN Creatinine Est GFR (CKD-EPI)AfAm Est GFR (CKD-EPI)NonAf Random Glucose Calcium Total Bilirubin AST ALT Alkaline Phosphatase Total Protein Albumin Urine Color Yellow Urine Appearance Turbid Urine pH 5.5 Ur Specific [place] 1.029 Urine Protein Negative Urine Glucose (UA) Negative Urine Ketones Trace H Urine Blood Negative Urine Nitrite Negative Urine Bilirubin Negative Urine Urobilinogen 1.0 Ur Leukocyte Esterase Negative RPR Titer HIV 1&2 Antibody Screen Negative HIV P24 Antigen Negative TB Test (QFT) Nil 0.02 TB Test (QFT) Mitogen >10.00 TB Test (QFT) Antigen 0.02 TB Test (QFT) Negative TB Positive Criteria labs noted aaox3 ambulating no acute distress Assessment: 05/09/19 12:26 mild withdrawal sx small superficial cuts on scalp from shaving Plan: continue detox bacitracin oint ordered increase fludis d/c in am
[2019-05-09] MEDS ORDERED: BACITRACIN 15 GM TUBE TOPICAL OINTMENT TP SCH (12:30)
[2019-05-09 21:17] VITALS: TEMP 97.3
[2019-05-09] MEDS: MIRTAZAPINE 30 MG TABLET (FP) PO SCH (22:20)
[2019-05-09] MEDS: THIAMINE HCL 100 MG TABLET (FP) PO SCH (22:20)
[2019-05-09] MEDS: MELATONIN 5 MG TABLETS PO PRN (22:21)
[2019-05-10] MEDS ORDERED: METHADONE HCL 5 MG TABLET (FOR DETOX USE ONLY) PO ONE ×2 (06:00→06:30)
[2019-05-10 06:47] VITALS: BP 118/74; PULSE 64
--- NOTE | 2019-05-10 14:07 | DS ---
[facility] Detox Discharge Summary Admission Date: 05/07/19 Discharge Date: 05/10/19 - History Present History: Alcohol Dependence, Opioid Dependence Additional Comments: Pt is medically cleared and is discharged today. Pt completed his detox protocol. As per counselor's notes, "Counselor met with patient to discuss his aftercare plans. He states he will return to [facility] where he is comfortable with staff and patients. We discuss the importance of making changes in his life to avoid the negative peers. Patient was also encouraged to attend 12 step groups for additional support". Pt is encouraged to follow-up with an outpatient CD program as discussed with his counselor and also to follow-up with his PMD. Pt verbalized understanding. Pt is alert and oriented x3, in no respiratory distress. Pertinent Past History: h/o alcohol and heroin use disorder - Physical Exam Results Vital Signs: Vital Signs Temperature 97.3 F L 05/10/19 06:00 Pulse Rate 64 05/10/19 06:00 Respiratory Rate 18 05/10/19 06:00 Blood Pressure 118/74 05/10/19 06:00 O2 Sat by Pulse Oximetry (%) Vital Signs - 24 hr 05/09/19 05/09/19 05/10/19 16:58 21:16 00:30 Temperature 97.9 F 97.3 F L Pulse Rate 58 L 82 Respiratory 18 18 18 Rate Blood Pressure 107/69 121/71 05/10/19 05/10/19 03:30 06:00 Temperature 97.3 F L Pulse Rate 64 Respiratory 18 18 Rate Blood Pressure 118/74 Lab Results WBC 5.7 K/mm3 (4.0-10.0) 05/07/19 14:25 RBC 4.77 M/mm3 (4.00-5.60) 05/07/19 14:25 Hgb 14.8 GM/dL (11.7-16.9) 05/07/19 14:25 Hct 44.3 % (35.4-49) 05/07/19 14:25 MCV 92.9 fl (80-96) 05/07/19 14:25 MCHC 33.5 g/dl (32.0-35.9) 05/07/19 14:25 RDW 13.2 % (11.9-15.9) 05/07/19 14:25 Plt Count 191 K/MM3 (134-434) 05/07/19 14:25 Sodium 137 mmol/L (136-145) 05/07/19 14:25 Potassium 4.0 mmol/L (3.5-5.1) 05/07/19 14:25 Chloride 103 mmol/L (98-107) 05/07/19 14:25 Carbon Dioxide 30 mmol/L (21-32) 05/07/19 14:25 Anion Gap 4 MMOL/L (8-16) L 05/07/19 14:25 BUN 14.8 mg/dL (7-18) 05/07/19 14:25 Creatinine 0.8 mg/dL (0.55-1.3) 05/07/19 14:25 Random Glucose 94 mg/dL (74-106) 05/07/19 14:25 Calcium 8.4 mg/dL (8.5-10.1) L 05/07/19 14:25 Labs noted. Pertinent Admission Physical Exam Findings: withdrawal symptoms. - Treatment Hospital Course: Detox Protocol Followed, Detoxed Safely, Responded well, Discharged Condition Good - Medication Discharge Medications: Ambulatory Orders Mirtazapine [Remeron -] 30 mg PO HS 05/07/19 - Diagnosis (1) Abrasions of multiple sites Status: Acute (2) Abscess of scrotal wall Status: Acute (3) Alcohol dependence with uncomplicated withdrawal Status: Acute (4) Heroin overdose Status: Acute Qualifiers: Encounter type: initial encounter Injury intent: accidental or unintentional Qualified Code(s): T40.1X1A - Poisoning by heroin, accidental ( unintentional), initial encounter (5) Keloid of skin Status: Acute (6) Right shoulder strain Status: Acute Qualifiers: Encounter type: initial encounter Qualified Code(s): S46.911A - Strain of unspecified muscle, fascia and tendon at shoulder and upper arm level, right arm , initial encounter (7) Cannabis dependence Status: Chronic (8) Nicotine dependence Status: Chronic Qualifiers: Nicotine product type: cigarettes Substance use status: uncomplicated Qualified Code(s): F17.210 - Nicotine dependence, cigarettes, uncomplicated (9) PCP dependence. Status: Chronic - AMA Did Patient Leave Against Medical Advice: No
== END 2019-05-10 09:22 | disposition home or self-care (01) | DRG 773 ==
LOC: YASAS 09:49 → Y6N 15:02
PROVIDERS: ADMIT Surgery; ATTEND Surgery
PROC: HZ2ZZZZ Detoxification Services for Substance Abuse Treatment (ICD-10-PCS; principal; 2019-05-07)
DX: F11.23 Opioid dependence with withdrawal (principal); F10.230 Alcohol dependence with withdrawal, uncomplicated; F12.20 Cannabis dependence, uncomplicated; F17.210 Nicotine dependence, cigarettes, uncomplicated; F19.282 Other psychoactive substance dependence with psychoactive substance-induced sleep disorder; F39 Unspecified mood [affective] disorder; F31.9 Bipolar disorder, unspecified; S00.01XA Abrasion of scalp, initial encounter; X58.XXXA Exposure to other specified factors, initial encounter; Y93.E8 Activity, other personal hygiene; Y92.230 Patient room in hospital as the place of occurrence of the external cause; Y99.8 Other external cause status; Z91.89 Other specified personal risk factors, not elsewhere classified
CPT/HCPCS: 36415; 80053; 81003; 85027; 86480; 86593; 87389

== ENCOUNTER 2019-05-10 12:05 | Emergency (ER) | payer OTHER ==
[2019-05-10 12:38] VITALS: BP 114/77; PULSE 106; TEMP 98.1; BMI 28.1
--- NOTE | 2019-05-10 12:54 | PDOC ---
History of Present Illness - General Chief Complaint: Alcohol intoxication Stated Complaint: INTOX History Source: Patient Exam Limitations: No Limitations - History of Present Illness Initial Comments: 05/10/19 12:48 44 yo male h/o substance abuse. recently discharged from [facility] for heroin detox, brought here by EMS. was called by police. pt states he went to AA meeting today, denies substance use today, was walking and someone called the police. pt denies being on ground states he was walking. denies cocain or other drug use. states he was not given any medication by ambulance. would like to go home because he needs to lock up his place. states he is traveling by bus and has a bus pass. denies thoughts of self harm or harm to others. Past History - Past Medical History Allergies/Adverse Reactions: Allergies Allergy/AdvReac Type Severity Reaction Status Date / Time No Known Allergies Allergy Verified 05/10/19 12:30 Home Medications: Ambulatory Orders Mirtazapine [Remeron -] 30 mg PO HS 05/07/19 Anemia: No Asthma: No Cancer: No Cardiac Disorders: No CVA: No COPD: No CHF: No Dementia: No Diabetes: No GI Disorders: No Disorders: No HTN: No Hypercholesterolemia: No Kidney Stones: No Liver Disease: No Seizures: No Thyroid Disease: No - Surgical History Abdominal Surgery: No Appendectomy: No Cardiac Surgery: No Cholecystectomy: No Lung Surgery: No Neurologic Surgery: No Orthopedic Surgery: No - Reproductive History Testicular Surgery: No - Immunization History Immunization Up to Date: Yes - Suicide/Smoking/Psychosocial Hx Smoking Status: No Smoking History: Current every day smoker Have you smoked in the past 12 months: Yes Number of Cigarettes Smoked Daily: 20 Cigars Per Day: 0 Information on smoking cessation initiated: No 'Breaking Loose' booklet given: 05/07/19 Hx Alcohol Use: Yes Drug/Substance Use Hx: Yes Substance Use Type: Alcohol, Heroin Hx Substance Use Treatment: Yes Review of Systems - Review of Systems Constitutional: No: Chills, Diaphoresis, Fever HEENTM: No: Eye Pain, Blurred Vision Respiratory: No: Cough, Orthopnea : No: Burning, Dysuria Musculoskeletal: No: Back Pain, Gout All Other Systems: Reviewed and Negative *Physical Exam - Vital Signs Last Vital Signs Temp Pulse Resp BP Pulse Ox 98.1 F 106 H 20 114/77 98 05/10/19 12:30 07/13/19 12:30 05/10/19 12:30 05/10/19 12:30 05/10/19 12:30 - Physical Exam Comments: 05/10/19 12:50 awake alert lungs clear bilaterally heart rrr no mrg abd soft nt nd ext wwp speech clear. pt gait normal. calm and directable. skin warm and dry. Medical Decision Making - Medical Decision Making 05/10/19 12:51 44 yo male h/o substance abuse just dc from [facility], here for concerns by bystanders. pt is currently awake alert ambulating wihtout difficulty. will dc to home. pt has bus pass. told to return for any problems or concerns. *DC/Admit/Observation/Transfer Diagnosis at time of Disposition: Substance abuse - Discharge Dispostion Disposition: HOME Decision to Admit order: No - Referrals - Patient Instructions Printed Discharge Instructions: Opioid Addiction Additional Instructions: you should follow up with your primary doctor. return for any problems or concerns. continue with your AA meetings. and return to [facility] should you desire any further rehabilitation for your addiction. - Post Discharge Activity
== END 2019-05-10 13:33 | disposition home or self-care (01) ==
LOC: JER 12:05
DX: F19.10 Other psychoactive substance abuse, uncomplicated (principal); F17.210 Nicotine dependence, cigarettes, uncomplicated
CPT/HCPCS: 99282-25

== ENCOUNTER 2019-05-27 23:37 | Emergency (ER) | payer OTHER ==
[2019-05-27 23:51] VITALS: BP 123/79; PULSE 114; TEMP 98.9; BMI 26.8
[2019-05-28] MEDS ORDERED: ACETAMINOPHEN 500 MG TABLET (FP) PO ONE (00:58)
--- NOTE | 2019-05-28 01:01 | PDOC ---
History of Present Illness - General Chief Complaint: Muscle Cramping Stated Complaint: PAINFUL MUSCLES Time Seen by Provider: 05/28/19 00:44 History Source: Patient Exam Limitations: No Limitations - History of Present Illness Initial Comments: 05/28/19 01:55 44yo M with PMH of heroin use disorder presenting to ED with complaints of muscle cramping in bilateral calves that has been on and off for the past 2 hours. Pt states he has had cramps before but it was never this intense. He says he was out of the house all day because he was locked out. He was recently dc from detox a few days ago due to intranasal heroin use. Denies trauma, numbness/tingling, injury, iv drug use, sob, chest pain. Past History - Past Medical History Allergies/Adverse Reactions: Allergies Allergy/AdvReac Type Severity Reaction Status Date / Time No Known Allergies Allergy Verified 05/27/19 23:51 Home Medications: Ambulatory Orders Mirtazapine [Remeron -] 30 mg PO HS 05/07/19 Anemia: No Asthma: No Cancer: No Cardiac Disorders: No CVA: No COPD: No CHF: No Dementia: No Diabetes: No GI Disorders: No Disorders: No HTN: No Hypercholesterolemia: No Kidney Stones: No Liver Disease: No Seizures: No Thyroid Disease: No - Surgical History Abdominal Surgery: No Appendectomy: No Cardiac Surgery: No Cholecystectomy: No Lung Surgery: No Neurologic Surgery: No Orthopedic Surgery: No - Reproductive History Testicular Surgery: No - Immunization History Immunization Up to Date: Yes - Suicide/Smoking/Psychosocial Hx Smoking Status: No Smoking History: Current some day smoker Have you smoked in the past 12 months: Yes Number of Cigarettes Smoked Daily: 2 Cigars Per Day: 0 Information on smoking cessation initiated: No 'Breaking Loose' booklet given: 05/07/19 Hx Alcohol Use: No Drug/Substance Use Hx: No Substance Use Type: Alcohol, Heroin Hx Substance Use Treatment: Yes Review of Systems - Review of Systems Constitutional: No: Symptoms Reported HEENTM: No: Symptoms Reported Respiratory: No: Symptoms reported Cardiac (ROS): No: Symptoms Reported ABD/GI: No: Symptoms Reported : No: Symptoms Reported Musculoskeletal: Yes: See HPI Integumentary: No: Symptoms Reported Neurological: No: Symptoms reported *Physical Exam - Vital Signs Last Vital Signs Temp Pulse Resp BP Pulse Ox 98.9 F 114 H 18 123/79 100 05/27/19 23:44 05/27/19 23:44 05/27/19 23:44 05/27/19 23:44 05/27/19 23:44 - Physical Exam General Appearance: Yes: Nourished, Appropriately Dressed. No: Apparent Distress HEENT: positive: EOMI, TALIB Respiratory/Chest: positive: Lungs Clear, Normal Breath Sounds Cardiovascular: positive: Regular Rhythm, Regular Rate, S1, S2. negative: Edema , JVD, Murmur Vascular Pulses: Dorsalis-Pedis (R): 2+, Doralis-Pedis (L): 2+ Musculoskeletal: positive: Other (bilateral calf tendernes). negative: CVA Tenderness (L), Decreased Range of Motion Extremity: positive: Calf Tenderness. negative: Pedal Edema, Swelling Integumentary: positive: Normal Color, Dry, Warm Neurologic: positive: automobile mechanic motor II-XII NML intact, Fully Oriented, Alert, Normal Mood/ Affect, Normal Response, Motor Strength /5 Medical Decision Making - Medical Decision Making 05/28/19 01:58 44yo M with PMH of heroin use disorder presenting to ED with complaints of muscle cramping in bilateral calves that has been on and off for the past 2 hours. Pt states he has had cramps before but it was never this intense. He says he was out of the house all day because he was locked out. He was recently dc from detox a few days ago due to intranasal heroin use. Denies trauma, numbness/tingling, injury, iv drug use, sob, chest pain. VITALS WNL PE: calf tenderness bilaterally likely muscle cramping and tenderness due to contractions. Pt not actively having cramps. electrolytes from 05/07/19 were normal. does not need new labs at this time. will give tylenol for pain and dc home. given return precautions. *DC/Admit/Observation/Transfer Diagnosis at time of Disposition: Muscle cramps - Discharge Dispostion Disposition: HOME Condition at time of disposition: Improved Decision to Admit order: No - Referrals Referrals: [facility] Internal [facility] [Provider Group] - Patient Instructions Additional Instructions: You were seen in the emergency room today for pain in the legs. This is due to muscle cramping which could have been due to dehydration. Keep yourself well hydrated. You can take Tylenol for the pain as needed. Do light stretching to reduce the cramping pain. Come back to the emergency room if pain gets worse, you are unable to walk or if any new concerning symptom develops. Thank you - Post Discharge Activity
[2019-05-28] MEDS ORDERED: ACETAMINOPHEN 325 MG TABLET (FP) ONE (01:04)
--- NOTE | 2019-05-28 01:22 | PDOC ---
Attending Attestation - Resident Resident Name: Fabiana Sanders - ED Attending Attestation I have performed the following: I have examined & evaluated the patient, The case was reviewed & discussed with the resident, I agree w/resident's findings & plan, Exceptions are as noted - HPI HPI: 05/28/19 01:17 44 yo male had muscle cramps in his lower legs earlier and now has some muscle soreness he is afebrile and has good dp,pt pulses in his legs -he has no erythema or swelling to his legs, motor strength 5/5 b/l and sensation is intact imp muscle cramps pt had been out in the sun for many hours today,encouraged to stay hydrated - Physicial Exam PE: 05/28/19 01:22 [id number] 44 yo male ambulating with ease head ncat neck supple lungs cta b/l cvs [id number] abd nontender skin warm and dry legs motor strength 5/5 b/l, sensation intact ,dtr +2,no erythema, no edema neuro axox3,ambulatory psych anxious,manic - Medical Decision Making 05/28/19 01:26 imp muscle cramps, d/c home
== END 2019-05-28 02:02 | disposition home or self-care (01) ==
LOC: JER 23:37
DX: R25.2 Cramp and spasm (principal)
CPT/HCPCS: 99281-25

== ENCOUNTER 2019-11-01 17:15 | Inpatient (IN) | payer OTHER ==
[2019-11-01 18:34] VITALS: BMI 28.9
--- NOTE | 2019-11-01 21:33 | HP ---
COWS - Scale Resting Pulse: 1= W[place] 81-100 Sweatin=Flushed/Facial Moisture Restless Observation: 1= Difficult to Sit Still Pupil Size: 1= Pupils >than Normal Bone or Joint Aches: 2= Severe Diffuse Aches Runny Nose/ Eye Tearin= Runny Nose/Eyes GI Upset > 30mins: 1= Stomach Cramp Tremor Observation: 2= Slight Tremor Visible Yawning Observation: 0= None Anxiety or Irritability: 2=Irritable/Anxious Goose Flesh Skin: 0=Smooth Skin COWS Score: 14 CIWA Score Nausea/Vomitin Muscle Tremors: 4-Moderate,w/Arms Extend Anxiety: 3 Agitation: 2 Paroxysmal Sweats: 2 Orientation: 0-Oriented Tacttile Disturbances: 2-Mild Itch/Numbness/Burn Auditory Disturbances: 2-Mild Harshness/Frighten Visual Disturbances: 2-Mild Sensitivity Headache: 1-Very Mild CIWA-Ar Total Score: 20 - Admission Criteria [facility] Guidelines: Admission for Medically Managed Detox: Requires at least one of the followin. CIWA greater than 12 2. Seizures within the past 24 hours 3. Delirium tremens within the past 24 hours 4. Hallucinations within the past 24 hours 5. Acute intervention needed for co occurring medical disorder 6. Acute intervention needed for co occurring psychiatric disorder 7. Severe withdrawal that cannot be handled at a lower level of care (continued vomiting, continued diarrhea, abnormal vital signs) requiring intravenous medication and/or fluids 8. Admitting History and Physical - Smoking History Smoking history: Current some day smoker Have you smoked in the past 12 months: Yes Aproximately how many cigarettes per day: 2 - Alcohol/Substance Use Hx Alcohol Use: No Admission ROS S - HPI Chief Complaint: DEPENDENT ON ETOH AND HEROIN Allergies/Adverse Reactions: Allergies Allergy/AdvReac Type Severity Reaction Status Date / Time No Known Allergies Allergy Verified 11/01/19 18:24 History of Present Illness: THE PT. IS REQUESTING ADMISSION TO THE DETOX UNIT AND CAME FOR MEDICAL CLEARANCE Exam Limitations: No Limitations - Ebola screening Have you traveled outside of the country in the last 21 days: No (N) Have you had contact with anyone from an Ebola affected area: No Do you have a fever: No - Review of Systems Constitutional: See HPI, Malaise, Weakness EENT: reports: See HPI Respiratory: reports: See HPI Cardiac: reports: See HPI GI: reports: See HPI, Nausea, Abdominal cramping : reports: See HPI Musculoskeletal: reports: See HPI, Muscle Pain, Muscle Weakness Integumentary: reports: See HPI, Flushing, Rash, Sweating Neuro: reports: See HPI, Tremors, Weakness Endocrine: reports: See HPI Hematology: reports: See HPI Psychiatric: reports: Judgement Intact, Orientated x3, Anxious, Depressed Patient History - Patient Medical History Hx Anemia: No Hx Asthma: No Hx Chronic Obstructive Pulmonary Disease (COPD): No Hx Cancer: No Hx Cardiac Disorders: No Hx Congestive Heart Failure: No Hx Hypertension: No Hx Hypercholesterolemia: No Hx Pacemaker: No HX Cerebrovascular Accident: No Hx Seizures: No Hx Dementia: No Hx Diabetes: No Hx Gastrointestinal Disorders: No Hx Liver Disease: No Hx Genitourinary Disorders: No Hx Sexually Transmitted Disorders: No Hx Renal Disease (ESRD): No Hx Thyroid Disease: No Hx Human Immunodeficiency Virus (HIV): No Hx Hepatitis C: No Hx Depression: No Hx Suicide Attempt: No Hx Bipolar Disorder: Yes ('mood disorder') Hx Schizophrenia: No - Patient Surgical History Past Surgical History: Yes Hx Neurologic Surgery: No Hx Cataract Extraction: No Hx Cardiac Surgery: No Hx Lung Surgery: No Hx Breast Surgery: No Hx Breast Biopsy: No Hx Abdominal Surgery: No Hx Appendectomy: No Hx Cholecystectomy: No Hx Genitourinary Surgery: No Hx Section: No Hx Orthopedic Surgery: No Other Surgical History: left calf abscess drained 2017 Anesthesia Reaction: No - PPD History Date: 04/06/18 Results: 0MM - Smoking Cessation Smoking history: Current some day smoker Have you smoked in the past 12 months: Yes Aproximately how many cigarettes per day: 2 Cigars Per Day: 0 Hx Chewing Tobacco Use: No Initiated information on smoking cessation: Yes 'Breaking Loose' booklet given: 11/01/19 - Substance & Tx. History Hx Alcohol Use: Yes Hx Substance Use: Yes Substance Use Type: Alcohol, Heroin Hx Substance Use Treatment: Yes - Substances abused Alcohol Substance route: Oral Frequency: 3-6 times per week Amount used: 2-3 x 12 oz beers Age of first use: 15 Date of last use: 10/29/19 Heroin Substance route: Inhalation Frequency: Daily Amount used: 2-4bags Age of first use: 23 Date of last use: 10/31/19 Admission Physical Exam [facility] - Vital Signs Vital Signs: Vital Signs - 24 hr 11/01/19 18:24 Temperature 98.8 F Pulse Rate 109 H Respiratory 16 Rate Blood Pressure 137/92 - Physical General Appearance: Yes: No Apparent Distress, Nourished, Appropriately Dressed , Tremorous, Sweating, Anxious HEENTM: Yes: Hearing grossly Normal, Normocephalic, Normal Voice, TALIB, Pharynx Normal Respiratory: Yes: Chest Non-Tender, Lungs Clear, Normal Breath Sounds, No Respiratory Distress, No Accessory Muscle Use Neck: Yes: No masses,lesions,Nodules, Supple, Trachea in good position Breast: Yes: Breast Exam Deferred, Axillae without masses Cardiology: Yes: Regular Rhythm, Regular Rate, S1, S2 Abdominal: Yes: Normal Bowel Sounds, Non Tender, Soft, Protuberent Back: Yes: Normal Inspection Musculoskeletal: Yes: full range of Motion, Gait Steady, Pelvis Stable, Muscle Pain, Muscle weakness Extremities: Yes: Normal Capillary Refill, Normal Range of Motion, Non-Tender, Tremors Neurological: Yes: artist relationship manager II-XII NML intact, Fully Oriented, Alert, Motor Strength 5/5, Normal Response Integumentary: Yes: Normal Color, Warm, Rash Lymphatic: Yes: Within Normal Limits Cleared for Admission [facility] - Detox or Rehab [facility] Level of Care: Medically Supervised Detox Regimen/Protocol: Methadone/Librium Breathalyzer - Breathalyzer Breathalyzer: 0 Urine Drug Screen - Test Device Lot number: [id number] Expiration date: 07/28/21 - Control Is test valid?: Yes - Results Drug screen NEGATIVE: No Urine drug screen results: MOP-Opiates Inpatient Rehab Admission - Rehab Decision to Admit Inpatient rehab admission?: No
[2019-11-01] MEDS ORDERED: ACETAMINOPHEN 325 MG TABLET (FP) PO PRN ×2 (21:39)
[2019-11-01] MEDS ORDERED: MENTHOL/PHENOL 1 EACH UD MM PRN (21:39)
[2019-11-01] MEDS ORDERED: MAG HYDROX/AL HYDROX/SIMETH 30 ML UNIT-DOSE CUP PO PRN (21:39)
[2019-11-01] MEDS ORDERED: NICOTINE POLACRILEX 2 MG GUM BUC PRN (21:39)
[2019-11-01] MEDS ORDERED: MAGNESIUM CITRATE 300 ML BOTTLE PO PRN (21:39)
[2019-11-01] MEDS ORDERED: hydrOXYzine PAMOATE 25 MG CAPSULE (FP) PO PRN (21:39)
[2019-11-01] MEDS ORDERED: MAGNESIUM HYDROX 2400MG/30ML ORAL SUSPENSION 30 ML CUP PO PRN (21:39)
[2019-11-01] MEDS ORDERED: chlordiazePOXIDE HCL 25 MG CAPSULE PO ONE (21:39)
[2019-11-01] MEDS ORDERED: cloNIDine HCL 0.1 MG TABLET PO PRN (21:39)
[2019-11-01] MEDS ORDERED: IBUPROFEN 400 MG TABLET (FP) PO PRN (21:39)
[2019-11-01] MEDS ORDERED: BISMUTH SUBSALICYLATE 524 MG/30 ML UD PO PRN (21:39)
[2019-11-01] MEDS ORDERED: chlordiazePOXIDE HCL 25 MG CAPSULE PO PRN (21:39)
[2019-11-01] MEDS ORDERED: LIDOCAINE VISCOUS 2% ORAL/TOP 20 ML UNIT-DOSE CUP MM PRN (21:41)
[2019-11-01] MEDS ORDERED: METHADONE HCL 10 MG TABLET (FOR DETOX USE ONLY) PO ONE (22:15)
[2019-11-01] MEDS: chlordiazePOXIDE HCL 25 MG CAPSULE PO SCH (23:13)
[2019-11-01] MEDS: MELATONIN 5 MG TABLETS PO PRN (23:13)
[2019-11-01] MEDS: IBUPROFEN 400 MG TABLET (FP) PO PRN (23:14)
[2019-11-01] MEDS: THIAMINE HCL 100 MG TABLET (FP) PO SCH (23:21)
[2019-11-02] MEDS: chlordiazePOXIDE HCL 25 MG CAPSULE PO SCH ×4 (06:51→22:57)
[2019-11-02] MEDS: IBUPROFEN 400 MG TABLET (FP) PO PRN ×2 (06:52→22:05)
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
[2019-11-02] MEDS ORDERED: METHADONE HCL 5 MG TABLET (FOR DETOX USE ONLY) PO ONE (10:00)
[2019-11-02] MEDS: PRENATAL VITAMINS W/ FOLIC ACID TABLET (FP) PO SCH (10:08)
[2019-11-02] MEDS: BACITRACIN 15 GM TUBE TOPICAL OINTMENT TP SCH ×2 (13:22→22:03)
[2019-11-02 13:36] LABS: HEMATOCRIT 45.9 % (35.4-49); HEMOGLOBIN 15.5 GM/dL (11.7-16.9); MCHC 33.7 g/dl (32.0-35.9); MEAN CELL VOLUME 92.1 fl (80-96); MEAN PLT VOLUME 10.5 fl (7.5-11.1); PLATELET COUNT 254 K/MM3 (134-434); RBC 4.99 M/mm3 (4.00-5.60); RDW 13.3 % (11.9-15.9); WHITE BLOOD COUNT 6.8 K/mm3 (4.0-10.0)
[2019-11-02 13:50] LABS: ALBUMIN 4.1 g/dl (3.4-5.0); BILIRUBIN,TOTAL 0.3 mg/dL (0.2-1); BLOOD UREA NITROGEN 15.2 mg/dL (7-18); CREATININE 0.8 mg/dL (0.55-1.3); POTASSIUM 3.9 mmol/L (3.5-5.1); TOT PROT 7.5 g/dl (6.4-8.2)
--- NOTE | 2019-11-02 18:02 | PN ---
[facility] CIWA - CIWA Score Nausea/Vomitin-No Nausea/No Vomiting Muscle Tremors: None Anxiety: 4-Mod. Anxious/Guarded Agitation: 4-Moderately Restless Paroxysmal Sweats: 2 Orientation: 0-Oriented Tacttile Disturbances: 0-None Auditory Disturbances: 0-None Visual Disturbances: 0-None Headache: 0-None Present CIWA-Ar Total Score: 10 BHS COWS - Scale Resting Pulse: 1= HI 81-100 Sweatin= Chills/Flushing Restless Observation: 1= Difficult to Sit Still Pupil Size: 0= Normal to Room Light Bone or Joint Aches: 2= Severe Diffuse Aches Runny Nose/ Eye Tearin= Runny Nose/Eyes GI Upset > 30mins: 2= Nausea/Diarrhea Tremor Observation of Outstretched Hands: 2= Slight Tremor Visible Yawning Observation: 0= None Anxiety or Irritability: 2=Irritable/Anxious Goose Flesh Skin: 0=Smooth Skin COWS Score: 13 BHS Progress Note (SOAP) Subjective: Anxious, agitated, restless, sweating. Patient c/o red itchy bumps on abdomen and legs and requesting ointment. As per patient, he doesn't drink alcohol anymore and that he was told by peers in admitting that he should lie about drinking otherwise he will not be admitted. Patient requesting to have librium discontinued because he is no longer a drinker and that he stopped drinking alcohol. Patient c/o toothache requesting increasing motrin. As per patient, he was just released from care home 3 weeks ago and stopped drinking/doesn't drink anymore. Objective: 11/02/19 17:59 Last Vital Signs Temp Pulse Resp BP Pulse Ox 98.1 F 92 H 17 117/78 11/02/19 17:20 11/02/19 17:20 11/02/19 17:20 11/02/19 17:20 PE: ~ 3 Red bumps on abdomen along with scratches (bumps itches as per patient) Red bumps on legs as well, apparently patient scratches bumps as the bumps are red looking and without pus/discharge. Bumps on legs alongside hair root, not infected. Laboratory Tests 11/02/19 11/02/19 11/02/19 07:30 07:30 07:30 WBC 6.8 RBC 4.99 Hgb 15.5 Hct 45.9 MCV 92.1 MCH 31.0 MCHC 33.7 RDW 13.3 Plt Count 254 D MPV 10.5 Sodium 139 Potassium 3.9 Chloride 105 Carbon Dioxide 28 Anion Gap 6 L BUN 15.2 Creatinine 0.8 Est GFR (CKD-EPI)AfAm 127.70 Est GFR (CKD-EPI)NonAf 110.18 Random Glucose 80 Calcium 9.0 Total Bilirubin 0.3 AST 19 ALT 30 Alkaline Phosphatase 92 Total Protein 7.5 Albumin 4.1 RPR Titer Nonreactive Labs reviewed Assessment: 11/02/19 17:59 Withdrawal sxs Rash on abdomen and legs (scratches, bumps) noted Plan: Continue detox Encouraged PO water intake Librium discontinued as per patient's request Peridex oral solution for toothache, continue motrin prn, follow up with dentist post discharge Rash on abdomen and legs (scratches, bumps): bacitracin ointment bid
[2019-11-02] MEDS: THIAMINE HCL 100 MG TABLET (FP) PO SCH (22:03)
[2019-11-02] MEDS: CHLORHEXIDINE GLUCONATE 0.12% 15ML CUP MM SCH (22:04)
[2019-11-02] MEDS: MELATONIN 5 MG TABLETS PO PRN (23:16)
[2019-11-03] MEDS ORDERED: chlordiazePOXIDE HCL 25 MG CAPSULE PO SCH (05:00)
[2019-11-03] MEDS ORDERED: METHADONE HCL 10 MG TABLET (FOR DETOX USE ONLY) PO ONE (10:00)
[2019-11-03] MEDS: PRENATAL VITAMINS W/ FOLIC ACID TABLET (FP) PO SCH (10:40)
[2019-11-03] MEDS: CHLORHEXIDINE GLUCONATE 0.12% 15ML CUP MM SCH (10:41)
[2019-11-03] MEDS: IBUPROFEN 400 MG TABLET (FP) PO PRN ×2 (10:43→17:32)
[2019-11-03] MEDS: BENZOCAINE 20 % GEL TUBE MM PRN ×2 (14:24→22:28)
[2019-11-03] MEDS: BACITRACIN 15 GM TUBE TOPICAL OINTMENT TP SCH ×2 (15:48→22:25)
[2019-11-03] MEDS: THIAMINE HCL 100 MG TABLET (FP) PO SCH (22:25)
[2019-11-03] MEDS: METHOCARBAMOL 500 MG TABLET PO PRN (22:27)
[2019-11-04] MEDS ORDERED: chlordiazePOXIDE HCL 10 MG CAPSULE PO PRN
[2019-11-04] MEDS ORDERED: chlordiazePOXIDE HCL 10 MG CAPSULE PO SCH (05:00)
[2019-11-04] MEDS ORDERED: METHADONE HCL 5 MG TABLET (FOR DETOX USE ONLY) PO ONE (06:00)
[2019-11-04 06:31] VITALS: BP 126/73; PULSE 70; TEMP 97.2
[2019-11-04] MEDS: IBUPROFEN 400 MG TABLET (FP) PO PRN (07:25)
[2019-11-04] MEDS: BENZOCAINE 20 % GEL TUBE MM PRN (07:26)
[2019-11-04] MEDS: METHOCARBAMOL 500 MG TABLET PO PRN (07:26)
--- NOTE | 2019-11-04 09:54 | PN ---
[facility] CIWA - CIWA Score Nausea/Vomitin-No Nausea/No Vomiting Muscle Tremors: 2 Anxiety: 1-Mildly Anxious Agitation: 0-Normal Activity Paroxysmal Sweats: No Perspiration Orientation: 0-Oriented Tacttile Disturbances: 0-None Auditory Disturbances: 0-None Visual Disturbances: 0-None Headache: 0-None Present CIWA-Ar Total Score: 3 BHS COWS - Scale Resting Pulse: 0= [place] 80 or Below Sweatin= No chills or Flushing Restless Observation: 0= Sits Still Pupil Size: 0= Normal to Room Light Bone or Joint Aches: 0= None Runny Nose/ Eye Tearin= None GI Upset > 30mins: 0= None Tremor Observation of Outstretched Hands: 0= None Yawning Observation: 0= None Anxiety or Irritability: 0= None Goose Flesh Skin: 0=Smooth Skin COWS Score: 0 [facility] Progress Note (SOAP) Subjective: anxiety tooth ache Objective: 11/03/19 09:56 Vital Signs (72 hours) 11/01/19 11/01/19 11/02/19 18:24 22:45 07:26 Temperature 98.8 F 98.1 F 98.1 F Pulse Rate 109 H 93 H 93 H Respiratory 16 18 18 Rate Blood Pressure 137/92 141/73 141/73 11/02/19 11/02/19 11/02/19 07:27 09:06 14:13 Temperature 97.7 F 97.7 F 97.7 F Pulse Rate 82 78 76 Respiratory 18 18 Rate Blood Pressure 106/64 112/73 109/68 11/02/19 11/02/19 11/03/19 17:20 21:26 01:16 Temperature 98.1 F 95.7 F L Pulse Rate 92 H 81 Respiratory 17 18 16 Rate Blood Pressure 117/78 141/77 11/03/19 11/03/19 11/03/19 03:30 07:15 09:26 Temperature 96.8 F L 97.5 F L Pulse Rate 70 67 Respiratory 18 18 18 Rate Blood Pressure 118/70 100/63 11/03/19 11/03/19 11/03/19 17:05 17:07 21:24 Temperature 98.1 F 98.1 F 99.7 F H Pulse Rate 75 75 80 Respiratory 17 17 18 Rate Blood Pressure 133/78 133/78 148/86 01/07/20 01/07/20 01/07/20 00:30 03:30 06:30 Temperature 97.2 F L Pulse Rate 70 Respiratory 18 18 18 Rate Blood Pressure 126/73 Laboratory Tests 11/02/19 11/02/19 11/02/19 07:30 07:30 07:30 WBC 6.8 RBC 4.99 Hgb 15.5 Hct 45.9 MCV 92.1 MCH 31.0 MCHC 33.7 RDW 13.3 Plt Count 254 D MPV 10.5 Sodium 139 Potassium 3.9 Chloride 105 Carbon Dioxide 28 Anion Gap 6 L BUN 15.2 Creatinine 0.8 Est GFR (CKD-EPI)AfAm 127.70 Est GFR (CKD-EPI)NonAf 110.18 Random Glucose 80 Calcium 9.0 Total Bilirubin 0.3 AST 19 ALT 30 Alkaline Phosphatase 92 Total Protein 7.5 Albumin 4.1 RPR Titer Nonreactive aaox3 ambulating no acute distress Assessment: 11/03/19 09:57 mild withdrawals Plan: d/c in am anbesol lidocaine s/s
--- NOTE | 2019-11-04 10:01 | DS ---
[facility] Detox Discharge Summary Admission Date: 11/01/19 Discharge Date: 11/04/19 - History Present History: Alcohol Dependence, Cannabis Dependence, Opioid Dependence - Physical Exam Results Vital Signs: Vital Signs Temperature 97.2 F L 11/04/19 06:30 Pulse Rate 70 11/04/19 06:30 Respiratory Rate 18 11/04/19 06:30 Blood Pressure 126/73 11/04/19 06:30 O2 Sat by Pulse Oximetry (%) Pertinent Admission Physical Exam Findings: Vital Signs Temperature 97.2 F L 11/04/19 06:30 Pulse Rate 70 11/04/19 06:30 Respiratory Rate 18 11/04/19 06:30 Blood Pressure 126/73 11/04/19 06:30 O2 Sat by Pulse Oximetry (%) Laboratory Tests 11/02/19 11/02/19 11/02/19 07:30 07:30 07:30 WBC 6.8 RBC 4.99 Hgb 15.5 Hct 45.9 MCV 92.1 MCH 31.0 MCHC 33.7 RDW 13.3 Plt Count 254 D MPV 10.5 Sodium 139 Potassium 3.9 Chloride 105 Carbon Dioxide 28 Anion Gap 6 L BUN 15.2 Creatinine 0.8 Est GFR (CKD-EPI)AfAm 127.70 Est GFR (CKD-EPI)NonAf 110.18 Random Glucose 80 Calcium 9.0 Total Bilirubin 0.3 AST 19 ALT 30 Alkaline Phosphatase 92 Total Protein 7.5 Albumin 4.1 RPR Titer Nonreactive aaox3 ambulating no acute distress - Treatment Hospital Course: Detox Protocol Followed, Detoxed Safely, Responded well, Discharged Condition Good, Rehab Referral Accepted Patient has Accepted a Rehab Referral to: pt referred to [facility] - Medication Discharge Medications: Ambulatory Orders Mirtazapine [Remeron -] 30 mg PO 05/07/19 - Diagnosis (1) Opioid dependence with withdrawal Current Visit: Yes Status: Acute (2) Substance-induced sleep disorder Current Visit: Yes Status: Acute (3) Abrasions of multiple sites Current Visit: No Status: Acute (4) Abscess of scrotal wall Current Visit: No Status: Acute (5) Alcohol dependence with uncomplicated withdrawal Current Visit: Yes Status: Chronic (6) Drug-induced mood disorder Current Visit: No Status: Acute (7) Drug-induced mood disorder Current Visit: No Status: Acute (8) Head trauma Current Visit: No Status: Acute Qualifiers: Encounter type: initial encounter Qualified Code(s): S09.90XA - Unspecified injury of head, initial encounter (9) Keloid of skin Current Visit: No Status: Acute (10) Lesion of skin of scalp Current Visit: No Status: Acute (11) Muscle cramps Current Visit: No Status: Acute (12) Uncomplicated opioid dependence Current Visit: Yes Status: Chronic (13) Cannabis dependence Current Visit: No Status: Chronic (14) Mood disorder Current Visit: No Status: Chronic (15) Nicotine dependence Current Visit: Yes Status: Chronic Qualifiers: Nicotine product type: cigarettes Substance use status: uncomplicated Qualified Code(s): F17.210 - Nicotine dependence, cigarettes, uncomplicated (16) Substance induced mood disorder Current Visit: No Status: Chronic (17) PTSD (post-traumatic stress disorder) Current Visit: No Status: Ruled-out (18) Substance induced mood disorder Current Visit: No Status: Ruled-out - AMA Did Patient Leave Against Medical Advice: No
[2019-11-05] MEDS ORDERED: chlordiazePOXIDE HCL 10 MG CAPSULE PO SCH (05:00)
[2019-11-06] MEDS ORDERED: chlordiazePOXIDE HCL 10 MG CAPSULE PO ONE (05:00)
== END 2019-11-04 09:12 | disposition home or self-care (01) | DRG 773 ==
LOC: YASAS 17:15 → Y6N 22:08
PROVIDERS: ADMIT Allergy & Immunology; ATTEND Allergy & Immunology
PROC: HZ2ZZZZ Detoxification Services for Substance Abuse Treatment (ICD-10-PCS; principal; 2019-11-01)
DX: F11.23 Opioid dependence with withdrawal (principal); F10.230 Alcohol dependence with withdrawal, uncomplicated; F12.20 Cannabis dependence, uncomplicated; F17.210 Nicotine dependence, cigarettes, uncomplicated; F43.10 Post-traumatic stress disorder, unspecified; F19.24 Other psychoactive substance dependence with psychoactive substance-induced mood disorder; F19.282 Other psychoactive substance dependence with psychoactive substance-induced sleep disorder; R21 Rash and other nonspecific skin eruption; Z62.810 Personal history of physical and sexual abuse in childhood; R25.2 Cramp and spasm
CPT/HCPCS: 36415; 80053; 85027; 86593

== ENCOUNTER 2019-11-20 14:21 | Emergency (ER) | payer OTHER ==
--- NOTE | 2019-11-20 14:31 | PDOC ---
Rapid Medical Evaluation Time Seen by Provider: 11/20/19 14:29 Medical Evaluation: Allergies Allergy/AdvReac Type Severity Reaction Status Date / Time No Known Allergies Allergy Verified 11/01/19 18:24 11/20/19 14:29 CC: toothache PE: no obvious abscess or caries Orders: motrin Patient will proceed to ER for complete evaluation. Discharge Disposition - Diagnosis Toothache - Referrals - Patient Instructions - Post Discharge Activity
[2019-11-20 14:33] VITALS: BP 141/86; PULSE 115; TEMP 98.1; BMI 29.9
[2019-11-20] MEDS ORDERED: IBUPROFEN 600 MG TABLET (FP) PO ONE ×2 (15:26→15:31)
--- NOTE | 2019-11-20 15:28 | PDOC ---
History of Present Illness - General Chief Complaint: Toothache Stated Complaint: PAIN Time Seen by Provider: 11/20/19 14:29 History Source: Patient - History of Present Illness Initial Comments: 11/20/19 17:00 Chief complaint: Toothache Patient is a healthy 44-year-old male who states he just was released from custodial 1 month ago but is been having tooth pain for 2 months, saw the dentist in the retirement who told him he needed for root canals. Patient was on antibiotics. Patient came to the ER because he states he does not have insurance until November 29 and he wants some "strong pain medicine". Patient has taken Tylenol , has not taking Motrin. Patient has no fever and patient does not appear in any distress. GENERAL/CONSTITUTIONAL: No fever, weakness. dizziness HEAD, EYES, EARS, NOSE AND THROAT: No change in vision. No ear pain or discharge. No sore throat.+ Toothache CARDIOVASCULAR: No chest pain RESPIRATORY: No shortness of breath or cough GASTROINTESTINAL: No pain, nausea, vomiting, diarrhea or constipation GENITOURINARY: No dysuria MUSCULOSKELETAL: No neck or back pain SKIN: No rash NEUROLOGIC: No headache, vertigo, loss of consciousness, or loss of sensation. GENERAL: The patient is awake, alert, and fully oriented, in no acute distress. HEAD: Normal with no signs of trauma. EYES: Pupils equal, round and reactive to light, sclera anicteric, conjunctiva clear. ENT: Teeth have some fillings, no obvious swelling, no sub-lingular swelling, pharynx: no erythema, no exudate, uvula midline NECK: supple, no swelling CHEST: clear, nontender, rr ABD: soft, nontender BACK: no tenderness or signs of injury EXTREMITIES: Normal range of motion, no edema. NEUROLOGICAL: Normal speech, normal gait. SKIN: Warm, Dry Past History - Past Medical History Allergies/Adverse Reactions: Allergies Allergy/AdvReac Type Severity Reaction Status Date / Time No Known Allergies Allergy Verified 11/20/19 14:33 Home Medications: Ambulatory Orders Mirtazapine [Remeron -] 30 mg PO HS 05/07/19 Amoxicillin 875 mg PO BID #14 tablet 11/20/19 Anemia: No Asthma: No Cancer: No Cardiac Disorders: No CVA: No COPD: No CHF: No Dementia: No Diabetes: No (BORDERLINE) GI Disorders: No Disorders: No HTN: No Hypercholesterolemia: No Kidney Stones: No Liver Disease: No Seizures: No Thyroid Disease: No - Surgical History Abdominal Surgery: No Appendectomy: No Cardiac Surgery: No Cholecystectomy: No Lung Surgery: No Neurologic Surgery: No Orthopedic Surgery: No - Reproductive History Testicular Surgery: No - Immunization History Immunization Up to Date: Yes - Psycho Social/Smoking Cessation Hx Smoking Status: No Smoking History: Current some day smoker Have you smoked in the past 12 months: Yes Number of Cigarettes Smoked Daily: 2 Cigars Per Day: 0 Information on smoking cessation initiated: No 'Breaking Loose' booklet given: 11/01/19 Hx Alcohol Use: No Drug/Substance Use Hx: No Substance Use Type: Alcohol, Heroin Hx Substance Use Treatment: No *Physical Exam - Vital Signs Last Vital Signs Temp Pulse Resp BP Pulse Ox 98.1 F 115 H 18 141/86 95 11/20/19 14:29 11/20/19 14:29 11/20/19 14:29 11/20/19 14:29 11/20/19 14:29 Medical Decision Making - Medical Decision Making 11/20/19 17:02 44-year-old male who states that he was released from custodial 2 months ago, has dental issues, came here for pain medicine. States he will not have his insurance until November. Patient has been taking Tylenol, no Motrin. Patient does not have signs of swelling or deep infection. Patient is afebrile. Review of patient's EMR shows prior substance abuse issues and opioid issues. Patient does not appear acutely sick. It was clearly explained to patient that he needs to see a dentist, I explained to him that [facility]. I also explained to him he should wait until November 29 since if he needs root canal his insurance may not cover all of it anyway. I explained to him why we cannot prescribe narcotics. Patient is quite requesting antibiotics. Patient states he was on them 2 months ago. Will prescribe. And explained to patient about pain medications. Discussed issues, findings, results, applicable medications and treatments and follow-up. All these were understood and all questions were answered Discharge - Discharge Information Problems reviewed: Yes Clinical Impression/Diagnosis: Toothache Condition: Stable Disposition: HOME - Admission No - Additional Discharge Information Prescriptions: Amoxicillin 875 mg PO BID #14 tablet - Follow up/Referral - Patient Discharge Instructions Patient Printed Discharge Instructions: DI for Dental Pain Additional Instructions: Drink 2-3 L of water daily Take Tylenol 650 mg every 4 hours or Motrin 600 mg every 6 hours for fever and pain Return to the nearest ER if short of breath, unable to swallow or feeling sicker Followup with your dentist as soon as possible. As discussed you can make an appointment at either [facility] or any of the [facility] dental clinics. - Post Discharge Activity
== END 2019-11-20 15:45 | disposition home or self-care (01) ==
LOC: JERFT 14:21
DX: K08.89 Other specified disorders of teeth and supporting structures (principal); F17.210 Nicotine dependence, cigarettes, uncomplicated
CPT/HCPCS: 99281-25

== ENCOUNTER 2019-11-25 17:24 | Inpatient (IN) | payer OTHER ==
[2019-11-25 18:50] VITALS: BMI 29.9
--- NOTE | 2019-11-25 21:13 | HP ---
CIWA Score - Admission Criteria [facility]ASAS Guidelines: Admission for Medically Managed Detox: Requires at least one of the followin. CIWA greater than 12 2. Seizures within the past 24 hours 3. Delirium tremens within the past 24 hours 4. Hallucinations within the past 24 hours 5. Acute intervention needed for co occurring medical disorder 6. Acute intervention needed for co occurring psychiatric disorder 7. Severe withdrawal that cannot be handled at a lower level of care (continued vomiting, continued diarrhea, abnormal vital signs) requiring intravenous medication and/or fluids 8. Admitting History and Physical - Admission Chief Complaint: "I'm here for rehab". History of Present Illness: A 44year old male with history of depression, anxiety, and heroin use disorder who presents here requesting for rehab. Pt's last detox here was on 11/01/19 to 11/04/19. Pt states several attempts to remain sober has failed. Pt reports that he has started outpatient CD at [facility] Sunday-Sunday. Pt went to [facility] ED for tooth ache today and was given prescription for amoxicillin 875mg po bid. Pt is started on Augmentin 875mg po bid x5days. History Source: Patient Limitations to Obtaining History: No Limitations - Smoking History Smoking history: Current some day smoker Have you smoked in the past 12 months: Yes Aproximately how many cigarettes per day: 2 - Alcohol/Substance Use Hx Alcohol Use: No History of Substance Use: reports: Heroin - Social History Usual Living Arrangement: Yes: Alone Do you think of yourself as: Straight/Heterosexual ADL: Independent History of Recent Travel: No Admission ROS [facility] - HPI Allergies/Adverse Reactions: Allergies Allergy/AdvReac Type Severity Reaction Status Date / Time No Known Allergies Allergy Verified 11/25/19 18:39 Exam Limitations: No Limitations - Ebola screening Have you traveled outside of the country in the last 21 days: No Have you had contact with anyone from an Ebola affected area: No Have you been sick,other than usual withdrawal symptoms: No Do you have a fever: No - Review of Systems Constitutional: No Symptoms Reported EENT: reports: No Symptoms Reported Respiratory: reports: No Symptoms reported Cardiac: reports: No Symptoms Reported GI: reports: No Symptoms Reported : reports: No Symptoms Reported Musculoskeletal: reports: No Symptoms Reported Integumentary: reports: No Symptoms Reported Neuro: reports: No Symptoms reported Endocrine: reports: No Symptoms Reported Hematology: reports: No Symptoms Reported Psychiatric: reports: Mood/Affect Appropiate Other Systems: Reviewed and Negative Patient History - Patient Medical History Hx Anemia: No Hx Asthma: No Hx Chronic Obstructive Pulmonary Disease (COPD): No Hx Cancer: No Hx Cardiac Disorders: No Hx Congestive Heart Failure: No Hx Hypertension: No Hx Hypercholesterolemia: No Hx Pacemaker: No HX Cerebrovascular Accident: No Hx Seizures: No Hx Dementia: No Hx Diabetes: No Hx Gastrointestinal Disorders: No Hx Liver Disease: No Hx Genitourinary Disorders: No Hx Sexually Transmitted Disorders: No Hx Renal Disease (ESRD): No Hx Thyroid Disease: No Hx Human Immunodeficiency Virus (HIV): No Hx Hepatitis C: No Hx Depression: Yes Hx Suicide Attempt: No Hx Bipolar Disorder: Yes Hx Schizophrenia: No - Patient Surgical History Past Surgical History: No Hx Neurologic Surgery: No Hx Cataract Extraction: No Hx Cardiac Surgery: No Hx Lung Surgery: No Hx Breast Surgery: No Hx Breast Biopsy: No Hx Abdominal Surgery: No Hx Appendectomy: No Hx Cholecystectomy: No Hx Genitourinary Surgery: No Hx Section: No Hx Orthopedic Surgery: No Other Surgical History: left calf abscess drained 2016 Anesthesia Reaction: No - PPD History Previous Implant?: Yes Documented Results: Negative w/proof Date: 11/03/19 Results: 0MM PPD to be Administered?: No - Smoking Cessation Smoking history: Current some day smoker Have you smoked in the past 12 months: Yes Aproximately how many cigarettes per day: 2 Cigars Per Day: 0 Hx Chewing Tobacco Use: No Initiated information on smoking cessation: Yes 'Breaking Loose' booklet given: 11/25/19 - Substance & Tx. History Hx Alcohol Use: No Hx Substance Use: Yes Substance Use Type: Heroin - Substances abused Heroin Substance route: Inhalation Frequency: Daily Amount used: 3 BAGS Age of first use: 22 Date of last use: 11/23/19 Admission Physical Exam BHS - Vital Signs Vital Signs: Vital Signs - 24 hr 11/25/19 11/25/19 18:41 19:24 Temperature 99.3 F 99.3 F Pulse Rate 105 H 105 H Respiratory 18 18 Rate Blood Pressure 121/82 121/82 - Physical General Appearance: Yes: No Apparent Distress HEENTM: Yes: EOMI, Hearing grossly Normal, Normocephalic, Normal Voice, TALIB, Tm 's normal Respiratory: Yes: Chest Non-Tender, Lungs Clear, Normal Breath Sounds, No Respiratory Distress Neck: Yes: No masses,lesions,Nodules Breast: Yes: Within Normal Limits Cardiology: Yes: Regular Rhythm, Regular Rate, S1, S2 Abdominal: Yes: Normal Bowel Sounds, Non Tender, Soft Genitourinary: Yes: Within Normal Limits Back: Yes: Normal Inspection Musculoskeletal: Yes: full range of Motion, Gait Steady Extremities: Yes: Normal Capillary Refill, Normal Range of Motion, Non-Tender, Other (B/l legs with multiple scratch, pt states he picks on himself.) Neurological: Yes: Alert, Normal Response Integumentary: Yes: Dry, Warm, Other (B/l legs with multiple scratch, pt states he picks on himself.) - Diagnostic (1) Heroin use disorder, mild, abuse Current Visit: Yes Status: Acute (2) Nicotine dependence Current Visit: No Status: Chronic Qualifiers: Nicotine product type: cigarettes Substance use status: uncomplicated Qualified Code(s): F17.210 - Nicotine dependence, cigarettes, uncomplicated (3) Uncomplicated opioid dependence Current Visit: No Status: Chronic Cleared for Admission BHS - Detox or Rehab Claeared for Rehab Admission: Yes Breathalyzer - Breathalyzer Breathalyzer: 0 Urine Drug Screen - Test Device Lot number: [id number] Expiration date: 05/28/21 - Control Is test valid?: Yes - Results Drug screen NEGATIVE: No Urine drug screen results: FEN-Fentanyl, MOP-Opiates Inpatient Rehab Admission - Rehab Decision to Admit Inpatient rehab admission?: Yes - Initial Determination Are CD services needed?: Yes Free of communicable disease: Yes Not in need of hospitalization: Yes - Rehab Admission Criteria Previous failed treatment: Yes Poor recovery environment: Yes Comorbidities: Yes Lacks judgement: Yes Patient is meeting Inpatient Rehab admission criteria:: Yes
[2019-11-25] MEDS ORDERED: P-EPHED 60MG/TRIPROLIDI 2.5MG TABLET PO PRN (21:21)
[2019-11-25] MEDS ORDERED: LOPERAMIDE HCL 2 MG CAPSULE PO PRN (21:21)
[2019-11-25] MEDS ORDERED: IBUPROFEN 400 MG TABLET (FP) PO PRN (21:21)
[2019-11-25] MEDS ORDERED: guaiFENesin 200 MG/10 ML 10 ML UNIT-DOSE CUPS PO PRN (21:21)
[2019-11-25] MEDS ORDERED: MAGNESIUM HYDROX 2400MG/30ML ORAL SUSPENSION 30 ML CUP PO PRN (21:21)
[2019-11-25] MEDS ORDERED: ACETAMINOPHEN 325 MG TABLET (FP) PO PRN (21:21)
[2019-11-25] MEDS ORDERED: MENTHOL/PHENOL 1 EACH UD MM PRN (21:21)
[2019-11-25] MEDS ORDERED: MAGNESIUM CITRATE 300 ML BOTTLE PO PRN (21:21)
[2019-11-25] MEDS: THIAMINE HCL 100 MG TABLET (FP) PO SCH (23:21)
[2019-11-25] MEDS: MELATONIN 5 MG TABLETS PO PRN (23:23)
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
--- NOTE | 2019-11-26 10:12 | PN ---
[facility] Progress Note Note: Patient seen at [facility] on 12/26/19 for tooth infection. Augmentin was ordered by dentist at that time. Ordered for administration while in rehab.
[2019-11-26] MEDS: PRENATAL VITAMINS W/ FOLIC ACID TABLET (FP) PO SCH (10:42)
--- NOTE | 2019-11-26 10:55 | CONSULT ---
[facility] Psych[facility] Consult - Data Date of interview: 11/26/19 Psychiatric History: Patient was approached at bedside. 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 If I need you I will ask to see you"
[2019-11-26 12:24] LABS: HEMATOCRIT 42.7 % (35.4-49); HEMOGLOBIN 14.6 GM/dL (11.7-16.9); MCH 31.2 pg (25.7-33.7); MCHC 34.1 g/dl (32.0-35.9); MEAN CELL VOLUME 91.6 fl (80-96); MEAN PLT VOLUME 9.4 fl (7.5-11.1); PLATELET COUNT 180 K/MM3 (134-434); RBC 4.67 M/mm3 (4.00-5.60); RDW 13.2 % (11.9-15.9); WHITE BLOOD COUNT 4.9 K/mm3 (4.0-10.0)
[2019-11-26 12:34] LABS: ALBUMIN 3.4 g/dl (3.4-5.0); BILIRUBIN,TOTAL 0.3 mg/dL (0.2-1); BLOOD UREA NITROGEN 11.4 mg/dL (7-18); CALCIUM 8.5 mg/dL (8.5-10.1); CREATININE 0.8 mg/dL (0.55-1.3); POTASSIUM 3.5 mmol/L (3.5-5.1); TOT PROT 6.2 g/dl (6.4-8.2)
--- NOTE | 2019-11-26 15:32 | EKG ---
Test Reason : Blood Pressure : / mmHG Vent. Rate : 073 BPM Atrial Rate : 073 BPM P-R Int : 188 ms QRS Dur : 092 ms QT Int : 396 ms P-R-T Axes : 065 057 050 degrees QTc Int : 436 ms NORMAL SINUS RHYTHM WITH SINUS ARRHYTHMIA NORMAL ECG WHEN COMPARED WITH ECG OF 18-AUG-2018 20:59, T WAVE AMPLITUDE HAS DECREASED IN ANTERIOR LEADS Confirmed by MD Inés, Daryl ([id number]) on 11/26/2019 3:32:40 PM Referred By: Francisco EVERETT Confirmed By:Daryl Conte MD
[2019-11-26] MEDS: AMOX TR/POT CLAV 875MG/125MG TABLETS (FP) PO SCH (17:49)
[2019-11-26 19:22] LABS: PH,URINE 6.5 (5.0-8.0); URINE APPEARANCE CLEAR; URINE BILIRUBIN NEGATIVE (NEGATIVE); URINE COLOR YELLOW; URINE GLUCOSE (UA) NEGATIVE (NEGATIVE); URINE KETONE NEGATIVE (NEGATIVE); URINE LEUK ESTERASE NEGATIVE (NEGATIVE); URINE NITRITE NEGATIVE (NEGATIVE); URINE PROTEIN NEGATIVE (NEGATIVE); URINE UROBILINOGEN 0.2 mg/dL (0.2-1.0)
[2019-11-26] MEDS: MELATONIN 5 MG TABLETS PO PRN (21:33)
[2019-11-26] MEDS: THIAMINE HCL 100 MG TABLET (FP) PO SCH (21:33)
[2019-11-27] MEDS: AMOX TR/POT CLAV 875MG/125MG TABLETS (FP) PO SCH ×2 (07:35→18:01)
[2019-11-27] MEDS: PRENATAL VITAMINS W/ FOLIC ACID TABLET (FP) PO SCH (10:27)
--- NOTE | 2019-11-27 10:27 | PN ---
[facility] Progress Note Note: Pt is a 44 y/o male with a hx of KETAN admitted to rehab from 11/25/19 from [facility]. Vital Signs - 24 hr 11/27/19 11/27/19 11/27/19 00:30 03:30 07:06 Temperature 97.7 F Pulse Rate 68 Respiratory 18 18 18 Rate Blood Pressure 122/84 Laboratory Tests 11/26/19 11/26/19 11/26/19 08:00 08:00 08:00 WBC 4.9 RBC 4.67 Hgb 14.6 Hct 42.7 MCV 91.6 MCH 31.2 MCHC 34.1 RDW 13.2 Plt Count 180 D MPV 9.4 D Sodium 139 Potassium 3.5 Chloride 106 Carbon Dioxide 29 Anion Gap 4 L BUN 11.4 Creatinine 0.8 Est GFR (CKD-EPI)AfAm 127.70 Est GFR (CKD-EPI)NonAf 110.18 Random Glucose 115 H Calcium 8.5 Total Bilirubin 0.3 AST 22 ALT 27 Alkaline Phosphatase 80 Total Protein 6.2 L Albumin 3.4 Urine Color Urine Appearance Urine pH Ur Specific [place] Urine Protein Urine Glucose (UA) Urine Ketones Urine Blood Urine Nitrite Urine Bilirubin Urine Urobilinogen Ur Leukocyte Esterase RPR Titer Nonreactive 11/26/19 14:15 WBC RBC Hgb Hct MCV MCH MCHC RDW Plt Count MPV Sodium Potassium Chloride Carbon Dioxide Anion Gap BUN Creatinine Est GFR (CKD-EPI)AfAm Est GFR (CKD-EPI)NonAf Random Glucose Calcium Total Bilirubin AST ALT Alkaline Phosphatase Total Protein Albumin Urine Color Yellow Urine Appearance Clear Urine pH 6.5 Ur Specific [place] 1.027 Urine Protein Negative Urine Glucose (UA) Negative Urine Ketones Negative Urine Blood Negative Urine Nitrite Negative Urine Bilirubin Negative Urine Urobilinogen 0.2 Ur Leukocyte Esterase Negative RPR Titer Alert o x 3,denies s/h/i nad oob ambulating with steady gait. A/P new rehab pt Maintain safety increase po fluids
[2019-11-27] MEDS: THIAMINE HCL 100 MG TABLET (FP) PO SCH (21:41)
[2019-11-27] MEDS: MELATONIN 5 MG TABLETS PO PRN (21:42)
[2019-11-28] MEDS: AMOX TR/POT CLAV 875MG/125MG TABLETS (FP) PO SCH ×2 (07:42→18:11)
[2019-11-28] MEDS: PRENATAL VITAMINS W/ FOLIC ACID TABLET (FP) PO SCH (10:31)
[2019-11-28] MEDS: MELATONIN 5 MG TABLETS PO PRN (21:28)
[2019-11-28] MEDS: THIAMINE HCL 100 MG TABLET (FP) PO SCH (21:28)
[2019-11-29] MEDS: AMOX TR/POT CLAV 875MG/125MG TABLETS (FP) PO SCH (08:10)
[2019-11-29] MEDS: PRENATAL VITAMINS W/ FOLIC ACID TABLET (FP) PO SCH (10:30)
[2019-11-29] MEDS: MELATONIN 5 MG TABLETS PO PRN (21:35)
[2019-11-29] MEDS: THIAMINE HCL 100 MG TABLET (FP) PO SCH (21:35)
[2019-11-30] MEDS: hydrOXYzine PAMOATE 25 MG CAPSULE (FP) PO PRN ×2 (02:02→21:26)
[2019-11-30] MEDS: PRENATAL VITAMINS W/ FOLIC ACID TABLET (FP) PO SCH (10:27)
[2019-11-30] MEDS: THIAMINE HCL 100 MG TABLET (FP) PO SCH (21:25)
[2019-11-30] MEDS: MELATONIN 5 MG TABLETS PO PRN (21:26)
[2019-12-01] MEDS: PRENATAL VITAMINS W/ FOLIC ACID TABLET (FP) PO SCH (10:45)
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
[2019-12-01] MEDS: THIAMINE HCL 100 MG TABLET (FP) PO SCH (22:01)
[2019-12-01] MEDS: MIRTAZAPINE 30 MG TABLET (FP) PO SCH (22:01)
[2019-12-01] MEDS: MELATONIN 5 MG TABLETS PO PRN (22:01)
[2019-12-02] MEDS: PRENATAL VITAMINS W/ FOLIC ACID TABLET (FP) PO SCH (10:25)
[2019-12-02] MEDS: MIRTAZAPINE 30 MG TABLET (FP) PO SCH (22:00)
[2019-12-02] MEDS: THIAMINE HCL 100 MG TABLET (FP) PO SCH (22:00)
[2019-12-02] MEDS: MELATONIN 5 MG TABLETS PO PRN (22:01)
[2019-12-03] MEDS: PRENATAL VITAMINS W/ FOLIC ACID TABLET (FP) PO SCH (10:01)
[2019-12-03] MEDS: BACITRACIN 15 GM TUBE TOPICAL OINTMENT TP SCH (11:59)
[2019-12-03] MEDS: MIRTAZAPINE 30 MG TABLET (FP) PO SCH (21:11)
[2019-12-03] MEDS: THIAMINE HCL 100 MG TABLET (FP) PO SCH (21:11)
[2019-12-03] MEDS: MELATONIN 5 MG TABLETS PO PRN (21:12)
--- NOTE | 2019-12-04 08:42 | PN ---
S Progress Note Note: Patient was evaluated with a complaint of a scratch braydon at the inner aspect of his right leg. The scratch is very minimal and no intervention is needed at this time. Incident report completed Vital Signs Temperature 97.1 F L 12/04/19 07:24 Pulse Rate 63 12/04/19 07:24 Respiratory Rate 18 12/04/19 07:24 Blood Pressure 117/79 12/04/19 07:24 O2 Sat by Pulse Oximetry (%) Action: Monitor patient
[2019-12-04] MEDS: BACITRACIN 15 GM TUBE TOPICAL OINTMENT TP SCH ×2 (10:33→13:28)
[2019-12-04] MEDS: PRENATAL VITAMINS W/ FOLIC ACID TABLET (FP) PO SCH (10:33)
[2019-12-04] MEDS: MIRTAZAPINE 30 MG TABLET (FP) PO SCH (21:53)
[2019-12-04] MEDS: THIAMINE HCL 100 MG TABLET (FP) PO SCH (21:54)
[2019-12-04] MEDS: MELATONIN 5 MG TABLETS PO PRN (21:54)
[2019-12-05] MEDS: BACITRACIN 15 GM TUBE TOPICAL OINTMENT TP SCH (11:03)
[2019-12-05] MEDS: PRENATAL VITAMINS W/ FOLIC ACID TABLET (FP) PO SCH (11:03)
[2019-12-05] MEDS: MELATONIN 5 MG TABLETS PO PRN (21:05)
[2019-12-05] MEDS: MIRTAZAPINE 30 MG TABLET (FP) PO SCH (21:05)
[2019-12-05] MEDS: THIAMINE HCL 100 MG TABLET (FP) PO SCH (21:05)
[2019-12-05] MEDS: MAG HYDROX/AL HYDROX/SIMETH 30 ML UNIT-DOSE CUP PO PRN (22:23)
[2019-12-06] MEDS: PRENATAL VITAMINS W/ FOLIC ACID TABLET (FP) PO SCH (11:06)
[2019-12-06] MEDS: BACITRACIN 15 GM TUBE TOPICAL OINTMENT TP SCH (11:06)
[2019-12-06] MEDS: MIRTAZAPINE 30 MG TABLET (FP) PO SCH (21:56)
[2019-12-06] MEDS: MELATONIN 5 MG TABLETS PO PRN (21:56)
[2019-12-06] MEDS: THIAMINE HCL 100 MG TABLET (FP) PO SCH (21:56)
[2019-12-06] MEDS: MAG HYDROX/AL HYDROX/SIMETH 30 ML UNIT-DOSE CUP PO PRN (23:16)
[2019-12-07] MEDS: PRENATAL VITAMINS W/ FOLIC ACID TABLET (FP) PO SCH (10:46)
[2019-12-07] MEDS: BACITRACIN 15 GM TUBE TOPICAL OINTMENT TP SCH (10:46)
[2019-12-07] MEDS: THIAMINE HCL 100 MG TABLET (FP) PO SCH (21:45)
[2019-12-07] MEDS: MIRTAZAPINE 30 MG TABLET (FP) PO SCH (21:45)
[2019-12-07] MEDS: MELATONIN 5 MG TABLETS PO PRN (21:45)
[2019-12-07] MEDS: MAG HYDROX/AL HYDROX/SIMETH 30 ML UNIT-DOSE CUP PO PRN (21:47)
[2019-12-08] MEDS: BACITRACIN 15 GM TUBE TOPICAL OINTMENT TP SCH (10:58)
[2019-12-08] MEDS: PRENATAL VITAMINS W/ FOLIC ACID TABLET (FP) PO SCH (10:58)
[2019-12-08] MEDS: THIAMINE HCL 100 MG TABLET (FP) PO SCH (21:51)
[2019-12-08] MEDS: MELATONIN 5 MG TABLETS PO PRN (21:51)
[2019-12-08] MEDS: MIRTAZAPINE 30 MG TABLET (FP) PO SCH (21:51)
[2019-12-09] MEDS: BACITRACIN 15 GM TUBE TOPICAL OINTMENT TP SCH (10:51)
[2019-12-09] MEDS: PRENATAL VITAMINS W/ FOLIC ACID TABLET (FP) PO SCH (10:51)
[2019-12-09] MEDS: MELATONIN 5 MG TABLETS PO PRN (21:03)
[2019-12-09] MEDS: THIAMINE HCL 100 MG TABLET (FP) PO SCH (21:04)
[2019-12-09] MEDS: MIRTAZAPINE 30 MG TABLET (FP) PO SCH (21:04)
[2019-12-09] MEDS: MAG HYDROX/AL HYDROX/SIMETH 30 ML UNIT-DOSE CUP PO PRN (22:44)
[2019-12-10] MEDS: PRENATAL VITAMINS W/ FOLIC ACID TABLET (FP) PO SCH (10:52)
[2019-12-10] MEDS: BACITRACIN 15 GM TUBE TOPICAL OINTMENT TP SCH (10:52)
[2019-12-10] MEDS: THIAMINE HCL 100 MG TABLET (FP) PO SCH (21:04)
[2019-12-10] MEDS: hydrOXYzine PAMOATE 25 MG CAPSULE (FP) PO PRN (21:04)
[2019-12-10] MEDS: MIRTAZAPINE 30 MG TABLET (FP) PO SCH (21:04)
[2019-12-10] MEDS: MAG HYDROX/AL HYDROX/SIMETH 30 ML UNIT-DOSE CUP PO PRN (21:05)
[2019-12-11] MEDS: PRENATAL VITAMINS W/ FOLIC ACID TABLET (FP) PO SCH (10:33)
[2019-12-11] MEDS: BACITRACIN 15 GM TUBE TOPICAL OINTMENT TP SCH (10:33)
[2019-12-11] MEDS: THIAMINE HCL 100 MG TABLET (FP) PO SCH (21:15)
[2019-12-11] MEDS: hydrOXYzine PAMOATE 25 MG CAPSULE (FP) PO PRN (21:15)
[2019-12-11] MEDS: MIRTAZAPINE 30 MG TABLET (FP) PO SCH (21:16)
[2019-12-11] MEDS: MELATONIN 5 MG TABLETS PO PRN (21:16)
[2019-12-12] MEDS: PRENATAL VITAMINS W/ FOLIC ACID TABLET (FP) PO SCH (10:46)
[2019-12-12] MEDS: BACITRACIN 15 GM TUBE TOPICAL OINTMENT TP SCH (10:46)
[2019-12-12] MEDS: MAG HYDROX/AL HYDROX/SIMETH 30 ML UNIT-DOSE CUP PO PRN (19:31)
[2019-12-12] MEDS: THIAMINE HCL 100 MG TABLET (FP) PO SCH (21:54)
[2019-12-12] MEDS: MELATONIN 5 MG TABLETS PO PRN (21:54)
[2019-12-12] MEDS: MIRTAZAPINE 30 MG TABLET (FP) PO SCH (21:54)
[2019-12-13] MEDS: PRENATAL VITAMINS W/ FOLIC ACID TABLET (FP) PO SCH (10:51)
[2019-12-13] MEDS: BACITRACIN 15 GM TUBE TOPICAL OINTMENT TP SCH (10:52)
[2019-12-13] MEDS: MELATONIN 5 MG TABLETS PO PRN (21:07)
[2019-12-13] MEDS: THIAMINE HCL 100 MG TABLET (FP) PO SCH (21:07)
[2019-12-13] MEDS: MIRTAZAPINE 30 MG TABLET (FP) PO SCH (21:07)
[2019-12-14] MEDS: PRENATAL VITAMINS W/ FOLIC ACID TABLET (FP) PO SCH (10:36)
[2019-12-14] MEDS: BACITRACIN 15 GM TUBE TOPICAL OINTMENT TP SCH (10:36)
[2019-12-14] MEDS: MELATONIN 5 MG TABLETS PO PRN (21:49)
[2019-12-14] MEDS: THIAMINE HCL 100 MG TABLET (FP) PO SCH (21:49)
[2019-12-14] MEDS: MIRTAZAPINE 30 MG TABLET (FP) PO SCH (21:49)
[2019-12-15] MEDS: BACITRACIN 15 GM TUBE TOPICAL OINTMENT TP SCH (10:32)
[2019-12-15] MEDS: PRENATAL VITAMINS W/ FOLIC ACID TABLET (FP) PO SCH (10:32)
[2019-12-15] MEDS: MIRTAZAPINE 30 MG TABLET (FP) PO SCH (21:03)
[2019-12-15] MEDS: THIAMINE HCL 100 MG TABLET (FP) PO SCH (21:03)
[2019-12-15] MEDS: MELATONIN 5 MG TABLETS PO PRN (21:03)
[2019-12-15] MEDS: hydrOXYzine PAMOATE 25 MG CAPSULE (FP) PO PRN (21:05)
--- NOTE | 2019-12-16 10:52 | DS ---
[facility] Rehab Discharge Summary - [facility] Rehab Discharge Summary Admission Date: 11/25/19 Discharge Date: 12/17/19 - History Present History: Opioid dependence Additional Comments: Pt is a 44 y/o male with a KETAN admitted to rehab through [facility] and scheduled for discharge on 12/17/19. Pt met with his counselor Ms Maggi Londonleahdalton and has been referred to [facility], [address] [place] [address] for CD aftercare follow up. Pt reports he has primary care at [facility], [address] [place] [address]. . Pertinent Past History: Hx head Truama Hx Skin Keloids Hx Poor Dental Repair Mood D/O - Discharge Physical Exam Vital Signs: Vital Signs Temperature 97.5 F L 12/16/19 07:28 Pulse Rate 78 12/16/19 07:28 Respiratory Rate 18 12/16/19 07:28 Blood Pressure 125/69 12/16/19 07:28 O2 Sat by Pulse Oximetry (%) Alert o x 3,denies s/h/i nad oob ambulating with steady gait cardiac:s1 s2,rrr lugs:cta,anurag. abdomen;+bs,soft,nt,nd extremities/skin:no edema; scratch on right calf-healed with a scar; other skin areas intact. Pertinent Admission Physical Exam Findings: Laboratory Tests 11/26/19 11/26/19 11/26/19 08:00 08:00 08:00 WBC 4.9 RBC 4.67 Hgb 14.6 Hct 42.7 MCV 91.6 MCH 31.2 MCHC 34.1 RDW 13.2 Plt Count 180 D MPV 9.4 D Sodium 139 Potassium 3.5 Chloride 106 Carbon Dioxide 29 Anion Gap 4 L BUN 11.4 Creatinine 0.8 Est GFR (CKD-EPI)AfAm 127.70 Est GFR (CKD-EPI)NonAf 110.18 POC Glucometer Random Glucose 115 H Calcium 8.5 Total Bilirubin 0.3 AST 22 ALT 27 Alkaline Phosphatase 80 Total Protein 6.2 L Albumin 3.4 Urine Color Urine Appearance Urine pH Ur Specific [place] Urine Protein Urine Glucose (UA) Urine Ketones Urine Blood Urine Nitrite Urine Bilirubin Urine Urobilinogen Ur Leukocyte Esterase RPR Titer Nonreactive HIV 1&2 Ag/Ab, 4th Gen 11/26/19 12/02/19 12/06/19 14:15 07:11 07:30 WBC RBC Hgb Hct MCV MCH MCHC RDW Plt Count MPV Sodium Potassium Chloride Carbon Dioxide Anion Gap BUN Creatinine Est GFR (CKD-EPI)AfAm Est GFR (CKD-EPI)NonAf POC Glucometer 103 Random Glucose Calcium Total Bilirubin AST ALT Alkaline Phosphatase Total Protein Albumin Urine Color Yellow Urine Appearance Clear Urine pH 6.5 Ur Specific [place] 1.027 Urine Protein Negative Urine Glucose (UA) Negative Urine Ketones Negative Urine Blood Negative Urine Nitrite Negative Urine Bilirubin Negative Urine Urobilinogen 0.2 Ur Leukocyte Esterase Negative RPR Titer HIV 1&2 Ag/Ab, 4th Gen Non reactive - Treatment Discharge Condition: Discharge condition good Hospital Course: Rehabilitated safely Responded well CD aftercare referral accepted to [facility] Participated in groups and individual sessions while in treatment. - Medication Discharge Medications: Ambulatory Orders Amoxicillin 875 mg PO BID 11/25/19 Mirtazapine [Remeron -] 30 mg PO HS #30 tablet 12/16/19 Naloxone HCl [Narcan] 4 mg NS ONCE #1 spray 12/16/19 - Medication-Assisted Treatment (MAT) Medication-Assisted Treatment (MAT): No - Discharge Instructions Diet, activity, other medical instructions: Diet:Regular Activity:oob ad charisse Other medical instructions:follow up with CD aftercare at [facility] as scheduled. Follow up with primary care provider/Dental care at [place], [place] within 1 week after discharge. Primary Care/Dental Clinic Location: [place] [address] - Diagnosis (1) Opioid dependence Current Visit: Yes Status: Chronic Qualifiers: Substance use status: uncomplicated Qualified Code(s): F11.20 - Opioid dependence, uncomplicated (2) Nicotine dependence Current Visit: Yes Status: Chronic Qualifiers: Nicotine product type: cigarettes Substance use status: uncomplicated Qualified Code(s): F17.210 - Nicotine dependence, cigarettes, uncomplicated (3) Toothache Current Visit: Yes Status: Resolved (4) Nicotine dependence Current Visit: Yes Status: Chronic Qualifiers: Nicotine product type: cigarettes Substance use status: uncomplicated Qualified Code(s): F17.210 - Nicotine dependence, cigarettes, uncomplicated - Follow-up Referral Minutes to complete discharge: 20 - AMA Did Patient Leave Against Medical Advice: No
[2019-12-16] MEDS: PRENATAL VITAMINS W/ FOLIC ACID TABLET (FP) PO SCH (11:00)
[2019-12-16] MEDS: BACITRACIN 15 GM TUBE TOPICAL OINTMENT TP SCH (11:00)
--- NOTE | 2019-12-16 11:05 | PN ---
[facility] Progress Note Note: Patient is scheduled for discharge tomorrow. Script for 30 days supply of Remeron 30 mg/hs will be electronically transmitted to [facility] at [address] [place], [place] [id number]
--- NOTE | 2019-12-16 15:03 | PN ---
[facility] Progress Note Note: pt c/o split nail on left middle finger. Vital Signs - 24 hr 12/16/19 12/16/19 12/16/19 00:30 03:30 07:28 Temperature 97.5 F L Pulse Rate 78 Respiratory 16 18 18 Rate Blood Pressure 125/69 Left hand: left middle fingernail with small incomplete break at one corner slight proximity to nail bed. No bleeding noted. A/P nail break Bacitracin ointment if needed covered with bandaid and instructed to clip off nail with a nail clipper in a day or two. Pt instructed not to forcefully tear off nail by hand.
[2019-12-16] MEDS: MIRTAZAPINE 30 MG TABLET (FP) PO SCH (21:37)
[2019-12-16] MEDS: MELATONIN 5 MG TABLETS PO PRN (21:37)
[2019-12-16] MEDS: THIAMINE HCL 100 MG TABLET (FP) PO SCH (21:37)
[2019-12-17] MEDS: PRENATAL VITAMINS W/ FOLIC ACID TABLET (FP) PO SCH (11:09)
[2019-12-17] MEDS: BACITRACIN 15 GM TUBE TOPICAL OINTMENT TP SCH (11:09)
[2019-12-17] MEDS: THIAMINE HCL 100 MG TABLET (FP) PO SCH (22:01)
[2019-12-17] MEDS: MIRTAZAPINE 30 MG TABLET (FP) PO SCH (22:01)
[2019-12-17] MEDS: MELATONIN 5 MG TABLETS PO PRN (22:02)
[2019-12-18] MEDS: BACITRACIN 15 GM TUBE TOPICAL OINTMENT TP SCH (10:53)
[2019-12-18] MEDS: PRENATAL VITAMINS W/ FOLIC ACID TABLET (FP) PO SCH (10:53)
[2019-12-18] MEDS: MIRTAZAPINE 30 MG TABLET (FP) PO SCH (21:03)
[2019-12-18] MEDS: THIAMINE HCL 100 MG TABLET (FP) PO SCH (21:04)
[2019-12-18] MEDS: MELATONIN 5 MG TABLETS PO PRN (21:04)
[2019-12-19] MEDS: PRENATAL VITAMINS W/ FOLIC ACID TABLET (FP) PO SCH (10:42)
[2019-12-19] MEDS: BACITRACIN 15 GM TUBE TOPICAL OINTMENT TP SCH (10:42)
[2019-12-19] MEDS: MIRTAZAPINE 30 MG TABLET (FP) PO SCH (21:02)
[2019-12-19] MEDS: THIAMINE HCL 100 MG TABLET (FP) PO SCH (21:02)
[2019-12-19] MEDS: MELATONIN 5 MG TABLETS PO PRN (21:02)
[2019-12-20] MEDS: MAG HYDROX/AL HYDROX/SIMETH 30 ML UNIT-DOSE CUP PO PRN (09:27)
[2019-12-20] MEDS: BACITRACIN 15 GM TUBE TOPICAL OINTMENT TP SCH (10:48)
[2019-12-20] MEDS: PRENATAL VITAMINS W/ FOLIC ACID TABLET (FP) PO SCH (10:48)
[2019-12-20] MEDS: MIRTAZAPINE 30 MG TABLET (FP) PO SCH (22:02)
[2019-12-20] MEDS: THIAMINE HCL 100 MG TABLET (FP) PO SCH (22:02)
[2019-12-20] MEDS: MELATONIN 5 MG TABLETS PO PRN (22:02)
[2019-12-21] MEDS: PRENATAL VITAMINS W/ FOLIC ACID TABLET (FP) PO SCH (11:04)
[2019-12-21] MEDS: BACITRACIN 15 GM TUBE TOPICAL OINTMENT TP SCH (11:04)
[2019-12-21] MEDS: MAG HYDROX/AL HYDROX/SIMETH 30 ML UNIT-DOSE CUP PO PRN (13:36)
[2019-12-21] MEDS: THIAMINE HCL 100 MG TABLET (FP) PO SCH (22:15)
[2019-12-21] MEDS: MIRTAZAPINE 30 MG TABLET (FP) PO SCH (22:15)
[2019-12-21] MEDS: MELATONIN 5 MG TABLETS PO PRN (22:16)
[2019-12-22] MEDS: BACITRACIN 15 GM TUBE TOPICAL OINTMENT TP SCH (10:55)
[2019-12-22] MEDS: PRENATAL VITAMINS W/ FOLIC ACID TABLET (FP) PO SCH (10:55)
--- NOTE | 2019-12-22 10:56 | DS ---
[facility] Rehab Discharge Summary - [facility] Rehab Discharge Summary Admission Date: 11/25/19 Discharge Date: 12/23/19 - History Present History: Opioid dependence Additional Comments: Pt is a 44 y/o male with a hx of KETAN admitted to rehab and scheduled to discharge on 12/23/19 after completion of treatment. pt has been referred to aftercare to [facility], [address] [place] [address] for follow up care. Pt reports he has primary care at [facility], [address] [place] [id number]. . Pertinent Past History: Hx head Truam Hx Skin Keloids Hx Poor Dental Repair Mood D/O - Discharge Physical Exam Vital Signs: Vital Signs Temperature 97.1 F L 12/22/19 07:58 Pulse Rate 68 12/22/19 07:58 Respiratory Rate 18 12/22/19 07:58 Blood Pressure 141/77 12/22/19 07:58 O2 Sat by Pulse Oximetry (%) Alert o x 3,denies s/h/i nad oob ambulating with steady gait cardiac:s1 s2,rrr lungs:cta,anurag; abdomen:+bs, soft,nt,nd extremities/skin:no edema;skin intact. Pertinent Admission Physical Exam Findings: Laboratory Tests 11/26/19 11/26/19 11/26/19 08:00 08:00 08:00 WBC 4.9 RBC 4.67 Hgb 14.6 Hct 42.7 MCV 91.6 MCH 31.2 MCHC 34.1 RDW 13.2 Plt Count 180 D MPV 9.4 D Sodium 139 Potassium 3.5 Chloride 106 Carbon Dioxide 29 Anion Gap 4 L BUN 11.4 Creatinine 0.8 Est GFR (CKD-EPI)AfAm 127.70 Est GFR (CKD-EPI)NonAf 110.18 POC Glucometer Random Glucose 115 H Calcium 8.5 Total Bilirubin 0.3 AST 22 ALT 27 Alkaline Phosphatase 80 Total Protein 6.2 L Albumin 3.4 Urine Color Urine Appearance Urine pH Ur Specific [place] Urine Protein Urine Glucose (UA) Urine Ketones Urine Blood Urine Nitrite Urine Bilirubin Urine Urobilinogen Ur Leukocyte Esterase RPR Titer Nonreactive HIV 1&2 Ag/Ab, 4th Gen 11/26/19 12/02/19 12/06/19 14:15 07:11 07:30 WBC RBC Hgb Hct MCV MCH MCHC RDW Plt Count MPV Sodium Potassium Chloride Carbon Dioxide Anion Gap BUN Creatinine Est GFR (CKD-EPI)AfAm Est GFR (CKD-EPI)NonAf POC Glucometer 103 Random Glucose Calcium Total Bilirubin AST ALT Alkaline Phosphatase Total Protein Albumin Urine Color Yellow Urine Appearance Clear Urine pH 6.5 Ur Specific [place] 1.027 Urine Protein Negative Urine Glucose (UA) Negative Urine Ketones Negative Urine Blood Negative Urine Nitrite Negative Urine Bilirubin Negative Urine Urobilinogen 0.2 Ur Leukocyte Esterase Negative RPR Titer HIV 1&2 Ag/Ab, 4th Gen Non reactive - Treatment Discharge Condition: Discharge condition good Hospital Course: rehabilitated safely CD aftercare referral accepted participated in groups and individual sessions - Medication Discharge Medications: Ambulatory Orders Amoxicillin 875 mg PO BID 11/25/19 Mirtazapine [Remeron -] 30 mg PO HS #30 tablet 12/16/19 Naloxone HCl [Narcan] 4 mg NS ONCE #1 spray 12/16/19 - Medication-Assisted Treatment (MAT) Medication-Assisted Treatment (MAT): No - Discharge Instructions Diet, activity, other medical instructions: Diet:Regular Activity: oob ad charisse Other medical instructions:follow up with primary care and CD aftercare as recommended and scheduled. - Diagnosis (1) Opioid dependence Status: Chronic Qualifiers: Substance use status: uncomplicated Qualified Code(s): F11.20 - Opioid dependence, uncomplicated (2) Nicotine dependence Status: Chronic Qualifiers: Nicotine product type: cigarettes Substance use status: uncomplicated Qualified Code(s): F17.210 - Nicotine dependence, cigarettes, uncomplicated (3) Toothache Status: Resolved (4) Nicotine dependence Status: Chronic Qualifiers: Nicotine product type: cigarettes Substance use status: uncomplicated Qualified Code(s): F17.210 - Nicotine dependence, cigarettes, uncomplicated - Follow-up Referral Minutes to complete discharge: 25 - AMA Did Patient Leave Against Medical Advice: No
[2019-12-22] MEDS: MIRTAZAPINE 30 MG TABLET (FP) PO SCH (21:52)
[2019-12-22] MEDS: THIAMINE HCL 100 MG TABLET (FP) PO SCH (21:53)
[2019-12-22] MEDS: MELATONIN 5 MG TABLETS PO PRN (21:53)
[2019-12-22] MEDS: hydrOXYzine PAMOATE 25 MG CAPSULE (FP) PO PRN (21:53)
[2019-12-23 07:55] VITALS: BP 130/73; PULSE 77; TEMP 97.4
[2019-12-23] MEDS: PRENATAL VITAMINS W/ FOLIC ACID TABLET (FP) PO SCH (09:22)
[2019-12-23] MEDS: BACITRACIN 15 GM TUBE TOPICAL OINTMENT TP SCH (09:23)
== END 2019-12-23 10:00 | disposition home or self-care (01) | DRG 772 ==
LOC: YASAS 17:24 → Y5N 22:27
PROVIDERS: ADMIT Allergy & Immunology; ATTEND Allergy & Immunology
PROC: HZ42ZZZ Group Counseling for Substance Abuse Treatment, Cognitive-Behavioral (ICD-10-PCS; principal; 2019-11-25)
DX: F11.20 Opioid dependence, uncomplicated (principal); F17.210 Nicotine dependence, cigarettes, uncomplicated; F39 Unspecified mood [affective] disorder; F19.282 Other psychoactive substance dependence with psychoactive substance-induced sleep disorder; F19.24 Other psychoactive substance dependence with psychoactive substance-induced mood disorder; F32.9 Major depressive disorder, single episode, unspecified; F41.8 Other specified anxiety disorders; K08.89 Other specified disorders of teeth and supporting structures; K04.7 Periapical abscess without sinus; L60.8 Other nail disorders
CPT/HCPCS: 36415; 80053; 81003; 82962; 85027; 86593; 87389; 90853; 93005; 93010

== ENCOUNTER 2019-12-30 16:31 | Emergency (ER) | payer OTHER ==
[2019-12-30 16:48] VITALS: BP 145/85; PULSE 99; TEMP 98.3; BMI 31.6
--- NOTE | 2019-12-30 17:46 | PDOC ---
History of Present Illness - General History Source: Patient Exam Limitations: No Limitations - History of Present Illness Initial Comments: 12/30/19 17:40 Patient is a 44-year-old male who presents to the ED with complaint of body aches and a cough since yesterday. He denies having any fevers. He states that today he was feeling much better than he did yesterday but still stayed home from work. He states he needs documentation to go back to work and that is why he came to the ED. He admits to having felt weak yesterday but today feels much better. He does admit to being on antibiotics for a dental infection but he is unsure the name of the antibiotic. He does admit to having some left eye redness without any visual changes. He denies any past medical history or allergies to medications. <Viridiana Peters - Last Filed: 12/30/19 17:40> <Dee Tejeda - Last Filed: 12/31/19 13:07> - General Chief Complaint: Respiratory Stated Complaint: COLD Time Seen by Provider: 12/30/19 16:38 Past History - Past Medical History Anemia: No Asthma: No Cancer: No Cardiac Disorders: No CVA: No COPD: No CHF: No Dementia: No Diabetes: No GI Disorders: No Disorders: No HTN: No Hypercholesterolemia: No Kidney Stones: No Liver Disease: No Seizures: No Thyroid Disease: No - Surgical History Abdominal Surgery: No Appendectomy: No Cardiac Surgery: No Cholecystectomy: No Lung Surgery: No Neurologic Surgery: No Orthopedic Surgery: No - Reproductive History Testicular Surgery: No - Immunization History Immunization Up to Date: Yes - Psycho Social/Smoking Cessation Hx Smoking Status: No Smoking History: Current some day smoker Have you smoked in the past 12 months: Yes Number of Cigarettes Smoked Daily: 2 Cigars Per Day: 0 Information on smoking cessation initiated: No 'Breaking Loose' booklet given: 11/25/19 Hx Alcohol Use: No Drug/Substance Use Hx: (HEROIN 3 DAYS AGO) Substance Use Type: Heroin Hx Substance Use Treatment: No <Viridiana Peters - Last Filed: 12/30/19 17:40> <Dee Tejeda - Last Filed: 12/31/19 13:07> - Past Medical History Allergies/Adverse Reactions: Allergies Allergy/AdvReac Type Severity Reaction Status Date / Time No Known Allergies Allergy Verified 12/30/19 16:49 Home Medications: Ambulatory Orders Amoxicillin 875 mg PO BID 11/25/19 Mirtazapine [Remeron -] 30 mg PO HS #30 tablet 12/16/19 Naloxone HCl [Narcan] 4 mg NS ONCE #1 spray 12/16/19 Bacitracin Ophthalmic Oint - 0.5 inch OS BID 5 Days #1 tube 12/30/19 Review of Systems - Review of Systems Comments:: 12/30/19 17:41 - Review of Systems Able to Perform ROS?: Yes Constitutional: No: Fever, Chills, Loss of Appetite, Night Sweats, Weakness HEENTM: No: Eye Pain, Vision changes, Ear Pain, Throat Pain, Throat Swelling, Mouth Pain, Difficulty Swallowing; positive left eye redness Respiratory: No: Shortness of Breath, Wheezing, Sputum Production; positive intermittent cough Cardiac (ROS): No: Chest Pain, Chest Tightness, Palpitations, Irregular Heart Beat, Edema ABD/GI: No: Nausea, Vomiting, Abdominal Pain, Diarrhea : No Dysuria, No Hematuria, No Frequency, No Urgency Integumentary: No: Lesions, Rash Neurological: No: Headache, Numbness, Tingling, Weakness, Speech Difficulties <Viridiana Peters - Last Filed: 12/30/19 17:40> *Physical Exam - Vital Signs Last Vital Signs Temp Pulse Resp BP Pulse Ox 98.3 F 99 H 16 145/85 93 L 12/30/19 16:44 12/30/19 16:44 12/30/19 16:44 12/30/19 16:44 12/30/19 16:44 - Physical Exam 12/30/19 17:42 - Physical Exam General Appearance: Nourished, Appropriately Dressed, No Distress HEENT: EOMI, Normal Voice, No Pharyngeal Erythema, No Muffled/Hoarse voice, No Tonsillar Exudate, No Tonsillar Erythema, No Nasal Congestion, No Rhinorrhea, Hearing Grossly Normal, TMs Normal, No TM Bulging, No TM Dullness, No TM Erythema; left eye conjunctive a injected without purulence Neck: Supple, No Lymphadenopathy (R), No Lymphadenopathy (L), No Rigidity, No Decreased range of motion Respiratory/Chest: Lungs Clear, Normal Breath Sounds. No Respiratory Distress, No Accessory Muscle Use; good air entry bilaterally no wheezes/rales/rhonchi Cardiovascular: Regular Rhythm, Regular Rate, S1, S2 Gastrointestinal/Abdominal: Normal Bowel Sounds, Soft. Non-tender, No Guarding , No Rebound, No Rigidity Musculoskeletal: Normal Inspection. No Decreased Range of Motion Extremity: Normal Capillary Refill, Normal Inspection Integumentary: Normal Color, Dry. No Rash Neurologic: flask pusher II-XII NML intact, Fully Oriented, Alert, Normal Mood/Affect, Normal Response <Viridiana Peters - Last Filed: 12/30/19 17:40> - Vital Signs Last Vital Signs Temp Pulse Resp BP Pulse Ox 98.3 F 99 H 16 145/85 93 L 12/30/19 16:44 12/30/19 16:44 12/30/19 16:44 12/30/19 16:44 12/30/19 16:44 <Dee Tejeda - Last Filed: 12/31/19 13:07> ED Treatment Course - ADDITIONAL ORDERS Additional order review: 12/30/19 17:47 Laboratory Tests 12/30/19 17:05 Influenza A (Rapid) Negative Influenza B (Rapid) Negative <Viridiana Peters - Last Filed: 12/30/19 17:40> Medical Decision Making - Medical Decision Making 12/30/19 17:43 Assessment: Patient is a 44-year-old male with a URI. He also has a left conjunctivitis. Plan: -Flu swab sent which was negative -We will discharge the patient with bacitracin ophthalmic for his left eye -He can follow-up with his primary doctor within 1 to 2 days for repeat evaluation. He has been made aware that his illness is likely viral and will need several days before he feels better. He understands and agrees with this treatment plan and he is stable for discharge. <Viridiana Peters - Last Filed: 12/30/19 17:40> - Medical Decision Making agree with midlevel provider, WIN Peters with HPI/PE and workup as documented, disposition outlined VS reviewed, unremarkable Vital Signs Temperature 98.3 F 12/30/19 16:44 Pulse Rate 99 H 12/30/19 16:44 Respiratory Rate 16 12/30/19 16:44 Blood Pressure 145/85 12/30/19 16:44 O2 Sat by Pulse Oximetry (%) 93 L 12/30/19 16:44 anticipate discharge with supportive care, URI and mild conjunctivitis, with topical bacitracin ointment 12/31/19 13:06 <Dee Tejeda - Last Filed: 12/31/19 13:07> Discharge - Discharge Information Problems reviewed: Yes <Viridiana Peters Roberto - Last Filed: 12/30/19 17:40> <Dee Tejeda - Last Filed: 12/31/19 13:07> - Discharge Information Clinical Impression/Diagnosis: URI (upper respiratory infection) Qualifiers: URI type: acute nasopharyngitis (common cold) Qualified Code(s): J00 - Acute nasopharyngitis [common cold] Conjunctivitis, left eye Qualifiers: Conjunctivitis type: acute Acute conjunctivitis type: unspecified Qualified Code(s): H10.32 - Unspecified acute conjunctivitis, left eye Condition: Stable Disposition: HOME - Additional Discharge Information Prescriptions: Bacitracin Ophthalmic Oint - 0.5 inch OS BID 5 Days #1 tube - Patient Discharge Instructions Patient Printed Discharge Instructions: DI for Conjunctivitis, DI for Common Cold Additional Instructions: Be sure to keep your hands clean and do not rub your eyes. Do not use the same towel for your left eye as you do for the rest your face as you are pinkeye can spread to your other side. Get plenty of rest and drink plenty of fluids. Take Tylenol or ibuprofen for body aches or fevers. - Post Discharge Activity Work/Back to School Note: Back to Work
== END 2019-12-30 18:02 | disposition home or self-care (01) ==
LOC: JER 16:31
DX: J00 Acute nasopharyngitis [common cold] (principal); H10.32 Unspecified acute conjunctivitis, left eye; F11.90 Opioid use, unspecified, uncomplicated
CPT/HCPCS: 87804; 99283-25

== ENCOUNTER 2020-01-05 14:10 | Emergency (ER) | payer OTHER ==
[2020-01-05 15:01] VITALS: BMI 32.4
--- NOTE | 2020-01-05 15:02 | PDOC ---
Rapid Medical Evaluation Chief Complaint: Cold Symptoms Time Seen by Provider: 01/05/20 14:59 Medical Evaluation: Allergies Allergy/AdvReac Type Severity Reaction Status Date / Time No Known Allergies Allergy Verified 01/05/20 14:58 01/05/20 14:59 I have performed a brief in-person evaluation of this patient. The patient presents with a chief complaint of:viral syndrome. Dx w/ same 3/ w/ neg flu swab. States he still feels fatigue. No fever or SOB. No recent travel or sick contacts Pertinent physical exam findings:stable and well aristides I have ordered the following:nothing The patient will proceed to the ED for further evaluation Discharge Disposition - Diagnosis Viral syndrome - Referrals - Patient Instructions - Post Discharge Activity
[2020-01-05] MEDS ORDERED: SODIUM CHLORIDE 0.9% 500 ML INFUS.BAG IV ONE (15:42)
--- NOTE | 2020-01-05 15:50 | PDOC ---
History of Present Illness - General Chief Complaint: Cold Symptoms Stated Complaint: COUGH/DIARRHEA Time Seen by Provider: 01/05/20 14:59 History Source: Patient Exam Limitations: No Limitations - History of Present Illness Initial Comments: 01/05/20 15:47 Patient is a 44-year-old male with no past medical history who presents to the ED with complaint of feeling tired and having several episodes of diarrhea since yesterday. The patient was seen in the ED on 12/30/2023 a cough and malaise. He was also treated for conjunctivitis with bacitracin ophthalmic. He states use the antibiotic ointment as prescribed and his eyes got better. He does still admit to having a cough without any fevers or chills. He does admit to having several episodes of diarrhea and has had 2 episodes in the last hour and a half. He denies any blood or mucus in his stool. He has not been taking anything for his symptoms. He does admit to requiring documentation that he was in the emergency department since he missed work today. Past History - Past Medical History Allergies/Adverse Reactions: Allergies Allergy/AdvReac Type Severity Reaction Status Date / Time No Known Allergies Allergy Verified 01/05/20 14:58 Home Medications: Ambulatory Orders Mirtazapine [Remeron -] 30 mg PO HS #30 tablet 12/16/19 Naloxone HCl [Narcan] 4 mg NS ONCE #1 spray 12/16/19 Anemia: No Asthma: No Cancer: No Cardiac Disorders: No CVA: No COPD: No CHF: No Dementia: No Diabetes: No GI Disorders: No Disorders: No HTN: No Hypercholesterolemia: No Kidney Stones: No Liver Disease: No Seizures: No Thyroid Disease: No - Surgical History Abdominal Surgery: No Appendectomy: No Cardiac Surgery: No Cholecystectomy: No Lung Surgery: No Neurologic Surgery: No Orthopedic Surgery: No - Reproductive History Testicular Surgery: No - Immunization History Immunization Up to Date: Yes - Psycho Social/Smoking Cessation Hx Smoking Status: No Smoking History: Never smoked Have you smoked in the past 12 months: Yes Number of Cigarettes Smoked Daily: 2 Cigars Per Day: 0 'Breaking Loose' booklet given: 11/25/19 Hx Alcohol Use: No Drug/Substance Use Hx: No Substance Use Type: Heroin Hx Substance Use Treatment: No Review of Systems - Review of Systems Comments:: 03/09/20 15:48 - Review of Systems Able to Perform ROS?: Yes Constitutional: No: Fever, Chills, Loss of Appetite, Night Sweats, Weakness HEENTM: No: Eye Pain, Vision changes, Ear Pain, Throat Pain, Throat Swelling, Mouth Pain, Difficulty Swallowing Respiratory: No: Cough, Shortness of Breath, Wheezing, Sputum Production Cardiac (ROS): No: Chest Pain, Chest Tightness, Palpitations, Irregular Heart Beat, Edema ABD/GI: No: Nausea, Vomiting, Abdominal Pain, positive: Diarrhea : No Dysuria, No Hematuria, No Frequency, No Urgency Musculoskeletal: No: Muscle Pain, Back Pain, Joint Pain, Muscle Weakness, Neck Pain Integumentary: No: Lesions, Rash Neurological: No: Headache, Numbness, Tingling, Weakness, Speech Difficulties *Physical Exam - Vital Signs Last Vital Signs Temp Pulse Resp BP Pulse Ox 98.1 F 93 H 16 147/84 95 01/05/20 14:58 01/05/20 14:58 01/05/20 14:58 01/05/20 14:58 01/05/20 14:58 - Physical Exam 01/05/20 15:48 - Physical Exam General Appearance: Nourished, Appropriately Dressed, No Distress HEENT: EOMI, Normal Voice, No Pharyngeal Erythema, No Muffled/Hoarse voice, No Tonsillar Exudate, No Tonsillar Erythema, No Nasal Congestion, No Rhinorrhea, Hearing Grossly Normal, TMs Normal, No TM Bulging, No TM Dullness, No TM Erythema Neck: Supple, No Lymphadenopathy (R), No Lymphadenopathy (L), No Rigidity, No Decreased range of motion Respiratory/Chest: Lungs Clear, Normal Breath Sounds. No Respiratory Distress, No Accessory Muscle Use; good air entry bilaterally, no wheezes/rales/rhonchi Cardiovascular: Regular Rhythm, Regular Rate, S1, S2 Gastrointestinal/Abdominal: Normal Bowel Sounds, Soft. Non-tender, No Guarding, No Rebound, No Rigidity; no reproducible abdominal tenderness to palpation, no CVA tenderness bilateral Musculoskeletal: Normal Inspection. No Decreased Range of Motion Extremity: Normal Capillary Refill, Normal Inspection Integumentary: Normal Color, Dry. No Rash Neurologic: academic affairs dean II-XII NML intact, Fully Oriented, Alert, Normal Mood/Affect, Normal Response ED Treatment Course - LABORATORY CBC & Chemistry Diagram: 01/05/20 16:10 01/05/20 16:10 - RADIOLOGY Radiology Studies Ordered: Category Date Time Status CHEST PA & LAT [RAD] Stat Radiology 01/05/20 15:42 Ordered Medical Decision Making - Medical Decision Making 01/05/20 15:49 Assessment: Patient is a 44-year-old male with cough and diarrhea since yesterday. He was previously tested negative for influenza. He has no fevers. Plan: -Saline lock and NS bolus ordered -CBC and CMP ordered -Chest x-ray ordered -Will reassess 01/05/20 17:16 The patient's chest x-ray is negative for acute pathology. His labs are all within normal limits except he has slightly elevated LFTs. He has been made aware this. He has been advised that he should follow-up with his primary doctor for further evaluation and treatment of elevated LFTs. He will be discharged home and he will follow-up with primary within 1 to 2 days for repeat evaluation. He understands and agrees with this treatment plan and the patient is stable for discharge. Discharge - Discharge Information Problems reviewed: Yes Clinical Impression/Diagnosis: Viral syndrome Diarrhea Qualifiers: Diarrhea type: unspecified type Qualified Code(s): R19.7 - Diarrhea, unspecified Condition: Stable Disposition: HOME - Follow up/Referral Referrals: [facility] [Provider Group] - 2 Days - Patient Discharge Instructions Patient Printed Discharge Instructions: DI for Viral Syndrome, DI for Diarrhea and Traveler's Diarrhea -- Adult Additional Instructions: Get plenty of rest and drink plenty of fluids. Eat a bland diet for the next several days. Avoid fatty, fried, acidic, greasy foods. Follow-up with primary care within 1 to 2 days for repeat evaluation. If you are unable to follow-up with your previous primary care doctor, 1 has been referred to you. - Post Discharge Activity Work/Back to School Note: Back to Work
[2020-01-05 16:30] LABS: EOS % 2.3 % (0-4.5); HEMATOCRIT 47.1 % (35.4-49); HEMOGLOBIN 15.9 GM/dL (11.7-16.9); LYMPH % 24.3 % (8-40); MCH 30.9 pg (25.7-33.7); MCHC 33.8 g/dl (32.0-35.9); MEAN CELL VOLUME 91.6 fl (80-96); MEAN PLT VOLUME 8.8 fl (7.5-11.1); MONO % 11.7 % (3.8-10.2); NEUT % 60.7 % (42.8-82.8); PLATELET COUNT 324 K/MM3 (134-434); RBC 5.15 M/mm3 (4.00-5.60); RDW 13.7 % (11.9-15.9); WHITE BLOOD COUNT 6.5 K/mm3 (4.0-10.0)
[2020-01-05 16:55] LABS: ALBUMIN 3.6 g/dl (3.4-5.0); BILIRUBIN,TOTAL 0.4 mg/dL (0.2-1); BLOOD UREA NITROGEN 16.5 mg/dL (7-18); CALCIUM 8.6 mg/dL (8.5-10.1); POTASSIUM 4.3 mmol/L (3.5-5.1); TOT PROT 7.3 g/dl (6.4-8.2)
[2020-01-05 17:42] VITALS: BP 139/80; PULSE 90; TEMP 98
== END 2020-01-05 17:40 | disposition home or self-care (01) ==
LOC: JER 14:10
DX: B34.9 Viral infection, unspecified (principal); R19.7 Diarrhea, unspecified
CPT/HCPCS: 36415; 71046-TC-FY; 80053; 85025; 99284-25